=== PATIENT | male | born 1995 | race Caucasian/White ===

== ENCOUNTER 2017-10-07 16:39 | Emergency (ER) | payer SELFPAY ==
[2017-10-07 17:28] VITALS: BP 123/69; PULSE 73; RESP 18; TEMP 36.4; O2SAT 98; BMI 31.1
--- NOTE | 2017-10-07 17:35 | XR_ITS ---
XR chest 2V HISTORY: Shortness of air ITS.REASON: SOA ORDERING PHYSICIAN: Jarred Trivedi MD PATIENT AGE: 22 years COMPARISON: 05/12/2008 FINDINGS: The cardiomediastinal silhouette and pulmonary vascularity are within normal limits. The lungs are clear without infiltrates, suspicious nodules, or pleural effusions. Nodular opacity is once again noted in the lung base posteriorly as seen on the lateral view unchanged measuring 8 mm may represent a granuloma. No acute bony abnormalities. IMPRESSION: No change with no acute finding
[2017-10-07 17:48] VITALS: PULSE 72; PULSE 80
[2017-10-07 18:02] VITALS: BP 114/64; PULSE 77; RESP 18; TEMP 36.9; O2SAT 100
--- NOTE | 2017-10-07 19:19 | HMH.EDASTHMA ---
ED Disposition Clinical Impression: Asthma with acute exacerbation Qualifiers: Asthma severity: moderate Asthma persistence: unspecified Qualified Code(s): J45.901 - Unspecified asthma with (acute) exacerbation Disposition: Home, Self-Care Condition on Discharge: Good Instructions: Asthma -- Adult Additional Instructions: use meds and see pcp for follow up Prescriptions: predniSONE [Prednisone 20mg Tab] 20 mg PO DAILY #10 tab - Critical Care Critical Care Time: No Attestation: On 10/07/17, the high probability of a clinically significant, sudden or life threatening deterioration of the following system(s) required my full and direct attention, intervention and personal management. The time I documented below is in addition to time spent performing reported procedures but includes the following listed in this critical care notation. Medical Decision Making - Medical Records Medical records reviewed: Yes: I reviewed the patient's medical records. Vital Signs: 10/07/17 17:28 10/07/17 17:48 10/07/17 18:02 Temperature 97.6 F 98.5 F Temperature Source Oral Oral Pulse Rate 80 Pulse Rate [Apical] 73 77 Respiratory Rate 18 18 Blood Pressure [Right Arm] 123/69 114/64 Blood Pressure Mean [Right Arm] 87 80 Blood Pressure Source [Right Arm] Automatic Cuff Automatic Cuff Blood Pressure Position [Right Arm] Sitting Sitting 02 Sat by Pulse Oximetry 98 100 Oxygen Delivery Method Room Air Room Air Orders (Tests/Meds): ED MEDICATIONS Generic Name Dose Route Start Last Admin Trade Name Freq PRN Reason Stop Dose Admin Albuterol Sulfate 2 puffs 10/07/17 17:36 10/07/17 17:39 Proventil-Hfa 90mcg/Puff Inhaler 11/06/17 17:35 2 1000units Q6HP PRN Administration Shortness Of Breath Discontinued Medications Generic Name Dose Route Start Last Admin Trade Name Freq PRN Reason Stop Dose Admin Albuterol/Ipratropium 3 ml 10/07/17 17:34 10/07/17 17:40 Duoneb 3ml Neb IH 10/07/17 17:35 3 ml ONCE ONE Administration Miscellaneous 1 unit 10/07/17 17:34 10/07/17 17:40 Aerochamber/Optihaler MC 10/07/17 17:35 1 unit ONCE ONE Administration Miscellaneous 1 unit 10/07/17 17:36 Aerochamber/Optihaler MC 10/07/17 17:37 ONCE ONE ORDERS Category Date Time Status CXR 2 view (NOT portable) [XR chest 2V] Stat Exams 10/07/17 17:35 Taken - Radiology Data #1 Image(s): Chest Image Reviewed: Yes I reviewed the patient's radiology image Preliminary Findings: Normal/NAD - ECG Data Tracing #1 I reviewed this ECG and interpreted as documented below: Ischemic changes: non-specific ST-T wave changes - Jon Inquiry Pt receiving controlled substance: No Asthma HPI - General Chief Complaint: Asthma Stated Complaint: astshma attack Time Seen by Provider: 10/07/17 19:19 Mode of Arrival - ED Triage: Ambulatory ED Triage Source of Information: Patient, Significant Other ED Triage Limitations: No Limitations Description of Symptoms (Recalled from ER Triage Doc. by RN): ASTHMA ATTACK - History of Present Illness HPI Narrative: acute episodes of asthma over the last 3 days MD complaint: asthma attack , wheezing Onset (ago): day(s) Severity: moderate Associated symptoms: dry cough Asthma History: childhood onset - Related Data Current Asthma Therapy: none Previous Rx's Medication Instructions Recorded predniSONE [Prednisone 20mg 20 mg PO DAILY #10 tab 10/07/17 Tab] Allergies Allergy/AdvReac Type Severity Reaction Status Date / Time No Known Allergies Allergy Unverified 08/27/17 15:01 [facility] History I have reviewed the patient's past medical history: Yes Medical History: Denies:: Cancer, Diabetes Mellitus Type 1, Diabetes Mellitus Type 2, MRSA Amputation: No Fractures: No - *Social History Alcohol Intake: never - Psychiatric History Expresses thoughts of harming self/others: None Suicide Plan Desc
--- NOTE | 2017-10-07 19:24 | ED_ITS ---
ED Disposition Clinical Impression: Asthma with acute exacerbation Qualifiers: Asthma severity: moderate Asthma persistence: unspecified Qualified Code(s): J45.901 - Unspecified asthma with (acute) exacerbation Disposition: Home, Self-Care Condition on Discharge: Good Instructions: Asthma -- Adult Additional Instructions: use meds and see pcp for follow up Prescriptions: predniSONE [Prednisone 20mg Tab] 20 mg PO DAILY #10 tab - Critical Care Critical Care Time: No Attestation: On 10/07/17, the high probability of a clinically significant, sudden or life threatening deterioration of the following system(s) required my full and direct attention, intervention and personal management. The time I documented below is in addition to time spent performing reported procedures but includes the following listed in this critical care notation. Medical Decision Making - Medical Records Medical records reviewed: Yes: I reviewed the patient's medical records. Vital Signs: 10/07/17 17:28 10/07/17 17:48 10/07/17 18:02 Temperature 97.6 F 98.5 F Temperature Source Oral Oral Pulse Rate 80 Pulse Rate [Apical] 73 77 Respiratory Rate 18 18 Blood Pressure [Right Arm] 123/69 114/64 Blood Pressure Mean [Right Arm] 87 80 Blood Pressure Source [Right Arm] Automatic Cuff Automatic Cuff Blood Pressure Position [Right Arm] Sitting Sitting 02 Sat by Pulse Oximetry 98 100 Oxygen Delivery Method Room Air Room Air Orders (Tests/Meds): ED MEDICATIONS Generic Name Dose Route Start Last Admin Trade Name Freq PRN Reason Stop Dose Admin Albuterol Sulfate 2 puffs 10/07/17 17:36 10/07/17 17:39 Proventil-Hfa 90mcg/Puff Inhaler 11/06/17 17:35 2 1000units Q6HP PRN Administration Shortness Of Breath Discontinued Medications Generic Name Dose Route Start Last Admin Trade Name Freq PRN Reason Stop Dose Admin Albuterol/Ipratropium 3 ml 10/07/17 17:34 10/07/17 17:40 Duoneb 3ml Neb IH 10/07/17 17:35 3 ml ONCE ONE Administration Miscellaneous 1 unit 10/07/17 17:34 10/07/17 17:40 Aerochamber/Optihaler MC 10/07/17 17:35 1 unit ONCE ONE Administration Miscellaneous 1 unit 10/07/17 17:36 Aerochamber/Optihaler MC 10/07/17 17:37 ONCE ONE ORDERS Category Date Time Status CXR 2 view (NOT portable) [XR chest 2V] Stat Exams 10/07/17 17:35 Taken - Radiology Data #1 Image(s): Chest Image Reviewed: Yes I reviewed the patient's radiology image Preliminary Findings: Normal/NAD - ECG Data Tracing #1 I reviewed this ECG and interpreted as documented below: Ischemic changes: non-specific ST-T wave changes - Jon Inquiry Pt receiving controlled substance: No Asthma HPI - General Chief Complaint: Asthma Stated Complaint: astshma attack Time Seen by Provider: 10/07/17 19:19 Mode of Arrival - ED Triage: Ambulatory ED Triage Source of Information: Patient, Significant Other ED Triage Limitations: No Limitations Description of Symptoms (Recalled from ER Triage Doc. by RN): ASTHMA ATTACK - History of Present Illness HPI Narrative: acute episodes of asthma over the last 3 days MD complaint: asthma attack , wheezing Onset (ago): day(s)
[2017-10-07 19:31] VITALS: BP 137/74; PULSE 62; RESP 18; O2SAT 100
== END 2017-10-07 19:34 | disposition home or self-care (01) ==
PROVIDERS: Emergency Provider Emergency Medicine
DX: J45.901 Unspecified asthma with (acute) exacerbation (principal); Z88.1 Allergy status to other antibiotic agents
CPT/HCPCS: 71046; 93005; 93041; 99283

== ENCOUNTER → 2019-11-02 08:16 | Outpatient (CLI) | payer OTHER, SELFPAY ==
--- NOTE | 2019-11-02 08:21 | MR_ITS ---
PROCEDURE: MR KNEE LT WO CON CLINICAL INDICATION: evaluate for meniscal tear Pain, popping and swelling, medial pain the COMPARISON: XR KNEE LT 3V from 10/11/2019 TECHNIQUE: Routine multiplanar multi echo sequences are performed without gadolinium enhancement. FINDINGS: There is a moderate degree of motion artifact which does decrease the sensitivity of the exam. Study was repeated and best images utilized. The cruciate ligaments appear intact. The collateral ligaments, patellar tendon, and quadriceps tendon appears intact. No obvious meniscal tear. The patellar cartilage is preserved. There is some minimal lateral patellar subluxation. Small knee joint effusion is noted. The joint spaces are well preserved with no significant arthritic changes apparent. IMPRESSION: No definite evidence internal derangement. Motion artifact does somewhat limit the exam. There is a small knee joint effusion Dictated by: Massimo Sunshine MD 11/04/2019 08:21 Electronically signed by Massimo Sunshine MD in [place] 11/04/2019 08:21
== END ==
PROVIDERS: PCP Family Medicine; Visit Provider Orthopaedic Surgery
DX: S83.92XA Sprain of unspecified site of left knee, initial encounter (principal)
CPT/HCPCS: 73721

== ENCOUNTER 2019-12-03 16:00 | Outpatient (RCR) | payer OTHER, SELFPAY | END 2019-12-03 16:05 | disposition home or self-care (01) | LOC: PT 16:00 | PROVIDERS: PCP Family Medicine; Visit Provider Orthopaedic Surgery | DX: M25.562 Pain in left knee (principal) | CPT/HCPCS: 97010; 97014; 97110; 97163; 97760; G0283 ==

== ENCOUNTER 2020-02-13 13:40 | Emergency (ER) | payer OTHER, SELFPAY ==
[2020-02-13 14:01] VITALS: BP 121/70; PULSE 70; RESP 20; TEMP 37.4; O2SAT 98; BMI 38.6
--- NOTE | 2020-02-13 14:16 | HMH.EDUTC ---
[facility] [place] Clinical Impression: Gastroenteritis Asthma with acute exacerbation Qualifiers: Asthma severity: unspecified severity Asthma persistence: unspecified Qualified Code(s): J45.901 - Unspecified asthma with (acute) exacerbation Disposition: Home, Self-Care Condition on Discharge: Good Instructions: Asthma -- Adult, Viral Gastroenteritis Additional Instructions: Drink plenty of fluids. Take tylenol or ibuprofen for pain or fever. Take the medications as directed. Follow up with your regular doctor. GO TO THE ER FOR ANY WORSENING SYMPTOMS Prescriptions: Ondansetron [Zofran 4mg ODT] 4 mg PO Q8HP PRN #20 tab.rapdis PRN Reason: Nausea Transmission Status: Received by [facility] # Azithromycin [Z-Jeremias 250mg Tab*] 250 mg PO UD DOSE PK #6 tab Transmission Status: Received by [facility] # Referrals: Slim Yuen MD [Primary Care Provider] - Forms: Work/School Release Time of Disposition: 14:32 Medical Decision Making - Medical Records Medical records reviewed: No: I reviewed the patient's medical records. - Jon Inquiry Pt receiving controlled substance: No Vital Signs: 02/13/20 14:01 02/13/20 14:36 Temperature 99.3 F 99.3 F Temperature Source Oral Oral Pulse Rate 81 Pulse Rate [Right Brachial] 70 Respiratory Rate 20 22 Blood Pressure 129/68 Blood Pressure [Right Arm] 121/70 Blood Pressure Mean [Right Arm] 87 Blood Pressure Source Automatic Cuff Blood Pressure Source [Right Arm] Automatic Cuff Blood Pressure Position Sitting Blood Pressure Position [Right Arm] Sitting 02 Sat by Pulse Oximetry 98 Oxygen Delivery Method Room Air Room Air Orders (Tests/Meds): ORDERS Category Date Time Status SARS-CoV-2, [place] ([place]) Stat Lab 02/13/20 14:30 Received [facility] [place] HPI - General Stated complaint: vomiting,diarrhea,cough Time Seen by Provider: 02/13/20 14:16 Mode of Arrival: Ambulatory Source of Information: Patient Limitations: No Limitations Description of Symptoms (Recalled from Triage Doc. by RN): Pt c/o n/v, diarrhea, fever x 1 weeks. he denies any other symptoms at this time. HEENT Symptoms (Recalled from RN notes): No Resp Symptoms (Recalled from RN notes): No Skin Symptoms (Recalled from RN notes): No MS Symptoms (Recalled from RN notes): No Functional Status (Recalled from RN notes): Na - History of Present Illness Provider Complaint: He c/o n/v/d for the past 1 week. He has also had a dry cough and had a fever up to 100.4 at times. He states that he does not feel very bad and his GI symptoms are getting better, but his work ([employer]) would like for him to be checked for COVID-19 before he returns there. He does have a history of asthma, but denies significant worsening of his symptoms. - Related Data Home Medications Medication Instructions Recorded Confirmed albuterol sulfate 90 mcg/actuation INHALATION 10/23/19 12/04/19 aerosol inhaler beclomethasone dipropionate 80 INTRANASAL 10/23/19 12/04/19 mcg/actuation nasal HFA inhaler Previous Rx's Medication Instructions Recorded Meloxicam [Mobic 15 mg tab] 15 mg PO DAILY #10 tab 10/11/19 Azithromycin [Z-Jeremias 250mg Tab*] 250 mg PO UD DOSE PK #6 tab 02/13/20 Ondansetron [Zofran 4mg ODT] 4 mg PO Q8HP PRN #20 tab.rapdis 02/13/20 Allergies Allergy/AdvReac Type Severity Reaction Status Date / Time No Known Allergies Allergy Verified 02/13/20 14:08 - Worker's Comp Is this a Worker's Comp case?: No H History - Hepatitis A Screen Drug use history?: No High risk sexual behaviors?: No History of sexually transmitted infection?: No Currently employed?: No Childcare worker?: No Do you have indoor plumbing?: Yes Do you have electricity?: Yes Attestation statement:: This patient has been screened for Hepatitis A risk factors. I have reviewed the patient's past medical history: Yes Medical History: Reports:: Asthma Denies:: Cancer,
[2020-02-13 14:36] VITALS: BP 129/68; PULSE 81; RESP 22; TEMP 37.4; O2SAT 98
[2020-02-15 08:25] LABS: Covid-19 Nasal PCR Sendout UK NOT DETECTED
== END 2020-02-13 14:39 | disposition home or self-care (01) ==
PROVIDERS: Emergency Provider Nurse Practitioner Family; PCP Family Medicine
DX: K52.9 Noninfective gastroenteritis and colitis, unspecified (principal); J45.901 Unspecified asthma with (acute) exacerbation
CPT/HCPCS: 99201; U0003

== ENCOUNTER 2020-02-16 16:26 | Emergency (ER) | payer OTHER, SELFPAY ==
[2020-02-16 16:56] VITALS: BP 147/83; PULSE 98; RESP 19; TEMP 36.6; O2SAT 94; BMI 40.3
--- NOTE | 2020-02-16 17:01 | HMH.EDUTC ---
[facility] [place] Disposition Clinical Impression: Abdominal discomfort in right upper quadrant Disposition: Home, Self-Care Condition on Discharge: Good Instructions: Acute Abdominal Pain, DI for General Gallbladder Conditions Additional Instructions: Make sure to follow up with Family doctor to complete ordered testing as was ordered earlier today by your PCP *Return if needed Straight to ER if abdominal pain returns or worsens Follow up with family doctor in the next 48-72 hours if no improvement or any worsening of symptoms Referrals: Slim Yuen MD [Primary Care Provider] - As needed Forms: Work/School Release Time of Disposition: 17:38 Medical Decision Making - Jon Inquiry Pt receiving controlled substance: No Jon was queried for this patient: No Vital Signs: 02/16/20 16:56 Temperature 97.9 F Temperature Source Oral Pulse Rate [Right Brachial] 98 H Respiratory Rate 19 Blood Pressure [Right Arm] 147/83 H Blood Pressure Mean [Right Arm] 104 Blood Pressure Source [Right Arm] Automatic Cuff Blood Pressure Position [Right Arm] Sitting 02 Sat by Pulse Oximetry 94 L Oxygen Delivery Method Room Air Orders (Tests/Meds): ED MEDICATIONS Discontinued Medications Generic Name Dose Route Start Last Admin Trade Name Freq PRN Reason Stop Dose Admin Belladonna Alkaloids 60 ml 02/16/20 17:13 02/16/20 17:23 Gi Cocktail 60ml Udc PO 02/16/20 17:14 60 ml ONCE ONE Administration - Reevaluation(s) Time: 17:37 Reevaluation #1: Patient states that he feels much better after GI Cocktail States that pain is now gone and feeling much better Medical Decision Narrative: Discussed transfer to ED due to patient complaining of pain in his right upper abdomen, seen PCP earlier today and was scheduled for testing in the next couple of days but came to [facility] to see if he could get testing done sooner, Patient advised that we could transfer him to the ED for further evaluation and tests if needed and patient refused transfer States that he would just follow up with PCP for further testing as scheduled that he did not want to go to ED patient aware of risks and still declined transfer. Patient did report upset stomach and feeling of bloating and was given GI cocktail [facility] [place] HPI - General Stated complaint: R side abd pain, diarrhea Time Seen by Provider: 02/16/20 17:01 Mode of Arrival: Ambulatory Source of Information: Patient Limitations: No Limitations Description of Symptoms (Recalled from Triage Doc. by RN): PATIENT C/O RIGHT SIDE PAIN WITH NAUSEA, VOMITING AND DIARRHEA X 2 WEEKS HEENT Symptoms (Recalled from RN notes): No Resp Symptoms (Recalled from RN notes): No Skin Symptoms (Recalled from RN notes): No MS Symptoms (Recalled from RN notes): No Functional Status (Recalled from RN notes): WNL - History of Present Illness Provider Complaint: Patient states that he has been having nausea vomiting and diarrhea on and off for 2 weeks States that he seen family doctor earlier today in the office and they was ordering tests on his gallbladder but told him that it may take a couple days to get the test scheduled. States that he thought if he come up here maybe he could get the tests done quicker - Related Data Allergies Allergy/AdvReac Type Severity Reaction Status Date / Time No Known Allergies Allergy Verified 02/13/20 14:08 - Worker's Comp Is this a Worker's Comp case?: No H History - Hepatitis A Screen Drug use history?: No High risk sexual behaviors?: No History of sexually transmitted infection?: No Currently employed?: No Childcare worker?: No Do you have indoor plumbing?: Yes Do you have electricity?: Yes Attestation statement:: This patient has been screened for Hepatitis A risk factors. I have reviewed the patient's past medical history: Yes Medical History: Reports:: Asthma Denies:: Cancer, Diabetes Mellitus Type 1, Diabetes Mellitus Type 2, MRSA Laterality Cases: Bilateral: To
[2020-02-16 17:45] VITALS: BP 147/83; PULSE 98; RESP 19; TEMP 36.6; O2SAT 94
== END 2020-02-16 17:49 | disposition home or self-care (01) ==
PROVIDERS: Emergency Provider Nurse Practitioner; PCP Family Medicine
DX: R10.11 Right upper quadrant pain (principal); J45.909 Unspecified asthma, uncomplicated
CPT/HCPCS: 99201

== ENCOUNTER → 2020-02-17 17:52 | Outpatient (CLI) | payer OTHER, SELFPAY ==
[2020-02-17 17:55] LABS: Adenovirus F 40/41, stool Not Detected (NotDetected); Astrovirus Not Detected (NotDetected); Campylobacter Not Detected (NotDetected); Clostridium Difficile A/B, PCR Not Detected (NotDetected); Cryptosporidium Not Detected (NotDetected); Cyclospora Cayetanesis Not Detected (NotDetected); Entamoeba histolytica Not Detected (NotDetected); Enteroaggregative E coli Not Detected (NotDetected); Enteropathogenic E coli Not Detected (NotDetected); Enterotoxigenic E coli Not Detected (NotDetected); Norovirus Not Detected (NotDetected); Plesimonas Shigalloides, PCR Not Detected (NotDetected); Rotavirus A Not Detected (NotDetected); Salmonella, PCR Not Detected (NotDetected); Sapovirus Not Detected (NotDetected); Shiga-like toxin E coli Not Detected (NotDetected); Shigella Enterovasive E coli Not Detected (NotDetected); Vibrio Cholerae Not Detected (NotDetected); Vibrio, PCR Not Detected (NotDetected); Yersinia Entercolitica, PCR Not Detected (NotDetected)
[2020-02-17 22:00] LABS: Giardia lamblia Detected (NotDetected)
== END ==
PROVIDERS: PCP Family Medicine; Visit Provider Nurse Practitioner
DX: R19.7 Diarrhea, unspecified (principal); A07.1 Giardiasis [lambliasis]
CPT/HCPCS: 87507

== ENCOUNTER → 2020-02-24 07:57 | Outpatient (CLI) | payer OTHER, SELFPAY ==
--- NOTE | 2020-02-24 08:05 | US_ITS ---
PROCEDURE: US ABDOMEN LIMITED CLINICAL INDICATION: ABD PAIN,V/N Abdominal pain with nausea and diarrhea COMPARISON: No exams were available for comparison FINDINGS: PANCREAS: Pancreas is not well delineated due to overlying bowel gas. CT or MRI without and with contrast with pancreatic protocol may provide further evaluation if clinically desired. LIVER: Diffuse increased echogenicity of the liver with poor through transmission of sound consistent with hepatic steatosis. No focal liver lesion demonstrated. There is appropriate direction of blood flow within non dilated portal vein.RIGHT KIDNEY: Unremarkable. Normal size and echogenicity. No hydronephrosis GALLBLADDER: Gallbladder is contracted. No stones apparent. Common bile duct is normal at 3 mm IMPRESSION: Contracted gallbladder without stones. Fatty liver. Poor pancreas visualization. Dictated by: Massimo Sunshine MD 02/24/2020 17:00 Electronically signed by Massimo Sunshine MD in [place] 02/24/2020 17:00
--- NOTE | 2020-02-24 08:05 | FL_ITS ---
PROCEDURE: FL UPPER GI SMALL BOWEL CLINICAL INDICATION: ABD PAIN,N/V COMPARISON: No exams were available for comparison TECHNIQUE: FLUOROSCOPY TIME : 2 minutes and 46 seconds FINDINGS: The esophagus, stomach, and duodenum have an unremarkable appearance.There is no evidence of hiatal hernia. No ulcer or mass evident. No mucosal abnormalities apparent. There is normal peristalsis. The small bowel has an unremarkable appearance. No evidence of obstruction. No mucosal abnormalities or masses. Spot views of the terminal ileum are unremarkable. IMPRESSION: Negative upper GI and small-bowel follow-through Dictated by: Massimo Sunshine MD 02/25/2020 17:34 Electronically signed by Massimo Sunshine MD in [place] 02/25/2020 17:34
== END ==
PROVIDERS: PCP Family Medicine; Visit Provider Family Medicine
DX: R10.9 Unspecified abdominal pain (principal); R11.10 Vomiting, unspecified; R19.7 Diarrhea, unspecified
CPT/HCPCS: 74246; 74248; 76705

== ENCOUNTER 2020-07-01 15:13 | Emergency (ER) | payer OTHER, SELFPAY ==
[2020-07-01 16:10] VITALS: BP 129/77; PULSE 86; RESP 16; TEMP 36.8; O2SAT 97; BMI 42.7
--- NOTE | 2020-07-01 16:27 | HMH.EDUTC ---
[facility] [place] Disposition Clinical Impression: Right upper quadrant abdominal pain Disposition: Home, Self-Care Condition on Discharge: Good Instructions: DI for General Gallbladder Conditions Additional Instructions: [place] diet. Follow up with Dr Mclaughlin next week. Prescriptions: Dicyclomine HCl [Bentyl 10mg capsule] 10 mg PO TID 10 Days #30 cap Transmission Status: Pending to [facility] Records # Ondansetron [Zofran 4mg ODT] 4 mg PO TIDP PRN 10 Days #30 tab PRN Reason: Nausea And Vomiting Transmission Status: Pending to [facility] Records # Referrals: Slim Yuen MD [Primary Care Provider] - Medical Decision Making - Medical Records Medical records reviewed: Yes: I reviewed the patient's medical records. - Jon Inquiry Pt receiving controlled substance: No Vital Signs: 07/01/20 16:10 Temperature 98.2 F Temperature Source Oral Pulse Rate [Right Brachial] 86 Respiratory Rate 16 Blood Pressure [Right Arm] 129/77 Blood Pressure Mean [Right Arm] 94 Blood Pressure Source [Right Arm] Automatic Cuff Blood Pressure Position [Right Arm] Sitting 02 Sat by Pulse Oximetry 97 Oxygen Delivery Method Room Air [facility] [place] HPI - General Stated complaint: Possible gallbladder pain Time Seen by Provider: 07/01/20 16:28 Mode of Arrival: Ambulatory Source of Information: Patient Limitations: No Limitations Description of Symptoms (Recalled from Triage Doc. by RN): PATIENT C/O RUQ PAIN, VOMITING, AND DIARRHEA SINCE LAST NIGHT HEENT Symptoms (Recalled from RN notes): No Resp Symptoms (Recalled from RN notes): No Skin Symptoms (Recalled from RN notes): No MS Symptoms (Recalled from RN notes): No Functional Status (Recalled from RN notes): WNL - History of Present Illness Provider Complaint: Patient has had RUQ pain, vomiting and diarrhea since last night. Was evaluated for gallbladder disease over the summer, but when he saw the surgeon, he did not want to take gallbladder out. He did fairly well until after he ate dinner last night. No fever. Onset (ago): day(s) (1) Location: abdomen Relieving factors: none Exacerbating factors: none Associated symptoms: nausea/vomiting Treatments prior to arrival: none - Related Data Previous Rx's Medication Instructions Recorded Dicyclomine HCl [Bentyl 10mg 10 mg PO TID 10 Days #30 cap 07/01/20 capsule] Ondansetron [Zofran 4mg ODT] 4 mg PO TIDP PRN 10 Days #30 tab 07/01/20 Allergies Allergy/AdvReac Type Severity Reaction Status Date / Time No Known Allergies Allergy Verified 02/13/20 14:08 - Worker's Comp Is this a Worker's Comp case?: No [facility] History - Hepatitis A Screen Drug use history?: No High risk sexual behaviors?: No History of sexually transmitted infection?: No Currently employed?: No Childcare worker?: No Do you have indoor plumbing?: Yes Do you have electricity?: Yes Attestation statement:: This patient has been screened for Hepatitis A risk factors. I have reviewed the patient's past medical history: Yes Medical History: Reports:: Asthma Denies:: Cancer, Diabetes Mellitus Type 1, Diabetes Mellitus Type 2, MRSA Laterality Cases: Bilateral: Tonsillectomy Amputation: No Fractures: No - Social History Smoking Status: Never smoker Tobacco Type: smokeless tobacco # Packs/Day (cigarettes): 0 Alcohol Intake: never Occupational Status: other Housing: house Household Members: spouse, children Family Hx:: No significant family history ROS Obtained: Yes All systems reviewed & no additional complaints - Gastrointestinal Gastrointestingal: Reports: abdominal pain, loose stools, vomiting Physical Exam - General General appearance: alert, in no apparent distress - Head Head exam: atraumatic, normocephalic, normal inspection - Eye Eye exam: Present: normal appearance, PERRL, EOMI - ENT ENT exam: Present: normal exam, normal oropharynx, mucous membranes moist, TM's normal bilaterally, normal external
[2020-07-01 16:33] VITALS: BP 129/77; PULSE 86; RESP 16; TEMP 36.8; O2SAT 97
== END 2020-07-01 16:35 | disposition home or self-care (01) ==
PROVIDERS: Emergency Provider Physician Assistant; PCP Family Medicine
DX: R10.11 Right upper quadrant pain (principal); J45.909 Unspecified asthma, uncomplicated
CPT/HCPCS: 99201

== ENCOUNTER 2020-08-15 14:08 | Emergency (ER) | payer OTHER, SELFPAY ==
--- NOTE | 2020-08-15 14:17 | PC.NURSE ---
Pt states he thought that [facility] would not test him for chlamydia and thats why he checked into the ER. Educated pt that they will test him and if he is willing he can be seen over there, pt agreed and stated he would go to the [facility].
[2020-08-15 14:19] VITALS: BP 133/75; PULSE 103; RESP 12; TEMP 36.6; O2SAT 99; BMI 47.5
[2020-08-15 14:26] VITALS: BP 133/75; PULSE 103; RESP 12; TEMP 36.7; O2SAT 99; BMI 47.5
[2020-08-15 14:32] VITALS: BP 133/75; PULSE 103; RESP 12; TEMP 36.7; O2SAT 99
--- NOTE | 2020-08-15 14:50 | HMH.EDUTC ---
[facility] [place] Disposition Clinical Impression: STD exposure Disposition: Home, Self-Care Condition on Discharge: Good Instructions: True or False: It Is Possible for a Person to Get a Sexually Transmitted In, Facts About Sexually Transmitted Infections, How to Detect and Treat STDs Additional Instructions: Your test should be back in the next 5-7 days make sure to follow up with your Family Doctor for the results and further treatment if needed, make sure to inform them that you was treated in the [facility] No sex for the next 7 days to give the medication time to clear the infection Return if needed Your partner needs to be treated, make sure they follow up with the OBGYN for further treatment and evaluation if needed Straight to ER if any life threatening symptoms Referrals: Slim Yuen MD [Primary Care Provider] - As needed Time of Disposition: 14:59 Medical Decision Making - Jon Inquiry Pt receiving controlled substance: No Jon was queried for this patient: No Vital Signs: 08/15/20 14:19 08/15/20 14:26 08/15/20 14:32 Temperature 98 F 98.0 F 98.0 F Temperature Source Oral Oral Pulse Rate 103 H Pulse Rate [Right] 103 H 103 H Respiratory Rate 12 12 12 Blood Pressure 133/75 Blood Pressure [Right Arm] 133/75 133/75 Blood Pressure Mean [Right Arm] 94 94 Blood Pressure Source [Right Arm] Automatic Cuff Blood Pressure Position [Right Arm] Sitting 02 Sat by Pulse Oximetry 99 99 Oxygen Delivery Method Room Air Orders (Tests/Meds): ED MEDICATIONS Discontinued Medications Generic Name Dose Route Start Last Admin Trade Name Leonidas PRN Reason Stop Dose Admin Azithromycin 1,000 mg 08/15/20 14:53 08/15/20 15:07 Azithromycin 250mg Tablet PO 08/15/20 14:54 1,000 mg ONCE ONE Administration Protocol Ceftriaxone Sodium 250 mg 08/15/20 14:53 08/15/20 15:10 Ceftriaxone 500mg Vial IM 08/15/20 14:54 250 mg ONCE ONE Administration Protocol Dicyclomine HCl 10 mg 08/15/20 21:00 Dicyclomine 10mg Capsule PO 09/14/20 20:59 TID KESHIA Lidocaine HCl 0 ml 08/15/20 14:53 08/15/20 15:11 Lidocaine 1% 5ml Pf Vial IM 08/15/20 14:54 1.8 ml ONCE ONE Administration Ondansetron HCl 4 mg 08/15/20 14:57 Ondansetron 4mg Odt PO 09/14/20 14:56 TIDP PRN Nausea And Vomiting [facility] [place] HPI - General Stated complaint: stomach and male area Time Seen by Provider: 08/15/20 14:52 Mode of Arrival: Ambulatory Source of Information: Patient Limitations: No Limitations Description of Symptoms (Recalled from Triage Doc. by RN): STD testing HEENT Symptoms (Recalled from RN notes): No Resp Symptoms (Recalled from RN notes): No Skin Symptoms (Recalled from RN notes): No MS Symptoms (Recalled from RN notes): No Functional Status (Recalled from RN notes): wnl - History of Present Illness Provider Complaint: Patient state that his is and she was recently checked by the OBGYN and was tested and came back that she was positive for Chlamydia States that they recommended that he come in and get tested and treated also so he came in today States that he is not having any symptoms denies burning with urination and denies discharge from penis - Related Data Previous Rx's Medication Instructions Recorded Dicyclomine HCl [Bentyl 10mg 10 mg PO TID 10 Days #30 cap 07/01/20 capsule] Ondansetron [Zofran 4mg ODT] 4 mg PO TIDP PRN 10 Days #30 tab 07/01/20 Allergies Allergy/AdvReac Type Severity Reaction Status Date / Time No Known Allergies Allergy Verified 02/13/20 14:08 - Worker's Comp Is this a Worker's Comp case?: No Is this an [facility] Worker's Comp?: No Is this a [facility] Worker's Comp?: No [facility] History - Hepatitis A Screen Drug use history?: No High risk sexual behaviors?: No History of sexually transmitted infection?: No Currently employed?: No Childcare worker?: No Do you have indoor plumbing?: Yes Do you have electricity?: Yes Minda
[2020-08-19 09:43] LABS: Neisseria gonorrhoeae, NAA Negative (Negative)
== END 2020-08-15 15:15 | disposition home or self-care (01) ==
LOC: ER 14:20 → UTC 14:21
PROVIDERS: Emergency Provider Nurse Practitioner; PCP Family Medicine
DX: Z20.2 Contact with and (suspected) exposure to infections with a predominantly sexual mode of transmission (principal); J45.909 Unspecified asthma, uncomplicated; F17.290 Nicotine dependence, other tobacco product, uncomplicated
CPT/HCPCS: 87491; 87591; 96372; 99202

== ENCOUNTER 2020-10-21 21:27 | Emergency (ER) | payer OTHER, SELFPAY ==
[2020-10-21 21:37] VITALS: BP 129/76; PULSE 92; RESP 17; TEMP 36.6; O2SAT 98; BMI 31.5
--- NOTE | 2020-10-21 21:42 | XR_ITS ---
PROCEDURE: XR FOOT LT MIN 3V Referring Doctor: Jalen Martinez Patient Age:25Y CLINICAL INDICATION: pain Pain lateral aspect of foot after kicking ABER COMPARISON: No exams were available for comparison TECHNIQUE: 3 View AP, Oblique, Lateral FINDINGS: Left foot intact with no fracture or dislocation. No lytic or blastic change. There is normal mineralization. The joint spaces are well-preserved. No significant degenerative/arthritic changes. No erosive changes evident. .. IMPRESSION: No acute findings. Left foot intact-no fracture evident Dictated by: Donald Quijano MD 10/22/2020 11:36 Donald Quijano MD in [place] 10/22/2020 11:36
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
[2020-10-21 22:01] VITALS: BP 130/70; PULSE 75; RESP 15; TEMP 36.8; O2SAT 99
== END 2020-10-21 22:05 | disposition home or self-care (01) ==
PROVIDERS: Emergency Provider Emergency Medicine; PCP Family Medicine
DX: S93.402A Sprain of unspecified ligament of left ankle, initial encounter (principal); W22.8XXA Striking against or struck by other objects, initial encounter; Y92.69 Other specified industrial and construction area as the place of occurrence of the external cause; Y99.0 Civilian activity done for income or pay; J45.909 Unspecified asthma, uncomplicated
CPT/HCPCS: 73630; 99282

== ENCOUNTER 2020-11-06 18:19 | Emergency (ER) | payer OTHER, SELFPAY ==
[2020-11-06 18:50] VITALS: BP 123/83; PULSE 94; RESP 14; TEMP 36.9; O2SAT 95; BMI 42.7
--- NOTE | 2020-11-06 19:11 | HMH.EDUTC ---
[facility] [place] Disposition Clinical Impression: Viral syndrome, Exposure to COVID-19 virus Asthma with acute exacerbation Qualifiers: Asthma severity: unspecified severity Asthma persistence: unspecified Qualified Code(s): J45.901 - Unspecified asthma with (acute) exacerbation Disposition: Home, Self-Care Condition on Discharge: Good Instructions: DI for COVID-19 (Suspected or Confirmed ), Preventing the Spread of Coronavirus Discharge Instructions Additional Instructions: Drink plenty of fluids. Take tylenol for pain or fever. Return if you begin to have difficulty breathing. Follow up with your regular doctor. GO TO THE ER FOR ANY WORSENING SYMPTOMS Prescriptions: Albuterol Sulfate [Albuterol Sulfate Hfa] 2 puffs IH Q6HP PRN 30 Days #1 hfa.aer.ad PRN Reason: Shortness Of Breath Transmission Status: Pending to Travel Notes # Ondansetron [Zofran 4mg ODT] 4 mg PO Q8HP PRN #12 tab.rapdis PRN Reason: Nausea Transmission Status: Pending to Travel Notes # Benzonatate [Tessalon Perle 100mg Cap] 100 mg PO TIDP PRN #30 cap PRN Reason: Cough Transmission Status: Pending to Travel Notes # Azithromycin [Z-Jeremias 250mg Tab*] 250 mg PO UD DOSE PK #6 tab Transmission Status: Pending to Travel Notes # Referrals: Slim Yuen MD [Primary Care Provider] - Time of Disposition: 19:19 Medical Decision Making - Medical Records Medical records reviewed: No: I reviewed the patient's medical records. - Jon Inquiry Pt receiving controlled substance: No Vital Signs: 11/06/20 18:50 11/06/20 19:28 Temperature 98.5 F 98.5 F Temperature Source Oral Pulse Rate 94 H Pulse Rate [Right Brachial] 94 H Respiratory Rate 14 14 Blood Pressure 123/83 Blood Pressure [Right Arm] 123/83 Blood Pressure Mean [Right Arm] 96 Blood Pressure Source [Right Arm] Automatic Cuff Blood Pressure Position [Right Arm] Sitting 02 Sat by Pulse Oximetry 95 Oxygen Delivery Method Room Air - Lab Data Lab results reviewed: Yes: I reviewed the patient's lab results. Orders (Tests/Meds): ORDERS Category Date Time Status Covid-19 Nasal PCR ([facility]) Routine Lab 11/06/20 18:45 Received [facility] [place] HPI - General Stated complaint: covid test Time Seen by Provider: 11/06/20 19:11 Mode of Arrival: Ambulatory Source of Information: Patient Limitations: No Limitations Description of Symptoms (Recalled from Triage Doc. by RN): PATIENT RECENTLY HAD FEVER AND COUGH AND IS NEEDING A COVID TEST TO RETURN TO WORK HEENT Symptoms (Recalled from RN notes): No Resp Symptoms (Recalled from RN notes): No Skin Symptoms (Recalled from RN notes): No MS Symptoms (Recalled from RN notes): No Functional Status (Recalled from RN notes): WNL - History of Present Illness Provider Complaint: He states that 3 days ago he started feeling bad. He has had a fever up to 103, n/v and chest congestion. He denies any known exposure ot covid-19 or influenza. - Related Data Previous Rx's Medication Instructions Recorded Albuterol Sulfate [Albuterol 2 puffs IH Q6HP PRN 30 Days #1 11/06/20 Sulfate Hfa] hfa.aer.ad Azithromycin [Z-Jeremias 250mg Tab*] 250 mg PO UD DOSE PK #6 tab 11/06/20 Benzonatate [Tessalon Perle 100mg 100 mg PO TIDP PRN #30 cap 11/06/20 Cap] Ondansetron [Zofran 4mg ODT] 4 mg PO Q8HP PRN #12 tab.rapdis 11/06/20 Allergies Allergy/AdvReac Type Severity Reaction Status Date / Time No Known Allergies Allergy Verified 02/13/20 14:08 - Worker's Comp Is this a Worker's Comp case?: No [facility] History - Hepatitis A Screen Drug use history?: No High risk sexual behaviors?: No History of sexually transmitted infection?: No Currently employed?: No Childcare worker?: No Do you have indoor plumbing?: Yes Do you have electricity?: Yes Attestation statement:: This patient has been screened for Hepatitis A risk factors. I have reviewed the patient's past medical history: Yes Me
[2020-11-06 19:28] VITALS: BP 123/83; PULSE 94; RESP 14; TEMP 36.9; O2SAT 95
[2020-11-06 19:34] LABS: UTC Influenza A Antigen Negative (Negative)
[2020-11-06 19:35] LABS: UTC Influenza B Antigen Negative (Negative)
== END 2020-11-06 19:32 | disposition home or self-care (01) ==
PROVIDERS: Emergency Provider Nurse Practitioner Family; PCP Family Medicine
DX: Z20.822 Contact with and (suspected) exposure to COVID-19 (principal); B34.9 Viral infection, unspecified; J45.901 Unspecified asthma with (acute) exacerbation
CPT/HCPCS: 87804; 99202; G0463; U0003

== ENCOUNTER 2020-12-24 16:50 | Emergency (ER) | payer OTHER, SELFPAY ==
[2020-12-24 17:10] VITALS: BP 128/80; PULSE 94; RESP 17; TEMP 36.3; O2SAT 98; BMI 46.1
--- NOTE | 2020-12-24 17:32 | HMH.EDUTC ---
[facility] [place] Clinical Impression: COVID-19 virus test result unknown Disposition: Home, Self-Care Condition on Discharge: Good Instructions: COVID-19: Testing and Tracing Additional Instructions: self isolate until test results are known neg Referrals: Slim Yuen MD [Primary Care Provider] - Time of Disposition: 17:35 Medical Decision Making - Jon Inquiry Pt receiving controlled substance: No Vital Signs: 12/24/20 17:10 Temperature 97.4 F L Temperature Source Oral Pulse Rate [Right Brachial] 94 H Respiratory Rate 17 Blood Pressure [Right Arm] 128/80 Blood Pressure Mean [Right Arm] 96 Blood Pressure Source [Right Arm] Automatic Cuff Blood Pressure Position [Right Arm] Sitting 02 Sat by Pulse Oximetry 98 Oxygen Delivery Method Room Air Orders (Tests/Meds): ORDERS Category Date Time Status Covid-19 Nasal PCR ([facility]) Routine Lab 12/24/20 17:14 Received [facility] [place] HPI - General Chief complaint: [facility] Stated complaint: covid test Time Seen by Provider: 12/24/20 17:32 Mode of Arrival: Ambulatory Source of Information: Patient Limitations: No Limitations Description of Symptoms (Recalled from Triage Doc. by RN): COVID TEST FOR WORK. DENIES SYMPTOMS OR EXPOSURE HEENT Symptoms (Recalled from RN notes): No Resp Symptoms (Recalled from RN notes): No Skin Symptoms (Recalled from RN notes): No MS Symptoms (Recalled from RN notes): No Functional Status (Recalled from RN notes): WNL - History of Present Illness Provider Complaint: 25 yr old male presents for covid test. pt states he has no symptoms, at work they told him he had a temp and had to get covid test. - Related Data Allergies Allergy/AdvReac Type Severity Reaction Status Date / Time No Known Allergies Allergy Verified 02/13/20 14:08 - Worker's Comp Is this a Worker's Comp case?: No [facility] History - Hepatitis A Screen Drug use history?: No High risk sexual behaviors?: No History of sexually transmitted infection?: No Currently employed?: No Childcare worker?: No Do you have indoor plumbing?: Yes Do you have electricity?: Yes Attestation statement:: This patient has been screened for Hepatitis A risk factors. I have reviewed the patient's past medical history: Yes Medical History: Reports:: Asthma Denies:: Cancer, Diabetes Mellitus Type 1, Diabetes Mellitus Type 2, MRSA Laterality Cases: Bilateral: Tonsillectomy Amputation: No Fractures: No - Social History Smoking Status: Never smoker Tobacco Type: smokeless tobacco # Packs/Day (cigarettes): 0 Alcohol Intake: never Occupational Status: employed Housing: house Household Members: spouse, children Family Hx:: No significant family history ROS Obtained: Yes Systems reviewed as appropriate & no additional complaints - Constitutional Constitutional: Reports system reviewed and no additional complaints, except as docu, Denies body ache, Denies fatigue - Eyes Eyes: Reports system reviewed and no additional complaints, except as docu, Denies blurry vision - ENT Ears, Nose, Mouth, and Throat: Reports system reviewed and no additional complaints, except as docu, Denies epistaxis - Cardiovascular Cardiovascular: Reports system reviewed and no additional complaints, except as docu, Denies chest pain - Respiratory Respiratory: Reports system reviewed and no additional complaints, except as docu, Denies change in phlegm color - Gastrointestinal Gastrointestingal: Reports: system reviewed and no additional complaints, except as docu. Denies: belching - Genitourinary Male Genitourinary: Reports system reviewed and no additional complaints, except as docu - Musculoskeletal Musculoskeletal: Reports system reviewed and no additional complaints, except as docu, Denies joint pain - Integumentary/Breasts Skin/Breast: Reports system reviewed and no additional complaints, except as docu, Denies bleeding lesions - Neurologic Neurologic: Reports sys
[2020-12-24 17:37] VITALS: BP 128/80; PULSE 94; RESP 17; TEMP 36.3; O2SAT 98
== END 2020-12-24 17:39 | disposition home or self-care (01) ==
PROVIDERS: Emergency Provider Nurse Practitioner Family; PCP Family Medicine
DX: Z20.822 Contact with and (suspected) exposure to COVID-19 (principal)
CPT/HCPCS: 99202; G0463; U0003

== ENCOUNTER 2021-01-05 18:21 | Emergency (ER) | payer SELFPAY ==
[2021-01-05 18:21] VITALS: BP 151/89; PULSE 113; RESP 18; TEMP 36.6; O2SAT 98; BMI 43.2
[2021-01-05 18:30] VITALS: BP 136/85; PULSE 112; RESP 20; O2SAT 99
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
[2021-01-05 18:52] VITALS: BP 143/71; PULSE 76; RESP 17; TEMP 36.7; O2SAT 97
== END 2021-01-05 18:51 | disposition home or self-care (01) ==
PROVIDERS: Emergency Provider Emergency Medicine; PCP Nurse Practitioner Family
DX: S00.01XA Abrasion of scalp, initial encounter (principal); V43.02XA Car driver injured in collision with other type car in nontraffic accident, initial encounter; Y92.414 Local residential or business street as the place of occurrence of the external cause
CPT/HCPCS: 99281

== ENCOUNTER → 2021-05-25 11:49 | Outpatient (CLI) | payer OTHER, SELFPAY | PROVIDERS: PCP Family Medicine; Visit Provider Nurse Practitioner | DX: Z20.822 Contact with and (suspected) exposure to COVID-19 (principal); U07.1 COVID-19 | CPT/HCPCS: C9803; U0003; U0005 ==

== ENCOUNTER 2021-06-18 23:56 | Emergency (ER) | payer BC, OTHER, SELFPAY ==
[2021-06-18 23:58] VITALS: BP 112/78; PULSE 63; RESP 18; TEMP 37.3; O2SAT 97; BMI 45.0
--- NOTE | 2021-06-19 00:14 | XR_ITS ---
PROCEDURE INFORMATION: Exam: XR Chest Exam date and time: 06/19/2021 12:14 AM Age: 25 years old Clinical indication: Cough and shortness of breath; Additional info: Covid symptoms cough SOB TECHNIQUE: Imaging protocol: XR of the chest. Views: 2 views. COMPARISON: CR CXR2V XR chest 2V 08/13/2018 10:21 AM FINDINGS: Lungs: Unremarkable. No consolidation. Pleural spaces: Unremarkable. No pleural effusion. No pneumothorax. Heart/Mediastinum: Unremarkable. No cardiomegaly. Bones/joints: Unremarkable. IMPRESSION: No acute findings.
--- NOTE | 2021-06-19 00:35 | ECG_ITS ---
APPROVED REPORT Exam: Resting ECG HR:95 bpm ECG Measurements Heart Rate [address] 154 P 10 QRSd 100 QRS 45 QT 340 T 29 QTc 427 Conclusion Normal sinus rhythm Normal ECG Electronically signed by : Slim Smith MD 06/19/2021 21:20:19
[2021-06-19 00:41] LABS: Basophils # 0.1 K/mm3 (0-0.2); Basophils % 1.3 % (0.1-2.0); Eosinophils # 0.1 K/mm3 (0.0-0.4); Eosinophils % 1.1 % (0.1-12.0); Hematocrit 43.5 % (42.0-52.0); Hemoglobin 14.6 g/dL (14.1-18.0); Lymphocytes # 1.7 K/mm3 (0.7-4.5); Lymphocytes % 31.5 % (10-50); Mean Corpuscular HGB Conc 33.6 g/dL (31.8-35.4); Mean Corpuscular Volume 92.3 fl (80-94); Mean Platelet Volume 8.4 fl (7.4-10.4); Monocytes # 0.5 K/mm3 (0.1-1.0); Monocytes % 8.9 % (1.7-9.3); Neutrophils % 57.2 % (37.0-80.0); Platelet Count 285 K/mm3 (142-424); Red Blood Count 4.71 M/mm3 (4.60-6.20); Red Cell Distribution Width 13.4 % (11.5-17.5); White Blood Count 5.3 K/mm3 (4.8-10.8)
[2021-06-19 00:51] LABS: Alanine Aminotransferase 53 U/L (12-78); Albumin Level 4.3 g/dl (3.5-5.0); Alkaline Phosphatase 72 U/L (38-126); Anion Gap 13.2 mEq/L (5-15); Aspartate Amino Transferase 45 U/L (17-59); Bilirubin,Direct 0.3 mg/dl (0.0-0.4); Bilirubin,Total 0.3 mg/dl (0.2-1.3); Blood Urea Nitrogen 11 mg/dl (9-20); Calcium 8.9 mg/dl (8.4-10.2); Carbon Dioxide 28 mmol/L (22.0-30.0); Chloride 100 mmol/L (98-107); Creatinine Clearance Estimated 141 mL/min (50-200); Estimated Glomerular Filt Rate 93 ml/min (>60); GFR (African American) 112 ML/MIN (>60); Glucose 110 mg/dl (74-100); Potassium 4.2 mmoL/L (3.5-5.1); Sodium 137 mmol/L (136-145); Total Protein,Serum 7.9 g/dl (6.3-8.2)
[2021-06-19 00:56] LABS: C-Reactive Protein 19.5 mg/L (0-4)
[2021-06-19 01:05] LABS: Troponin I 0.02 ng/ml (0.00-0.034)
--- NOTE | 2021-06-19 01:05 | HMH.EDSOB ---
ED Disposition Clinical Impression: COVID-19 Disposition: Home, Self-Care Condition on Discharge: Good Instructions: DI for COVID-19 (Suspected or Confirmed ) Additional Instructions: fluids and call pcp in am for follow up Prescriptions: dexAMETHasone [Decadron] 6 mg PO DAILY #7 tab Transmission Status: Pending to [facility] # Azithromycin [Zithromax 250mg tab] 250 mg PO DIRECTED #6 tab Transmission Status: Pending to [facility] #[id number] Referrals: Slim Yeun MD [Primary Care Provider] - - Critical Care Critical Care Time: No Attestation: On 06/18/21, the high probability of a clinically significant, sudden or life threatening deterioration of the following system(s) required my full and direct attention, intervention and personal management. The time I documented below is in addition to time spent performing reported procedures but includes the following listed in this critical care notation. Medical Decision Making - Medical Records Medical records reviewed: Yes: I reviewed the patient's medical records. - Jon Inquiry Pt receiving controlled substance: No Vital Signs: 06/18/21 23:58 Temperature 99.1 F Temperature Source Oral Pulse Rate [Left] 63 Respiratory Rate 18 Blood Pressure [Right Arm] 112/78 Blood Pressure Mean [Right Arm] 89 02 Sat by Pulse Oximetry 97 Oxygen Delivery Method Room Air - Lab Data Lab results reviewed: Yes: I reviewed the patient's lab results. Lab Results 06/19/21 00:31: WBC 5.3, RBC 4.71, Hgb 14.6, Hct 43.5, MCV 92.3, MCH 31.0, MCHC 33.6, RDW 13.4, Plt Count 285, MPV 8.4, Neut % (Auto) 57.2, Lymph % (Auto) 31.5, [place] % (Auto) 8.9, Eos % (Auto) 1.1, Baso % (Auto) 1.3, Neut # (Auto) 3.0, Lymph # (Auto) 1.7, [place] # (Auto) 0.5, Eos # (Auto) 0.1, Baso # (Auto) 0.1, ESR 47 H 06/19/21 00:31: Sodium 137, Potassium 4.2, Chloride 100, Carbon Dioxide 28, Anion Gap 13.2, BUN 11, Creatinine 1.00, Estimated Creat Clear 141, Estimated GFR 93, Est GFR ( Amer) 112, Glucose 110 H, Calcium 8.9, Troponin I 0.02, C-Reactive Protein 19.5 H, Procalcitonin 0.110 06/19/21 00:31: Total Bilirubin 0.3, Direct Bilirubin 0.3, Conjugated Bilirubin 0.0, Indirect Bilirubin 0.0, Unconjugated Bilirubin 0.0, AST 45, ALT 53, Alkaline Phosphatase 72, Total Protein 7.9, Albumin 4.3 06/19/21 00:31: SARS-CoV-2 (PCR) Detected A, Influenza A Untype (PCR) Not detected, Influenza Type B (PCR) Not detected Result diagrams: 06/19/21 00:31 06/19/21 00:31 Orders (Tests/Meds): ED MEDICATIONS Generic Name Dose Route Start Last Admin Trade Name Freq PRN Reason Stop Dose Admin Lactated Ringer's 1,000 mls @ 999 mls/hr 06/19/21 00:15 06/19/21 00:38 Lactated Ringer's 1000 Ml Bag IV 06/19/21 01:15 999 mls/hr .Q1H1M KESHIA Administration Azithromycin 500 mg/ Sodium 250 mls @ 250 mls/hr 06/19/21 01:15 Chloride IV 07/03/21 01:14 Q24H KESHIA Ceftriaxone Sodium 1 gm/ 50 mls @ 100 mls/hr 06/19/21 01:15 Sodium Chloride IV 07/03/21 01:14 Q24H KESHIA Sodium Chloride 1,000 mls @ 999 mls/hr 06/19/21 01:15 Sod Chlor 0.9% 1000ml Bag IV 06/19/21 02:15 .Q1H1M KESHIA Discontinued Medications Generic Name Dose Route Start Last Admin Trade Name Freq PRN Reason Stop Dose Admin Dexamethasone Sodium Phosphate 10 mg 06/19/21 00:18 06/19/21 00:38 Dexamethasone 4mg/Ml 5ml Mdv IV 06/19/21 00:19 10 mg ONCE ONE Administration Ketorolac Tromethamine 30 mg 06/19/21 00:15 06/19/21 00:38 Ketorolac 30mg/Ml Vial IV 06/19/21 00:16 30 mg ONCE ONE Administration ORDERS Category Date Time Status Chest XR 2 view (NOT portable) [XR chest 2V] Stat Exams 06/19/21 00:14 Taken Troponin I Q3H Lab 06/19/21 03:30 Ordered Troponin I Q3H Lab 06/19/21 06:30 Ordered - Radiology Data #1 Image(s): Chest Image Reviewed: Yes I reviewed the patient's radiology image Preliminary Findings: Abnormal Medical Decision Narrative: pt wit
[2021-06-19 01:06] LABS: Erythrocyte Sedimentation Rate 47 mm/hr (0-15)
[2021-06-19 01:07] LABS: Influenza A, PCR Not Detected (NotDetected); Influenza B, PCR Not Detected (NotDetected)
[2021-06-19 01:31] VITALS: BP 110/67; PULSE 93; RESP 20; O2SAT 95
[2021-06-19 01:31] LABS: Coronavirus 19, PCR Detected (NotDetected)
[2021-06-19 02:22] VITALS: BP 110/54; PULSE 93; RESP 20; TEMP 37.3; O2SAT 97
== END 2021-06-19 02:31 | disposition home or self-care (01) ==
PROVIDERS: Emergency Provider Emergency Medicine; PCP Family Medicine
DX: U07.1 COVID-19 (principal)
CPT/HCPCS: 71046; 80048; 80076; 84145; 84484; 85025; 85651; 86140; 93005; 96365; 96366; 96375; 99284; C9803; J0456; U0003; U0005

== ENCOUNTER → 2021-09-14 14:01 | Outpatient (CLI) | payer OTHER, SELFPAY | PROVIDERS: Visit Provider Nurse Practitioner | DX: Z20.822 Contact with and (suspected) exposure to COVID-19 (principal) | CPT/HCPCS: C9803; U0003; U0005 ==

== ENCOUNTER 2022-01-06 01:00 | Emergency (ER) | payer OTHER, SELFPAY ==
[2022-01-06 01:00] VITALS: BP 117/68; PULSE 121; RESP 19; TEMP 37.3; O2SAT 99; BMI 42.5
--- NOTE | 2022-01-06 01:09 | ECG_ITS ---
APPROVED REPORT Exam: Resting ECG HR:120 bpm ECG Measurements Heart Rate [address] 174 P 32 QRSd 94 QRS 99 QT 294 T 35 QTc 365 Conclusion SINUS TACHYCARDIA BORDERLINE RIGHT AXIS DEVIATION [QRS AXIS > 90] ABNORMAL RHYTHM ECG UNCONFIRMED REPORT Electronically signed by : Slim Smith MD 01/07/2022 20:14:20
--- NOTE | 2022-01-06 01:26 | XR_ITS ---
PROCEDURE INFORMATION: Exam: XR Chest Exam date and time: 01/06/2022 1:34 AM Age: 26 years old Clinical indication: Fever TECHNIQUE: Imaging protocol: XR of the chest. Views: 2 views. COMPARISON: CR XR CHEST 2V 06/19/2021 12:27 AM FINDINGS: Lungs: Unremarkable. No consolidation. Pleural spaces: Unremarkable. No pleural effusion. No pneumothorax. Heart/Mediastinum: Unremarkable. No cardiomegaly. Bones/joints: Unremarkable. IMPRESSION: No acute cardiopulmonary abnormality.
--- NOTE | 2022-01-06 01:28 | HMH.EDDIZZ ---
ED Disposition Clinical Impression: Sinusitis Qualifiers: Sinusitis location: unspecified location Chronicity: acute Recurrence: not specified as recurrent Qualified Code(s): J01.90 - Acute sinusitis, unspecified Disposition: Home, Self-Care Condition on Discharge: Good Instructions: DI for Sinusitis Additional Instructions: fluids and use meds as directed Prescriptions: cephALEXin [cephALEXin 500mg capsule*] 500 mg PO TID #30 cap Transmission Status: Pending to [facility] # [id number] [Prednisone 20mg Tab] 20 mg PO BID #10 tab Transmission Status: Pending to [facility] # Referrals: Edwige Valdes APRN [Primary Care Provider] - - Critical Care Critical Care Time: No Attestation: On 01/06/22, the high probability of a clinically significant, sudden or life threatening deterioration of the following system(s) required my full and direct attention, intervention and personal management. The time I documented below is in addition to time spent performing reported procedures but includes the following listed in this critical care notation. Medical Decision Making - Medical Records Medical records reviewed: Yes: I reviewed the patient's medical records. - Jon Inquiry Pt receiving controlled substance: No Vital Signs: 01/06/22 01:00 Temperature 99.1 F Temperature Source Oral Pulse Rate [Right] 121 H Respiratory Rate 19 Blood Pressure [Right Arm] 117/68 Blood Pressure Mean [Right Arm] 84 Blood Pressure Source [Right Arm] Automatic Cuff 02 Sat by Pulse Oximetry 99 Oxygen Delivery Method Room Air - Lab Data Lab results reviewed: Yes: I reviewed the patient's lab results. Lab Results 01/06/22 01:15: ESR 22 H 01/06/22 01:15: Troponin I < 0.01, C-Reactive Protein 44.1 H, Procalcitonin 0.085 01/06/22 01:15: WBC 12.9 H, RBC 5.03, Hgb 15.7, Hct 46.4, MCV 92.2, MCH 31.2, MCHC 33.8, RDW 13.1, Plt Count 363, MPV 8.2, Neut % (Auto) 73.7, Lymph % (Auto) 15.9, [place] % (Auto) 7.1, Eos % (Auto) 1.1, Baso % (Auto) 2.2 H, Neut # (Auto) 9.5 H, Lymph # (Auto) 2.0, [place] # (Auto) 0.9, Eos # (Auto) 0.1, Baso # (Auto) 0.3 H 01/06/22 01:15: Sodium 139, Potassium 4.0, Chloride 97 L, Carbon Dioxide 32 H, Anion Gap 14.0, BUN 11, Creatinine 1.00, Estimated Creat Clear 140, Estimated GFR 92, Est GFR ( Amer) 111, Glucose 149 H, Calcium 10.0, Total Bilirubin 0.7, AST 35, ALT 56, Alkaline Phosphatase 75, Total Protein 8.8 H, Albumin 4.8, Globulin 4.0 H, Albumin/Globulin Ratio 1.2 01/06/22 01:15: SARS-CoV-2 (PCR) Not detected, Influenza A Untype (PCR) Not detected, Influenza Type B (PCR) Not detected Result diagrams: 01/06/22 01:15 01/06/22 01:15 Orders (Tests/Meds): ED MEDICATIONS Generic Name Dose Route Start Last Admin Trade Name Freq PRN Reason Stop Dose Admin Lactated Ringer's 1,000 mls @ 999 mls/hr 01/06/22 01:30 01/06/22 01:38 Lactated Ringer's 1000 Ml Bag IV 01/06/22 02:30 999 mls/hr .Q1H1M KESHIA Administration Ceftriaxone Sodium 1 gm/ 50 mls @ 100 mls/hr 01/06/22 01:45 01/06/22 01:38 Sodium Chloride IV 01/20/22 01:44 100 mls/hr Q24H KESHIA Administration Discontinued Medications Generic Name Dose Route Start Last Admin Trade Name Freq PRN Reason Stop Dose Admin Ketorolac Tromethamine 30 mg 01/06/22 02:15 01/06/22 03:40 Ketorolac 30mg/Ml Vial IV 01/06/22 02:16 30 mg ONCE ONE Administration Methylprednisolone Sodium Succinate 125 mg 01/06/22 01:26 01/06/22 01:37 Methylprednisolone Sod Succ 125mg Vial IV 01/06/22 01:27 125 mg ONCE ONE Administration ORDERS Category Date Time Status CT head/brain wo con Stat Cat Scan 01/06/22 01:26 Stop Req Troponin I Q3H Lab 01/06/22 04:30 Ordered Troponin I Q3H Lab 01/06/22 07:30 Ordered Urinalysis and Microscopic Stat Lab 01/06/22 01:26 Ordered - Radiology Data #1 Image(s): Chest Image Reviewed: Yes I have reviewed radiologist's interpretation Preliminary Findings: Nor
[2022-01-06 01:36] LABS: Basophils # 0.3 K/mm3 (0-0.2); Basophils % 2.2 % (0.1-2.0); Eosinophils # 0.1 K/mm3 (0.0-0.4); Eosinophils % 1.1 % (0.1-12.0); Hematocrit 46.4 % (42.0-52.0); Hemoglobin 15.7 g/dL (14.1-18.0); Lymphocytes % 15.9 % (10-50); Mean Corpuscular HGB Conc 33.8 g/dL (31.8-35.4); Mean Corpuscular Hemoglobin 31.2 pg (27.0-31.2); Mean Corpuscular Volume 92.2 fl (80-94); Mean Platelet Volume 8.2 fl (7.4-10.4); Monocytes # 0.9 K/mm3 (0.1-1.0); Monocytes % 7.1 % (1.7-9.3); Neutrophils # 9.5 K/mm3 (1.8-7.8); Neutrophils % 73.7 % (37.0-80.0); Platelet Count 363 K/mm3 (142-424); Red Blood Count 5.03 M/mm3 (4.60-6.20); Red Cell Distribution Width 13.1 % (11.5-17.5); White Blood Count 12.9 K/mm3 (4.8-10.8)
[2022-01-06 01:40] LABS: Alanine Aminotransferase 56 U/L (12-78); Albumin Level 4.8 g/dl (3.5-5.0); Albumin/Globulin Ratio 1.2 (1.1-1.8); Alkaline Phosphatase 75 U/L (38-126); Aspartate Amino Transferase 35 U/L (17-59); Bilirubin,Total 0.7 mg/dl (0.2-1.3); Blood Urea Nitrogen 11 mg/dl (9-20); Carbon Dioxide 32 mmol/L (22.0-30.0); Chloride 97 mmol/L (98-107); Creatinine Clearance Estimated 140 mL/min (50-200); Estimated Glomerular Filt Rate 92 ml/min (>60); GFR (African American) 111 ML/MIN (>60); Glucose 149 mg/dl (74-100); Sodium 139 mmol/L (136-145); Total Protein,Serum 8.8 g/dl (6.3-8.2)
[2022-01-06 01:45] LABS: C-Reactive Protein 44.1 mg/L (0-4)
[2022-01-06 01:54] LABS: Troponin I < 0.01 ng/ml (0.00-0.034)
[2022-01-06 01:58] LABS: Procalcitonin 0.085 ng/mL (0.0-2.0)
[2022-01-06 01:59] LABS: Erythrocyte Sedimentation Rate 22 mm/hr (0-15)
[2022-01-06 03:31] LABS: Coronavirus 19, PCR Not Detected (NotDetected); Influenza A, PCR Not Detected (NotDetected); Influenza B, PCR Not Detected (NotDetected)
[2022-01-06 03:45] VITALS: BP 124/78; PULSE 99; RESP 19; TEMP 36.7; O2SAT 98
== END 2022-01-06 03:49 | disposition home or self-care (01) ==
PROVIDERS: Emergency Provider Emergency Medicine; PCP Nurse Practitioner Family
DX: J01.90 Acute sinusitis, unspecified (principal); R42 Dizziness and giddiness; J45.909 Unspecified asthma, uncomplicated; Z20.822 Contact with and (suspected) exposure to COVID-19; Z79.52 Long term (current) use of systemic steroids
CPT/HCPCS: 71046; 80053; 84145; 84484; 85025; 85651; 86140; 93005; 96374; 96375; 99285; C9803; J0696; U0003; U0005

== ENCOUNTER → 2022-07-09 15:46 | Outpatient (CLI) | payer OTHER, SELFPAY ==
[2022-07-09 18:17] LABS: Alanine Aminotransferase 63 U/L (12-78); Albumin Level 4.6 g/dl (3.5-5.0); Albumin/Globulin Ratio 1.5 (1.1-1.8); Alkaline Phosphatase 91 U/L (38-126); Anion Gap 14.6 mEq/L (5-15); Aspartate Amino Transferase 38 U/L (17-59); Bilirubin,Total 0.5 mg/dl (0.2-1.3); Blood Urea Nitrogen 10 mg/dl (9-20); Calcium 9.3 mg/dl (8.4-10.2); Carbon Dioxide 33 mmol/L (22.0-30.0); Chloride 95 mmol/L (98-107); Chol/HDL Ratio 5.3 (1-3.5); Cholesterol 154 mg/dl (140-200); Estimated Glomerular Filt Rate 119 ml/min (>60); GFR (African American) 144 ML/MIN (>60); Globulin 3.1 g/dL (1.3-3.2); Glucose 135 mg/dl (74-100); HDL Cholesterol 29 mg/dl (40-60); Potassium 4.6 mmoL/L (3.5-5.1); Sodium 138 mmol/L (136-145); Total Protein,Serum 7.7 g/dl (6.3-8.2); Triglycerides 220 mg/dl (30-150); VLDL Cholesterol 44 mg/dL (0-40)
[2022-07-09 18:27] LABS: Hemoglobin A1C 7.9 % (4.0-6.0)
[2022-07-09 18:34] LABS: Direct LDL Cholesterol 89.78 mg/dL (100-129)
[2022-07-09 18:47] LABS: Thyroid Stimulating Hormone 2.14 uIU/mL (0.465-4.68)
== END ==
PROVIDERS: PCP Nurse Practitioner Family; Visit Provider Nurse Practitioner Family
DX: R63.5 Abnormal weight gain (principal); Z68.42 Body mass index [BMI] 45.0-49.9, adult
CPT/HCPCS: 36415; 80053; 80061; 83036; 84443

== ENCOUNTER → 2022-08-24 15:30 | Outpatient (CLI) | payer OTHER, SELFPAY | PROVIDERS: PCP Nurse Practitioner Family; Visit Provider Nurse Practitioner Family | DX: R06.81 Apnea, not elsewhere classified (principal); R06.83 Snoring; E66.9 Obesity, unspecified; Z68.41 Body mass index [BMI] 40.0-44.9, adult | CPT/HCPCS: G0399 ==

== ENCOUNTER → 2023-05-16 14:31 | Outpatient (CLI) | payer OTHER, SELFPAY | PROVIDERS: PCP Internal Medicine Adolescent Medicine; Visit Provider Internal Medicine Adolescent Medicine | DX: R00.2 Palpitations (principal); Q24.9 Congenital malformation of heart, unspecified | CPT/HCPCS: 93225; 93226 ==

== ENCOUNTER → 2023-06-04 14:27 | Outpatient (CLI) | payer OTHER, SELFPAY ==
--- NOTE | 2023-06-04 | CA_ITS ---
APPROVED REPORT EXAM: Comprehensive 2D, Doppler, and color-flow Echocardiogram & bubble study Engineering Intern: Reema Mederos RCS, RVS Ht: 6 ft 4 in Wt: 350lbs BSA: 2.81 BP: 117/68 mmHg Indications: Obesity, [place], SOA, asthma, Hx-PDA Echo Enhancing Agent Indication: Rule out Shunt Agent(s) / Amount(s) Used: Agitated Saline 40 cc 2D Dimensions Aortic Root 3.44 cm Left Atrium 4.04 cm LVOT 2.12 cm (M/F) 1.5-2.5 Ascending Aorta 2.97 cm M-Mode Dimensions RVDd 2.97 cm (0.9-2.6) LA Diam 4.14 cm (1.9-4.0) LVDd 5.45 cm (3.5-5.7) Ao Diam 3.76 cm (2.0-3.7) LVDs 3.66 cm (3.5-5.7) IVSd 1.14 cm (0.6-1.1) PWd 1.30 cm (0.6-1.1) EF (Teich) 60.80% EPSs 0.91 cm FS 32.80% EDV (Teich) 144.40 mL TAPSE 2.11 (<1.7) ESV (Teich) 56.60 mL LV Diastology E Decel Time 150.00 (160-240 msec) E/A Ratio 1.09 MED E' 8.10 (< 7 cm/sec) MED A' 12.10 cm/s E'/MED E' Ratio 8.01 (>14) LAT E' 13.70 (<10 cm/sec) LAT A' 10.00 cm/s E/LAT E' Ratio 4.74 (>14) Aortic Valve LVOT Max 107.00 (70-110 cm/s) LVOT VTI 19.84 cm AoV Peak Pasquale. 128.00 (50-130 cm/s) AO Peak GR. 6.60 mmHg AO Mean GR. 3.30 (<5 mmHg) AO VTI 23.24 (18-25 cm) HENRY (VTI) 3.01 (2.5-4.5 cm2) Mitral Valve MV E Max Pasquale. 65.00 (40-130 cm/s) MV A Velocity 59.00 (40-130 cm/s) E/A Ratio 1.09 MV Decel. Time 150.00 (160-240 ms) MV PHT 44.00 ms Pulmonary Valve PV Peak Velocity 113.00 (50-150 cm/s) Left Ventricle The left ventricle is normal size. The left ventricular systolic function is normal. The left ventricular ejection fraction is within the normal range. There is increased LV wall thickness. There is normal LV segmental wall motion. The left ventricular diastolic function is normal. LVEF is 55%. Right Ventricle The right ventricle is mildly dilated. The right ventricular systolic function is normal. Atria The left atrium size is normal. The right atrium size is normal. There is no Doppler evidence of interatrial shunt. Saline bubble contrast intravenous injection does not demonstrate PFO. Aortic Valve The aortic valve opens well. There is no aortic valvular stenosis. No aortic regurgitation is present. Mitral Valve The mitral valve is normal in structure. No evidence of mitral valve stenosis. There is no mitral valve regurgitation noted. Tricuspid Valve The tricuspid valve leaflets are thin and pliable. Trace tricuspid regurgitation. There is insufficient TR jet to estimate RVSP. Pulmonic Valve The pulmonary valve is normal in structure. Trace pulmonic regurgitation. Great Vessels The aortic root is normal in size. The ascending aorta is normal in size. The IVC is not well visualized. Pericardium There is no pericardial effusion. Other Information Study Quality: Fair Conclusion Normal biventricular systolic function. Mild RV dilation. No significant valvular stenosis or regurgitation. Agitated saline administration at rest and with Valsalva does not demonstrate PFO. However, note that TTE does not fully rule out PFO if clinical concern is present in the setting of mild RV dilation. Further evaluation with ERIC is recommended, if clinically applicable. Electronically signed by : Nadia Braxton MD 06/07/2023 16:34:44
== END ==
PROVIDERS: PCP Internal Medicine Adolescent Medicine; Visit Provider Internal Medicine Adolescent Medicine
DX: R00.2 Palpitations (principal); Q24.9 Congenital malformation of heart, unspecified
CPT/HCPCS: 93306

== ENCOUNTER 2023-11-04 10:37 | Outpatient (CLI) | payer OTHER, SELFPAY ==
--- NOTE | 2023-11-04 10:40 | US_ITS ---
FINAL REPORT CLINICAL HISTORY: PILONIDAL CYST-- pt has sacral dimple COMPARISON: None FINDINGS: Sonographic images were obtained of the spinal canal and its contents. There is a small hypoechoic abnormality within the subcutaneous tissues deep to the sacral dimple measuring 4 x 6 mm. This outpouching is toward the skin surface but fluid-filled tract does not reach the skin surface. IMPRESSION: Small hypoechoic abnormality deep to the sacral dimple which could represent small subcutaneous cyst. Consider follow-up. Reviewed, Interpreted and Dictated by Ann Marie Miguel MD Transcribed by Kay Michele Authenticated and [facility]
== END 2023-11-04 23:59 ==
LOC: RAD 10:37
PROVIDERS: PCP Internal Medicine Adolescent Medicine; Visit Provider Internal Medicine Adolescent Medicine
DX: L05.91 Pilonidal cyst without abscess (principal)
CPT/HCPCS: 76800

== ENCOUNTER 2023-12-10 16:57 | Emergency (ER) | payer OTHER, SELFPAY ==
[2023-12-10 16:58] VITALS: BP 149/76; PULSE 112; RESP 21; TEMP 38.6; O2SAT 96; BMI 42.3
--- NOTE | 2023-12-10 17:30 | ED_ITS ---
Discharge Plan Disposition Patient Disposition: Home, Self-Care Condition: Good Prescriptions Prescriptions: New ondansetron HCl 4 mg tablet 4 mg PO Q8H PRN (Reason: nausea and vomiting) 4 Days Qty: 12 0RF No Action prednisone 20 MG tablet 20 mg PO BID Qty: 10 0RF cephalexin 500 MG capsule 500 mg PO TID Qty: 30 0RF Referrals Follow up/Referrals: Slim Smith MD [Primary Care Provider] - See instructions Activity Restrictions/Add. Instructions Additional Instructions/Restrictions: You were evaluated in the emergency department today. Please lemon picker your prescription and take as needed for nausea and vomiting. Please follow-up closely with your primary care provider. Hydrate. Eat a bland diet until your symptoms have resolved. Return to the emergency department for new or worsening symptoms. Clinical Impressions Clinical Impression: Gastroenteritis, Acute viral syndrome Stand Alone Forms Stand Alone Forms: Work/School Release Instructions Patient Instructions: DI for Diarrhea and Traveler's Diarrhea -- Adult, DI for Viral Syndrome, DI for Nausea -- Adult Discharge ED Provider: Adeline Schulte General Adult HPI General Chief complaint: Nausea/Vomiting/Diarrhea Stated complaint: fever, vomiting Time Seen by Provider: 12/10/23 17:11 Mode of Arrival: Family Vehicle Source of Information: Patient Limitations: No Limitations Description of Symptoms (Recalled from ER Triage Doc. by RN): Pt c/o SOA, fever, chills, and nausea with vomiting that began when he woke up today at 1630. He took 1 dayquil prior to arrival but reports I threw up right after I took it . Denies any ABD pain. States his [id number] has Flu A and he was around him recently. 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 History of Present Illness HPI narrative: This patient is a 28-year-old male with history of asthma presenting to the emergency department for evaluation with concern for fevers, cough, shortness of breath, nausea, vomiting, and bodyaches that started today. He states that he took DayQuil, but he threw up immediately after taking it. No other medications attempted at home. He notes that his [id number] has influenza A and he was around him recently. Patient states that he has a history of asthma but has not had to use an inhalers recently. No other concerns noted at this time, such as abdominal pain, change in bowel movements, or other issues Related Data Previous Rx's Medication Instructions Recorded cephalexin 500 mg capsule 500 mg PO TID #30 caps 01/06/22 prednisone 20 mg tablet 20 mg PO BID #10 tabs 01/06/22 ondansetron HCl 4 mg tablet 4 mg PO Q8H PRN nausea and 12/10/23 vomiting 4 days #12 tabs Allergies Allergy/AdvReac Type Severity Reaction Status Date / Time No Known Allergies [facility]ergy Verified 07/05/21 14:25 [facility] Disclaimer: The information contained in this section may have been updated after the patient was seen, as this information can be updated by other users. Social History Smoking Status: Unknown if ever smoked second hand exposure: No alcohol intake: never current occupational status: employed Travel in the last 8 weeks: None household members: spouse and children housing: house current occupational exposures/hazards: No ROS Obtained: Yes All systems reviewed & no additional complaints except as documented Physical Exam General General appearance: alert, in no apparent distress and obese Head Head exam: atraumatic and normocephalic Eye Eye exam: Present normal appearance, PERRL and EOMI ENT ENT exam: Present normal exam, normal oropharynx, mucous membranes moist and normal external ear exam Neck Neck exam: Present normal inspection, full ROM and trachea midline; Absent tenderness Chest Chest inspection: Present normal inspection and symmetric chest wall rise; Absent tenderness Respiratory Respiratory exam: Present normal lung sounds bilaterally; Absent respiratory distress, wheezes, stridor or accessory muscle use Cardiovascular Cardiovascular exam: Present regular rate and normal rhythm Abdominal Exam Abdominal exam: Present soft; Absent distention, tenderness or guarding Extremities Exam Extremities exam: Present normal inspection, full ROM and normal capillary refill; Absent tenderness or edema Back Exam Back exam: Present normal inspection and full ROM; Absent tenderness Neurological Exam Neurological exam: Present alert, oriented X3, CN II-XII intact and normal gait; Absent motor sensory deficit Psychiatric Psychiatric exam: Present normal affect and normal mood Skin Skin exam: Present warm and dry Medical Decision Making Medical Records Medical records reviewed: Yes I reviewed the patient's medical records. Jon Inquiry Pt receiving controlled substance: No Vital Signs: 12/10/23 16:58 12/10/23 19:08 Temperature 101.4 F H 99.0 F Temperature Source Oral Oral Pulse Rate 94 H Pulse Rate [Right] 112 H Respiratory Rate 21 20 Blood Pressure 120/68 Blood Pressure [Right Arm] 149/76 H Blood Pressure Mean [Right Arm] 100 Blood Pressure Source [Right Arm] Automatic Cuff 02 Sat by Pulse Oximetry 96 Oxygen Delivery Method Room Air Room Air Lab Data Lab results reviewed: Yes I reviewed the patient's lab results. Lab Results 12/10/23 17:11: SARS-CoV-2 (PCR) Not detected, Influenza A Untype (PCR) Not detected, Influenza Type B (PCR) Not detected Orders (Tests/Meds): ED MEDICATIONS Discontinued Medications Generic Name Dose Route Start Last Admin Trade Name Freq PRN Reason Stop Dose Admin Acetaminophen 1,000 mg 12/10/23 17:22 12/10/23 17:35 Acetaminophen 500mg Tab PO 12/10/23 17:23 1,000 mg ONCE ONE Administration Lactated Ringer's 1,000 mls @ 999 mls/hr 12/10/23 17:22 12/10/23 17:40 Lactated Ringer's 1000 Ml Bag IV 12/10/23 18:22 999 mls/hr .Q1H1M ONE Administration Ketorolac Tromethamine 15 mg 12/10/23 17:22 12/10/23 17:40 Ketorolac 30mg/Ml Vial IV 12/10/23 17:23 15 mg ONCE ONE Administration Ondansetron HCl 4 mg 12/10/23 17:22 12/10/23 17:35 Ondansetron 4mg/2ml Vial IV 12/10/23 17:23 4 mg ONCE ONE Administration ORDERS Category Date Time Status Rapid PCR Covid and Flu A/B Stat Lab 12/10/23 17:11 Completed Medical Decision Narrative: In summary, this patient is a 28-year-old male presenting to the Emergency Department for evaluation of fevers, chills, cough, congestion, nausea, and vomiting. Differential diagnoses considered include but are not limited to viral syndrome, dehydration, bacterial gastroenteritis, pneumonia. Ruling out the most morbid conditions drove assessment. On exam, the patient is well-appearing. He is febrile. Cardiopulmonary exam is normal, and abdominal exam is benign with no focal tenderness or localizable pain. at this time, feel he likely has a viral syndrome causing his infectious symptoms. Viral swab was sent, and the patient was given a bolus of IV fluids as well as IV Toradol, oral Tylenol, and IV Zofran for symptomatic improvement. On reassessment, the patient is resting comfortably with continued benign exam. He is able to tolerate oral intake. Given this, feel that he is appropriate for discharge with instructions for supportive management of likely infectious gastroenteritis. Strict return precautions were given, and the patient was discharged after all questions were answered. Critical Care Critical Care Time Critical Care Time: No
[2023-12-10] MEDS: ONDANSETRON 4MG/2ML VIAL 4 MG IV (17:35)
[2023-12-10] MEDS: ACETAMINOPHEN 500MG TAB 1000 MG PO (17:35)
[2023-12-10] MEDS: KETOROLAC 30MG/ML VIAL 15 MG IV (17:40)
[2023-12-10] MEDS: LACTATED RINGERS 1000ML 1,000 ML 999 ML IV (17:40)
[2023-12-10 17:49] LABS: Coronavirus 19, PCR Not Detected (NotDetected); Influenza A, PCR Not Detected (NotDetected); Influenza B, PCR Not Detected (NotDetected)
[2023-12-10 19:08] VITALS: BP 120/68; PULSE 94; RESP 20; TEMP 37.2; O2SAT 99
== END 2023-12-10 19:09 | disposition home or self-care (01) ==
PROVIDERS: Emergency Provider Emergency Medicine; PCP Internal Medicine Adolescent Medicine
DX: A08.4 Viral intestinal infection, unspecified (principal); R11.2 Nausea with vomiting, unspecified; R50.9 Fever, unspecified; R06.02 Shortness of breath; R05.9 Cough, unspecified; J45.909 Unspecified asthma, uncomplicated
CPT/HCPCS: 87636; 96361; 96374; 96375; 99284; J2405

== ENCOUNTER 2024-04-16 21:00 | Emergency (ER) | payer OTHER, SELFPAY ==
[2024-04-16 21:00] VITALS: BP 128/77; PULSE 68; RESP 20; TEMP 36.3; O2SAT 97; BMI 38.9
[2024-04-16] MEDS: ALBUTEROL-HFA 90MCG/PUFF INHALER 8GM 2 PUFF IH (21:19)
[2024-04-16] MEDS: predniSONE 20MG TAB 40 MG PO (21:20)
[2024-04-16 21:31] VITALS: BP 128/77; PULSE 85; RESP 16; TEMP 36.3; O2SAT 100
--- NOTE | 2024-04-18 15:30 | ED_ITS ---
Discharge Plan Disposition Patient Disposition: Home, Self-Care Condition: Good Prescriptions Prescriptions: New prednisone 20 mg tablet 40 mg PO DAILY 5 Days Qty: 10 0RF No Action prednisone 20 MG tablet 20 mg PO BID Qty: 10 0RF cephalexin 500 MG capsule 500 mg PO TID Qty: 30 0RF ondansetron HCl 4 mg tablet 4 mg PO Q8H PRN (Reason: nausea and vomiting) 4 Days Qty: 12 0RF Referrals Follow up/Referrals: Slim Smith MD [Primary Care Provider] - See instructions Activity Restrictions/Add. Instructions Additional Instructions/Restrictions: Please use the inhaler provided to you as needed. 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 Return to the emergency department for new or worsening symptoms. Clinical Impressions Clinical Impression: Asthma with acute exacerbation Qualifiers: Asthma severity: unspecified severity Asthma persistence: unspecified Qualified Code(s): J45.901 - Unspecified asthma with (acute) exacerbation Stand Alone Forms Stand Alone Forms: Work/School Release Instructions Patient Instructions: Asthma -- Adult Print Language Print Language: Tristanian Discharge ED Provider: Adeline Schulte General Adult HPI General Chief complaint: Asthma Stated complaint: SOA Time Seen by Provider: 04/16/24 21:04 Mode of Arrival: Ambulatory Source of Information: Patient Limitations: No Limitations Description of Symptoms (Recalled from ER Triage Doc. by RN): pt reports he has asthma and has had 4 asthma attacks this week but is now out of his inhaler. pt reports no recent illnesses or any other symptoms History of Present Illness HPI narrative: This patient is a 28-year-old male who reports a history of asthma presenting to the emergency department for evaluation with concern because he ran out of his inhaler. He states that he has been having multiple asthma attacks over the last week because he is out of his inhaler. He denies any recent use of steroids or other concerns. He states he is awaiting outpatient follow-up for pulmonary function testing, but he has not been able to attend to that because he works third shift. No other concerns noted. Related Data Previous Rx's ?Medication ?Instructions ?Recorded cephalexin 500 mg capsule 500 mg PO TID #30 caps 01/06/22 prednisone 20 mg tablet 20 mg PO BID #10 tabs 01/06/22 ondansetron HCl 4 mg tablet 4 mg PO Q8H PRN nausea and 12/10/23 vomiting 4 days #12 tabs prednisone 20 mg tablet 40 mg (2 x 20 mg) PO DAILY 5 days 04/16/24 #10 tabs Allergies Allergy/AdvReac Type Severity Reaction Status Date / Time No Known Allergies Allergy Verified 07/05/21 14:25 [facility] Disclaimer: The information contained in this section may have been updated after the patient was seen, as this information can be updated by other users. Social History Smoking Status: Never smoker second hand exposure: No alcohol intake: never current occupational status: employed Travel in the last 8 weeks: None household members: spouse and children housing: house current occupational exposures/hazards: No ROS Obtained: Yes All systems reviewed & no additional complaints except as documented Physical Exam General General appearance: alert and in no apparent distress Head Head exam: atraumatic and normocephalic Eye Eye exam: Present normal appearance, PERRL and EOMI ENT ENT exam: Present normal exam, normal oropharynx, mucous membranes moist and normal external ear exam Neck Neck exam: Present normal inspection, full ROM and trachea midline; Absent tenderness Chest Chest inspection: Present normal inspection and symmetric chest wall rise; Absent tenderness Respiratory Respiratory exam: Present normal lung sounds bilaterally; Absent respiratory distress, wheezes, stridor or accessory muscle use Cardiovascular Cardiovascular exam: Present regular rate and normal rhythm Abdominal Exam Abdominal exam: Present soft; Absent distention, tenderness or guarding Extremities Exam Extremities exam: Present normal inspection, full ROM and normal capillary refill; Absent tenderness or edema Back Exam Back exam: Present normal inspection and full ROM; Absent tenderness Neurological Exam Neurological exam: Present alert, oriented X3, CN II-XII intact and normal gait; Absent motor sensory deficit Psychiatric Psychiatric exam: Present normal affect and normal mood Skin Skin exam: Present warm and dry Medical Decision Making Medical Records Medical records reviewed: Yes I reviewed the patient's medical records. Jon Inquiry Pt receiving controlled substance: No Vital Signs: 04/16/24 21:00 04/16/24 21:31 Temperature 97.3 F L 97.3 F L Temperature Source Oral Oral Pulse Rate 85 Pulse Rate [Right] 68 Respiratory Rate 20 16 Blood Pressure 128/77 Blood Pressure [Right Arm] 128/77 Blood Pressure Mean [Right Arm] 94 02 Sat by Pulse Oximetry 97 Oxygen Delivery Method Room Air Room Air Lab Data Lab results reviewed: Yes I reviewed the patient's lab results. Orders (Tests/Meds): ED MEDICATIONS Discontinued Medications Generic Name Dose Route Start Last Admin Trade Name Leonidas PRN Reason Stop Dose Admin Albuterol Sulfate 2 puff 04/16/24 21:14 04/16/24 21:19 Albuterol-Hfa 90mcg/Puff Inhaler 8gm IH 04/16/24 21:15 2 puff ONCE ONE Administration Miscellaneous 1 unit 04/16/24 21:14 04/16/24 21:20 Aerochamber/Optihaler MC 04/16/24 21:15 Not Given ONCE ONE Prednisone 40 mg 04/16/24 21:14 04/16/24 21:20 Prednisone 20mg Tab PO 04/16/24 21:15 40 mg ONCE ONE Administration Medical Decision Narrative: In summary, this patient is a 28-year-old male presenting to the Emergency Department for evaluation of asthma exacerbations. Differential diagnoses considered include but are not limited to asthma exacerbation, viral syndrome, respiratory failure, pneumonia. Ruling out the most morbid conditions drove assessment. On exam, the patient is very well-appearing with no increased work of breathing. Breath sounds are clear bilaterally, and vitals are normal on cardiac telemetry. His symptoms are currently improved, but he notes multiple flareups of his asthma over the last several days. Given this, we will provide him with inhaler as well as give him prescription for a brief course of prednisone. Ultimately since he is very well-appearing with reassuring exam, I do not feel labs or imaging are indicated at this time. He was discharged with inhaler, steroids, and instructions for close follow-up as well as strict return precautions Critical Care Critical Care Time Critical Care Time: No
== END 2024-04-16 21:30 | disposition home or self-care (01) ==
PROVIDERS: Emergency Provider Emergency Medicine; PCP Internal Medicine Adolescent Medicine
DX: J45.901 Unspecified asthma with (acute) exacerbation (principal)
CPT/HCPCS: 99283

== ENCOUNTER 2024-07-28 22:11 | Emergency (ER) | payer OTHER, SELFPAY ==
[2024-07-28 22:13] VITALS: BP 156/91; PULSE 99; RESP 20; TEMP 36.7; O2SAT 93; BMI 19.5
--- NOTE | 2024-07-28 22:14 | HMH.EDGENADL ---
Discharge Plan Disposition Patient Disposition: Home, Self-Care Condition: Good Prescriptions Prescriptions: New albuterol sulfate 90 mcg/actuation HFA aerosol inhaler 1 inh inhalation Q4H PRN (Reason: shortness of breath or wheezing) Qty: 8.5 0RF prednisone 50 mg tablet 50 mg PO DAILY 5 Days Qty: 5 0RF doxycycline hyclate 100 mg capsule 100 mg PO BID 10 Days Qty: 20 0RF No Action prednisone 20 MG tablet 20 mg PO BID Qty: 10 0RF cephalexin 500 MG capsule 500 mg PO TID Qty: 30 0RF ondansetron HCl 4 mg tablet 4 mg PO Q8H PRN (Reason: nausea and vomiting) 4 Days Qty: 12 0RF prednisone 20 mg tablet 40 mg PO DAILY 5 Days Qty: 10 0RF Referrals Follow up/Referrals: Provider,Referral, MD [Referring] - See instructions Activity Restrictions/Add. Instructions Additional Instructions/Restrictions: I sent a new prescription for an inhaler to your pharmacy as well as steroids and antibiotics. Follow-up with your PCP in 48 hours for recheck or return to the ER for any worsening signs or symptoms as needed Clinical Impressions Clinical Impression: Asthma with acute exacerbation Qualifiers: Asthma severity: unspecified severity Asthma persistence: unspecified Qualified Code(s): J45.901 - Unspecified asthma with (acute) exacerbation Instructions Patient Instructions: Asthma -- Adult Print Language Print Language: Kosovan Discharge ED Provider: Obed Godoy General Adult HPI <IAN Burgess - Last Filed: 07/28/24 22:45> General Chief complaint: Asthma Stated complaint: asthma attack Time Seen by Provider: 07/28/24 22:14 History of Present Illness HPI narrative: Patient presents for evaluation of asthma attack . Patient had acute onset of shortness of breath and wheezing. He tried to use his rescue inhaler and felt woozy . He denies any fever chills chest pain hemoptysis hematochezia melena nausea vomiting diarrhea. He is a non-smoker. Related Data Previous Rx's ?Medication ?Instructions ?Recorded cephalexin 500 mg capsule 500 mg PO TID #30 caps 01/06/22 prednisone 20 mg tablet 20 mg PO BID #10 tabs 01/06/22 ondansetron HCl 4 mg tablet 4 mg PO Q8H PRN nausea and 12/10/23 vomiting 4 days #12 tabs prednisone 20 mg tablet 40 mg (2 x 20 mg) PO DAILY 5 days 04/16/24 #10 tabs albuterol sulfate 90 mcg/actuation 1 inh inhalation Q4H PRN shortness 07/28/24 aerosol inhaler of breath or wheezing #8.5 grams doxycycline hyclate 100 mg capsule 100 mg PO BID 10 days #20 caps 07/28/24 prednisone 50 mg tablet 50 mg PO DAILY 5 days #5 tabs 07/28/24 Allergies Allergy/AdvReac Type Severity Reaction Status Date / Time No Known Allergies Allergy Verified 07/05/21 14:25 [facility] <IAN Burgess - Last Filed: 07/28/24 22:45> [facility] Disclaimer: The information contained in this section may have been updated after the patient was seen, as this information can be updated by other users. Social History Smoking Status: Unknown if ever smoked second hand exposure: No alcohol intake: never current occupational status: employed Travel in the last 8 weeks: None household members: spouse and children housing: house current occupational exposures/hazards: No Other Medical History Have you received the Flu Vaccine for this season: No Have you received the Pneumonia Vaccine: No <IAN Burgess - Last Filed: 07/28/24 22:45> ROS Obtained: Yes Systems reviewed as appropriate & no additional complaints except as documented Physical Exam <IAN Burgess - Last Filed: 07/28/24 22:45> General General appearance: alert and in no apparent distress Respiratory Respiratory exam: Present wheezes (Faint end expiratory wheezing); Absent normal lung sounds bilaterally Cardiovascular Cardiovascular exam: Present regular rate Neurological Exam Neurological exam: Present alert and oriented X3 Medical Decision Making <IAN Burgess - Last Filed: 07/28/24 22:45> Medical Records Medical records reviewed: Yes I reviewed the patient's medical records. Screening: Per USPSTF and CDC recommendations, given the prevalence of disease in our region, it is our hospital?s policy to screen for HIV and viral Hepatitis for all patients aged 18 and over and those with ongoing risk factors. Jon Inquiry Pt receiving controlled substance: No Vital Signs: 07/28/24 22:13 07/28/24 22:30 07/28/24 22:37 Temperature 98.1 F Temperature Source Oral Pulse Rate 106 H 95 H Pulse Rate [Left Radial] 99 H Respiratory Rate 20 Blood Pressure 165/96 H Blood Pressure [Right Arm] 156/91 H Blood Pressure Mean [Right Arm] 112 Blood Pressure Source Blood Pressure Source [Right Arm] Automatic Cuff Blood Pressure Position Blood Pressure Position [Right Arm] Sitting 02 Sat by Pulse Oximetry 93 L 94 L Oxygen Delivery Method Room Air 07/28/24 22:37 07/28/24 22:57 07/28/24 23:00 Temperature Temperature Source Pulse Rate 97 H Pulse Rate [Left Radial] Respiratory Rate 16 Blood Pressure 158/100 H Blood Pressure [Right Arm] Blood Pressure Mean [Right Arm] Blood Pressure Source Blood Pressure Source [Right Arm] Blood Pressure Position Blood Pressure Position [Right Arm] 02 Sat by Pulse Oximetry 97 97 Oxygen Delivery Method Room Air 07/28/24 23:39 Temperature 97.9 F Temperature Source Oral Pulse Rate 74 Pulse Rate [Left Radial] Respiratory Rate 18 Blood Pressure 128/72 Blood Pressure [Right Arm] Blood Pressure Mean [Right Arm] Blood Pressure Source Automatic Cuff Blood Pressure Source [Right Arm] Blood Pressure Position Supine Blood Pressure Position [Right Arm] 02 Sat by Pulse Oximetry Oxygen Delivery Method Room Air Lab Data Lab results reviewed: Yes I reviewed the patient's lab results. Lab Results 07/28/24 22:20: WBC 12.7 H, RBC 4.81, Hgb 14.9, Hct 42.6, MCV 88.5, MCH 31.1, MCHC 35.1, RDW 13.2, Plt Count 284, MPV 8.1, Neut % (Auto) 74.9, Lymph % (Auto) 19.6, [place] % (Auto) 4.3, Eos % (Auto) 0.8, Baso % (Auto) 0.6, Neut # (Auto) 9.5 H, Lymph # (Auto) 2.5, [place] # (Auto) 0.5, Eos # (Auto) 0.1, Baso # (Auto) 0.1, Sodium 140, Potassium 4.2, Chloride 102, Carbon Dioxide 29, Anion Gap 13.2, BUN 15, Creatinine 1.10, Estimated Creat Clear 14, Estimated GFR 80, Est GFR ( Amer) 97, Glucose 118 H, Calcium 9.8 07/28/24 22:24: VBG pH 7.48 H, VBG pCO2 38.1, VBG pO2 34.4, VBG HCO3 27.4, VBG Total CO2 28.6 H, VBG O2 Saturation 75.6 H, VBG Base Excess 3.8 H, VBG Lactic Acid 2.2 H 07/28/24 22:39: SARS-CoV-2 (PCR) Not detected, Influenza A Untype (PCR) Not detected, Influenza Type B (PCR) Not detected 07/28/24 22:20 07/28/24 22:20 Orders (Tests/Meds): ED MEDICATIONS Discontinued Medications Generic Name Dose Route Start Last Admin Trade Name Freq PRN Reason Stop Dose Admin Albuterol/Ipratropium 6 ml 07/28/24 22:14 07/28/24 22:20 Ipratropium/Albuterol 3 Ml Neb IH 07/28/24 22:15 6 ml ONCE ONE Administration Doxycycline Hyclate 100 mg 07/28/24 22:50 07/28/24 23:07 Doxycycline Hycl 100 Mg Tablet PO 07/28/24 22:51 100 mg ONCE ONE Administration Magnesium Sulfate 2 gm in 50 mls @ 50 mls/hr 07/28/24 22:23 07/28/24 22:49 Magnesium Sulfate 2gm/50ml Premix IV 07/28/24 23:22 50 mls/hr ONCE ONE Administration Prednisone 60 mg 07/28/24 22:15 07/28/24 22:24 Prednisone 20mg Tab PO 07/28/24 22:16 60 mg ONCE ONE Administration ORDERS Category Date Time Status Chest XR 2 view (NOT portable) [XR chest 2V] Stat Exams 07/28/24 22:16 Completed BMP [Basic Metabolic Panel] Stat Lab 07/28/24 22:20 Completed CBC w/Auto Diff [Complete Blood Count Auto Diff] Stat Lab 07/28/24 22:20 Completed HIV (1&2) Antibody Rapid Stat Lab 07/28/24 22:20 Received Hep C Ab with Reflex to RNA Stat Lab 07/28/24 22:20 Received Rapid PCR Covid and Flu A/B Stat Lab 07/28/24 22:39 Completed VBG [Venous Blood Gas] Stat RT 07/28/24 22:24 Completed Medical Decision Narrative: In summary patient is a 29-year-old male who presents to the emergency department for evaluation of asthma exacerbation exacerbation. Patient is hemodynamically stable with a blood pressure 156/91 pulse 99 respiratory rate is 20 satting at 93% on room air upon arrival, afebrile. Physical exam is remarkable for a well-nourished well-developed morbidly obese 29-year-old male who otherwise does not appear to be in acute distress. Physical exam is remarkable for faint end expiratory wheezes in all 4 [place] but no increased work of breathing no adventitious sounds.. Differential diagnosis includes asthma exacerbation versus viral or bacterial respiratory tract infection etc. Initial workup will be conducted with hematologic labs COVID and flu swabs plain film chest x-ray. Initial interventions include DuoNeb prednisone. Initial workup reviewed by me shows his VBG is remarkable for a pH of 7.48 pCO2 of 38.1 with a venous lactate of 2.2 CBC shows white count of 12.7 with an absolute neutrophil count of 9.5 with remainder of his laboratory investigations pending at the time of handoff to Dr. Godoy 2300 hrs. <Obed Godoy MD - Last Filed: 07/28/24 23:43> Vital Signs: 07/28/24 22:13 07/28/24 22:30 07/28/24 22:37 Temperature 98.1 F Temperature Source Oral Pulse Rate 106 H 95 H Pulse Rate [Left Radial] 99 H Respiratory Rate 20 Blood Pressure 165/96 H Blood Pressure [Right Arm] 156/91 H Blood Pressure Mean [Right Arm] 112 Blood Pressure Source Blood Pressure Source [Right Arm] Automatic Cuff Blood Pressure Position Blood Pressure Position [Right Arm] Sitting 02 Sat by Pulse Oximetry 93 L 94 L Oxygen Delivery Method Room Air 07/28/24 22:37 07/28/24 22:57 07/28/24 23:00 Temperature Temperature Source Pulse Rate 97 H Pulse Rate [Left Radial] Respiratory Rate 16 Blood Pressure 158/100 H Blood Pressure [Right Arm] Blood Pressure Mean [Right Arm] Blood Pressure Source Blood Pressure Source [Right Arm] Blood Pressure Position Blood Pressure Position [Right Arm] 02 Sat by Pulse Oximetry 97 97 Oxygen Delivery Method Room Air 07/28/24 23:39 Temperature 97.9 F Temperature Source Oral Pulse Rate 74 Pulse Rate [Left Radial] Respiratory Rate 18 Blood Pressure 128/72 Blood Pressure [Right Arm] Blood Pressure Mean [Right Arm] Blood Pressure Source Automatic Cuff Blood Pressure Source [Right Arm] Blood Pressure Position Supine Blood Pressure Position [Right Arm] 02 Sat by Pulse Oximetry Oxygen Delivery Method Room Air Lab Data Lab Results 07/28/24 22:20: WBC 12.7 H, RBC 4.81, Hgb 14.9, Hct 42.6, MCV 88.5, MCH 31.1, MCHC 35.1, RDW 13.2, Plt Count 284, MPV 8.1, Neut % (Auto) 74.9, Lymph % (Auto) 19.6, [place] % (Auto) 4.3, Eos % (Auto) 0.8, Baso % (Auto) 0.6, Neut # (Auto) 9.5 H, Lymph # (Auto) 2.5, [place] # (Auto) 0.5, Eos # (Auto) 0.1, Baso # (Auto) 0.1, Sodium 140, Potassium 4.2, Chloride 102, Carbon Dioxide 29, Anion Gap 13.2, BUN 15, Creatinine 1.10, Estimated Creat Clear 14, Estimated GFR 80, Est GFR ( Amer) 97, Glucose 118 H, Calcium 9.8 07/28/24 22:24: VBG pH 7.48 H, VBG pCO2 38.1, VBG pO2 34.4, VBG HCO3 27.4, VBG Total CO2 28.6 H, VBG O2 Saturation 75.6 H, VBG Base Excess 3.8 H, VBG Lactic Acid 2.2 H 07/28/24 22:39: SARS-CoV-2 (PCR) Not detected, Influenza A Untype (PCR) Not detected, Influenza Type B (PCR) Not detected Orders (Tests/Meds): ED MEDICATIONS Discontinued Medications Generic Name Dose Route Start Last Admin Trade Name Freq PRN Reason Stop Dose Admin Albuterol/Ipratropium 6 ml 07/28/24 22:14 07/28/24 22:20 Ipratropium/Albuterol 3 Ml Neb IH 07/28/24 22:15 6 ml ONCE ONE Administration Doxycycline Hyclate 100 mg 07/28/24 22:50 07/28/24 23:07 Doxycycline Hycl 100 Mg Tablet PO 07/28/24 22:51 100 mg ONCE ONE Administration Magnesium Sulfate 2 gm in 50 mls @ 50 mls/hr 07/28/24 22:23 07/28/24 22:49 Magnesium Sulfate 2gm/50ml Premix IV 07/28/24 23:22 50 mls/hr ONCE ONE Administration Prednisone 60 mg 07/28/24 22:15 07/28/24 22:24 Prednisone 20mg Tab PO 07/28/24 22:16 60 mg ONCE ONE Administration ORDERS Category Date Time Status Chest XR 2 view (NOT portable) [XR chest 2V] Stat Exams 07/28/24 22:16 Completed BMP [Basic Metabolic Panel] Stat Lab 07/28/24 22:20 Completed CBC w/Auto Diff [Complete Blood Count Auto Diff] Stat Lab 07/28/24 22:20 Completed HIV (1&2) Antibody Rapid Stat Lab 07/28/24 22:20 Received Hep C Ab with Reflex to RNA Stat Lab 07/28/24 22:20 Received Rapid PCR Covid and Flu A/B Stat Lab 07/28/24 22:39 Completed VBG [Venous Blood Gas] Stat RT 07/28/24 22:24 Completed Medical Decision Narrative: In summary patient is a 29-year-old male who presents to the emergency department for evaluation of asthma exacerbation exacerbation. Patient is hemodynamically stable with a blood pressure 156/91 pulse 99 respiratory rate is 20 satting at 93% on room air upon arrival, afebrile. Physical exam is remarkable for a well-nourished well-developed morbidly obese 29-year-old male who otherwise does not appear to be in acute distress. Physical exam is remarkable for faint end expiratory wheezes in all 4 [place] but no increased work of breathing no adventitious sounds.. Differential diagnosis includes asthma exacerbation versus viral or bacterial respiratory tract infection etc. Initial workup will be conducted with hematologic labs COVID and flu swabs plain film chest x-ray. Initial interventions include DuoNeb prednisone. Initial workup reviewed by me shows his VBG is remarkable for a pH of 7.48 pCO2 of 38.1 with a venous lactate of 2.2 CBC shows white count of 12.7 with an absolute neutrophil count of 9.5 with remainder of his laboratory investigations pending at the time of handoff to Dr. Godoy 2300 hrs. Jayne SHEN: I assumed care of the patient at the time of handoff from the prior provider. On reassessment patient reports marked symptomatic improvement. Laboratory results interpreted by me and show no significant electrolyte derangement. Chest x-ray interpreted by me shows some subtle posterior lung markings which could be consistent with pneumonia. This patient was given doxycycline by the previous provider. On reassessment patient's wheezing is resolved. Patient was discharged in stable condition with prescription for steroids, albuterol inhaler and doxycycline. Strict return precautions given. I was consulted by the BARBI, and we discussed the complexity of the problems being addressed. I approved the treatment and management plan for this patient?s care in the Emergency Department, thus performing a substantive portion of the medical decision making. Obed Godoy MD <Castro Villagomez MD - Last Filed: 07/28/24 23:49> Vital Signs: 07/28/24 22:13 07/28/24 22:30 07/28/24 22:37 Temperature 98.1 F Temperature Source Oral Pulse Rate 106 H 95 H Pulse Rate [Left Radial] 99 H Respiratory Rate 20 Blood Pressure 165/96 H Blood Pressure [Right Arm] 156/91 H Blood Pressure Mean [Right Arm] 112 Blood Pressure Source Blood Pressure Source [Right Arm] Automatic Cuff Blood Pressure Position Blood Pressure Position [Right Arm] Sitting 02 Sat by Pulse Oximetry 93 L 94 L Oxygen Delivery Method Room Air 07/28/24 22:37 07/28/24 22:57 07/28/24 23:00 Temperature Temperature Source Pulse Rate 97 H Pulse Rate [Left Radial] Respiratory Rate 16 Blood Pressure 158/100 H Blood Pressure [Right Arm] Blood Pressure Mean [Right Arm] Blood Pressure Source Blood Pressure Source [Right Arm] Blood Pressure Position Blood Pressure Position [Right Arm] 02 Sat by Pulse Oximetry 97 97 Oxygen Delivery Method Room Air 07/28/24 23:39 Temperature 97.9 F Temperature Source Oral Pulse Rate 74 Pulse Rate [Left Radial] Respiratory Rate 18 Blood Pressure 128/72 Blood Pressure [Right Arm] Blood Pressure Mean [Right Arm] Blood Pressure Source Automatic Cuff Blood Pressure Source [Right Arm] Blood Pressure Position Supine Blood Pressure Position [Right Arm] 02 Sat by Pulse Oximetry Oxygen Delivery Method Room Air Lab Data Lab Results 07/28/24 22:20: WBC 12.7 H, RBC 4.81, Hgb 14.9, Hct 42.6, MCV 88.5, MCH 31.1, MCHC 35.1, RDW 13.2, Plt Count 284, MPV 8.1, Neut % (Auto) 74.9, Lymph % (Auto) 19.6, [place] % (Auto) 4.3, Eos % (Auto) 0.8, Baso % (Auto) 0.6, Neut # (Auto) 9.5 H, Lymph # (Auto) 2.5, [place] # (Auto) 0.5, Eos # (Auto) 0.1, Baso # (Auto) 0.1, Sodium 140, Potassium 4.2, Chloride 102, Carbon Dioxide 29, Anion Gap 13.2, BUN 15, Creatinine 1.10, Estimated Creat Clear 14, Estimated GFR 80, Est GFR ( Amer) 97, Glucose 118 H, Calcium 9.8 07/28/24 22:24: VBG pH 7.48 H, VBG pCO2 38.1, VBG pO2 34.4, VBG HCO3 27.4, VBG Total CO2 28.6 H, VBG O2 Saturation 75.6 H, VBG Base Excess 3.8 H, VBG Lactic Acid 2.2 H 07/28/24 22:39: SARS-CoV-2 (PCR) Not detected, Influenza A Untype (PCR) Not detected, Influenza Type B (PCR) Not detected Orders (Tests/Meds): ED MEDICATIONS Discontinued Medications Generic Name Dose Route Start Last Admin Trade Name Freq PRN Reason Stop Dose Admin Albuterol/Ipratropium 6 ml 07/28/24 22:14 07/28/24 22:20 Ipratropium/Albuterol 3 Ml Neb IH 07/28/24 22:15 6 ml ONCE ONE Administration Doxycycline Hyclate 100 mg 07/28/24 22:50 07/28/24 23:07 Doxycycline Hycl 100 Mg Tablet PO 07/28/24 22:51 100 mg ONCE ONE Administration Magnesium Sulfate 2 gm in 50 mls @ 50 mls/hr 07/28/24 22:23 07/28/24 22:49 Magnesium Sulfate 2gm/50ml Premix IV 07/28/24 23:22 50 mls/hr ONCE ONE Administration Prednisone 60 mg 07/28/24 22:15 07/28/24 22:24 Prednisone 20mg Tab PO 07/28/24 22:16 60 mg ONCE ONE Administration ORDERS Category Date Time Status Chest XR 2 view (NOT portable) [XR chest 2V] Stat Exams 11/19/24 22:16 Completed BMP [Basic Metabolic Panel] Stat Lab 07/28/24 22:20 Completed CBC w/Auto Diff [Complete Blood Count Auto Diff] Stat Lab 07/28/24 22:20 Completed HIV (1&2) Antibody Rapid Stat Lab 07/28/24 22:20 Received Hep C Ab with Reflex to RNA Stat Lab 07/28/24 22:20 Received Rapid PCR Covid and Flu A/B Stat Lab 07/28/24 22:39 Completed VBG [Venous Blood Gas] Stat RT 07/28/24 22:24 Completed Medical Decision Narrative: In summary patient is a 29-year-old male who presents to the emergency department for evaluation of asthma exacerbation exacerbation. Patient is hemodynamically stable with a blood pressure 156/91 pulse 99 respiratory rate is 20 satting at 93% on room air upon arrival, afebrile. Physical exam is remarkable for a well-nourished well-developed morbidly obese 29-year-old male who otherwise does not appear to be in acute distress. Physical exam is remarkable for faint end expiratory wheezes in all 4 [place] but no increased work of breathing no adventitious sounds.. Differential diagnosis includes asthma exacerbation versus viral or bacterial respiratory tract infection etc. Initial workup will be conducted with hematologic labs COVID and flu swabs plain film chest x-ray. Initial interventions include DuoNeb prednisone. Initial workup reviewed by me shows his VBG is remarkable for a pH of 7.48 pCO2 of 38.1 with a venous lactate of 2.2 CBC shows white count of 12.7 with an absolute neutrophil count of 9.5 with remainder of his laboratory investigations pending at the time of handoff to Dr. Godoy 2300 hrs. I was consulted by the BARBI, and we discussed the complexity of the problems being addressed. I approve the treatment and management plan for this patient's care in the emergency department, thus performing a substantive portion of the medical decision making. MD Jayne Iglesias MD: I assumed care of the patient at the time of handoff from the prior provider. On reassessment patient reports marked symptomatic improvement. Laboratory results interpreted by me and show no significant electrolyte derangement. Chest x-ray interpreted by me shows some subtle posterior lung markings which could be consistent with pneumonia. This patient was given doxycycline by the previous provider. On reassessment patient's wheezing is resolved. Patient was discharged in stable condition with prescription for steroids, albuterol inhaler and doxycycline. Strict return precautions given. I was consulted by the BARBI, and we discussed the complexity of the problems being addressed. I approved the treatment and management plan for this patient?s care in the Emergency Department, thus performing a substantive portion of the medical decision making. Obed Godoy MD Critical Care <IAN Burgess - Last Filed: 07/28/24 22:45> Critical Care Time Critical Care Time: No <Obed Godoy MD - Last Filed: 07/28/24 23:43> Critical Care Time Critical Care Time: Yes Attestation: On 07/28/24, the high probability of a clinically significant, sudden or life threatening deterioration of the following system(s) respiratory required my full and direct attention, intervention and personal management. The time I documented below is in addition to time spent performing reported procedures but includes the following listed in this critical care notation. Total Time Total Critical Care Time: 35
--- NOTE | 2024-07-28 22:16 | XR_ITS ---
PROCEDURE INFORMATION: Exam: XR Chest Exam date and time: 07/28/2024 10:15 PM Age: 29 years old Clinical indication: Other: Asthma exacerbation TECHNIQUE: Imaging protocol: Radiologic exam of the chest. Views: 2 views. COMPARISON: CR XR CHEST 2V 01/06/2022 1:34 AM FINDINGS: Lungs: Unremarkable. No consolidation. Pleural spaces: Unremarkable. No pleural effusion. No pneumothorax. Heart/Mediastinum: Unremarkable. No cardiomegaly. Bones/joints: No acute bony abnormalities detected. IMPRESSION: Negative chest. No active disease.
[2024-07-28] MEDS: IPRATROPIUM/ALBUTEROL 3 ML NEB 6 ML IH (22:20)
[2024-07-28] MEDS: predniSONE 20MG TAB 60 MG PO (22:24)
[2024-07-28 22:29] LABS: Lactate Venous 2.2 mmol/L (0.4-2.0); VBG Base Excess 3.8 mmol/L (-2.4-2.3); VBG HCO3 27.4 mmol/L (23-30); VBG Oxygen Saturation 75.6 % (50-70); VBG PCO2 38.1 mmol/L (35-51); VBG PH 7.48 mmol/L (7.31-7.41); VBG PO2 34.4 mmol/L (28-40); VBG Total CO2 28.6 mmol/L (23-27)
[2024-07-28 22:30] VITALS: BP 165/96; PULSE 106; O2SAT 94
[2024-07-28 22:37] VITALS: PULSE 95; PULSE 97
[2024-07-28 22:37] LABS: Basophils # 0.1 K/mm3 (0-0.2); Basophils % 0.6 % (0.1-2.0); Eosinophils # 0.1 K/mm3 (0.0-0.4); Eosinophils % 0.8 % (0.1-12.0); Hematocrit 42.6 % (42.0-52.0); Hemoglobin 14.9 g/dL (14.1-18.0); Lymphocytes # 2.5 K/mm3 (0.7-4.5); Lymphocytes % 19.6 % (10-50); Mean Corpuscular HGB Conc 35.1 g/dL (31.8-35.4); Mean Corpuscular Hemoglobin 31.1 pg (27.0-31.2); Mean Corpuscular Volume 88.5 fl (80-94); Mean Platelet Volume 8.1 fl (7.4-10.4); Monocytes # 0.5 K/mm3 (0.1-1.0); Monocytes % 4.3 % (1.7-9.3); Neutrophils # 9.5 K/mm3 (1.8-7.8); Neutrophils % 74.9 % (37.0-80.0); Platelet Count 284 K/mm3 (142-424); Red Blood Count 4.81 M/mm3 (4.60-6.20); Red Cell Distribution Width 13.2 % (11.5-17.5); White Blood Count 12.7 K/mm3 (4.8-10.8)
[2024-07-28 22:46] LABS: Coronavirus 19, PCR Not Detected (NotDetected); Influenza A, PCR Not Detected (NotDetected); Influenza B, PCR Not Detected (NotDetected)
[2024-07-28] MEDS: MAGNESIUM SULFATE IN WATER 2 GM/50 ML PIGGYBACK IV (22:49)
[2024-07-28 22:57] VITALS: O2SAT 97
[2024-07-28 22:59] LABS: Chloride 102 mmol/L (98-107); Potassium 4.2 mmoL/L (3.5-5.1); Sodium 140 mmol/L (136-145)
[2024-07-28 23:00] VITALS: BP 158/100; RESP 16; O2SAT 97
[2024-07-28 23:02] LABS: Anion Gap 13.2 mEq/L (5-15); Blood Urea Nitrogen 15 mg/dl (9-20); Calcium 9.8 mg/dl (8.4-10.2); Carbon Dioxide 29 mmol/L (22.0-30.0); Creatinine Clearance Estimated 14 mL/min (50-200); Estimated Glomerular Filt Rate 80 ml/min (>60); GFR (African American) 97 ML/MIN (>60); Glucose 118 mg/dl (74-100)
[2024-07-28] MEDS: DOXYCYCLINE HYCL 100 MG TABLET PO (23:07)
[2024-07-28 23:39] VITALS: BP 128/72; PULSE 74; RESP 18; TEMP 36.6; O2SAT 98
[2024-07-29 00:24] LABS: HIV (1&2) Antibody Rapid NONREACTIVE (NONREACTIVE)
[2024-07-29 02:30] LABS: Reflex Lactic Add Lactic Reflex
--- NOTE | 2024-07-29 13:08 | PC.NURSE ---
pt's called to check status of prescriptions as [facility] in [place]. Pt's prescriptions were sent to [facility], states that is was fine to keep it that way and not transfer them to [facility].
[2024-07-30 06:26] LABS: HCV Ab Non Reactive (Non Reactive)
== END 2024-07-28 23:44 | disposition home or self-care (01) ==
PROVIDERS: Physician Assistant; Student in an Organized Health Care Education/Training Program; Emergency Provider Emergency Medicine; PCP Internal Medicine Adolescent Medicine
DX: J45.901 Unspecified asthma with (acute) exacerbation (principal); R06.02 Shortness of breath
CPT/HCPCS: 71046; 80048; 82803; 85025; 86803; 87389; 87636; 96365; 99291; J3475; J7620

== ENCOUNTER 2024-08-31 17:06 | Emergency (ER) | payer OTHER, SELFPAY ==
--- NOTE | 2024-08-31 18:56 | EXP.UTC ---
Discharge Plan Disposition Patient Disposition: Home, Self-Care Condition: Good Prescriptions Prescriptions: New cephalexin 500 mg capsule 500 mg PO QID 7 Days Qty: 28 0RF Referrals Follow up/Referrals: Slim Smith MD [Primary Care Provider] - See instructions Activity Restrictions/Add. Instructions Additional Instructions/Restrictions: Keep the wound clean and dry. Keep a dressing on it if you are going to be getting it dirty. Watch the wound for signs of infection, such as redness, swelling, drainage, fever. etc. Take tylenol or ibuprofen for pain. Follow up with your regular doctor. GO TO THE ER FOR ANY WORSENING SYMPTOMS OR CONCERNS. Clinical Impressions Clinical Impression: Laceration of right thumb Instructions Patient Instructions: DI for Laceration Repair -- Finger, Cephalexin Print Language Print Language: Ukrainian Discharge ED Provider: Chandler Castelan [facility] General Stated complaint: R thumb laceration ao Time Seen by Provider: 08/31/24 18:56 Related Data Previous Rx's ?Medication ?Instructions ?Recorded cephalexin 500 mg capsule 500 mg PO QID 7 days #28 caps 08/31/24 Allergies Allergy/AdvReac Type Severity Reaction Status Date / Time No Known Allergies Allergy Verified 07/05/21 14:25 [facility] Disclaimer: The information contained in this section may have been updated after the patient was seen, as this information can be updated by other users. Social History Smoking Status: Unknown if ever smoked second hand exposure: No alcohol intake: never current occupational status: employed Travel in the last 8 weeks: None household members: spouse and children housing: house current occupational exposures/hazards: No Have you lived/traveled outside US in past 30 days?: No Contact w/someone who lives/traveled outside US past 30 days?: No Exposure to someone with infectious disease in past 14 days?: No Do you have a fever (greater than 100.4 F or 38 C)?: No Have you tested positive for COVID-19: No Exposed to someone with COVID-19 in past 14 days?: No Do you have a sore throat?: No Do you have a cough?: No Do you have any weakness?: No Do you have any diarrhea?: No Are you experiencing any unusual bleeding?: No Do you have any muscle aches/pain?: No Do you have any abdominal pain?: No Are you experiencing loss of taste or smell?: No ROS Obtained: Yes All systems reviewed & no additional complaints except as documented Constitutional Constitutional: Denies chills and Denies fever(s) Eyes Eyes: Denies eye discharge ENT Ears, Nose, Mouth, and Throat: Denies dizziness, Denies otalgia and Denies sore throat Cardiovascular Cardiovascular: Denies chest pain Respiratory Respiratory: Denies shortness of breath, Denies chest congestion, Denies cough, Denies stridor and Denies wheezing Gastrointestinal Gastrointestingal: Denies nausea or vomiting Musculoskeletal Musculoskeletal: Reports system reviewed and no additional complaints, except as documented and Denies arthralgias Integumentary/Breasts Skin/Breast: Reports as per HPI, Denies rash and Reports wounds Neurologic Neurologic: Denies dizziness and Denies paresthesias Allergic/Immunologic Allergic/Immunologic: Denies wheezing Physical Exam General General appearance: alert and in no apparent distress Head Head exam: atraumatic, normocephalic and normal inspection Eye Eye exam: Present normal appearance, PERRL and EOMI ENT ENT exam: Present normal exam, normal oropharynx, mucous membranes moist, TM's normal bilaterally and normal external ear exam Neck Neck exam: Present normal inspection, full ROM and trachea midline; Absent meningismus or lymphadenopathy Chest Chest inspection: Present normal inspection and symmetric chest wall rise; Absent tenderness Respiratory Respiratory exam: Present normal lung sounds bilaterally; Absent respiratory distress Cardiovascular Cardiovascular exam: Present regular rate and normal rhythm; Absent JVD Abdominal Exam Abdominal exam: Present soft and normal bowel sounds; Absent distention, tenderness or guarding Extremities Exam Extremities exam: Present normal inspection, full ROM and normal capillary refill; Absent calf tenderness Back Exam Back exam: Present normal inspection; Absent tenderness Neurological Exam Neurological exam: Present alert and oriented X3 Psychiatric Psychiatric exam: Present normal affect and normal mood Skin Skin exam: Present warm, dry, intact and normal color Lymphatic Lymphatic Findings: no adenopathy Medical Decision Making Medical Records Medical records reviewed: No I reviewed the patient's medical records. Screening: Per USPSTF and CDC recommendations, given the prevalence of disease in our region, it is our hospital?s policy to screen for HIV and viral Hepatitis for all patients aged 18 and over and those with ongoing risk factors. Jon Inquiry Pt receiving controlled substance: No Procedures Risk/Benefits of Procedure(s) Were Explained: Yes Laceration Laceration 1: Site: thumb Side (If applicable): right Size (cm): 2 Description: linear Depth: simple, single layer Local Anesthetic: lidocaine 1% Amount of anesthesia used (mL): 0.5 Pre-repair: wound explored, irrigated extensively and deep structures intact Skin layer closed with: nylon Size (cm): 5-0 Number of sutures: 5 Technique: simple, interrupted (He tolerated this well, good closure was obtained. the edges were approximated well. )
[2024-08-31 18:58] VITALS: BP 128/74; PULSE 71; RESP 18; TEMP 36.8; O2SAT 96; BMI 42.5
[2024-08-31 20:14] VITALS: BP 128/74; PULSE 71; RESP 18; TEMP 36.8
== END 2024-08-31 20:15 | disposition home or self-care (01) ==
PROVIDERS: Emergency Provider Nurse Practitioner Family; PCP Internal Medicine Adolescent Medicine
DX: S61.011A Laceration without foreign body of right thumb without damage to nail, initial encounter (principal)
CPT/HCPCS: 99212; G0381

== ENCOUNTER 2024-09-12 19:30 | Emergency (ER) | payer OTHER, SELFPAY ==
[2024-09-12 19:32] VITALS: BP 130/76; PULSE 88; RESP 18; TEMP 36.8; O2SAT 98; BMI 40.1
--- NOTE | 2024-09-12 19:42 | ED_ITS ---
Discharge Plan Disposition Patient Disposition: Home, Self-Care Prescriptions Prescriptions: New methocarbamol 750 mg tablet 750 mg PO TID Qty: 14 0RF ketorolac 10 mg tablet 10 mg PO Q8H PRN (Reason: pain) 2 Days Qty: 7 0RF No Action cephalexin 500 mg capsule 500 mg PO QID 7 Days Qty: 28 0RF Referrals Follow up/Referrals: Slim Smith MD [Primary Care Provider] - See instructions Activity Restrictions/Add. Instructions Additional Instructions/Restrictions: Please follow-up with your primary doctor for further management. If you develop numbness around your genital area, have loss of bowel or bladder function. Clinical Impressions Clinical Impression: Back pain Instructions Patient Instructions: DI for Low Back Pain Print Language Print Language: Welsh Discharge ED Provider: Moe Dean Adult HPI General Chief complaint: Back Pain/Injury Stated complaint: lower back pain Time Seen by Provider: 09/12/24 19:40 History of Present Illness HPI narrative: Patient is a 29-year-old no past medical history presenting for. Patient said that he was lifting something about a month ago and he initially got better after a week but over the last week or so he has had worsening pain in his left lower back. He describes the pain as a pulling sensation when he bends over or tries to lift his leg straight up. He has no shooting pain down his legs, no bowel or bladder incontinence, and has not taken any medications prior to arrival. Patient said that he was told by his to come in because he was not getting any better. At this time patient denies chest pain, shortness of breath, abdominal pain, nausea, vomiting Related Data Previous Rx's ?Medication ?Instructions ?Recorded cephalexin 500 mg capsule 500 mg PO QID 7 days #28 caps 08/31/24 ketorolac 10 mg tablet 10 mg PO Q8H PRN pain 2 days #7 09/12/24 tabs methocarbamol 750 mg tablet 750 mg PO TID #14 tabs 09/12/24 Allergies Allergy/AdvReac Type Severity Reaction Status Date / Time No Known Allergies Allergy Verified 07/05/21 14:25 [facility] Disclaimer: The information contained in this section may have been updated after the patient was seen, as this information can be updated by other users. Social History (Reviewed 04/18/24 @ 15:31 by ESTUARDO Cadrenas Smoking Status: Unknown if ever smoked second hand exposure: No alcohol intake: never current occupational status: employed Travel in the last 8 weeks: None household members: spouse and children housing: house current occupational exposures/hazards: No Have you lived/traveled outside US in past 30 days?: No Contact w/someone who lives/traveled outside US past 30 days?: No Exposure to someone with infectious disease in past 14 days?: No Do you have a fever (greater than 100.4 F or 38 C)?: No Have you tested positive for COVID-19: No Exposed to someone with COVID-19 in past 14 days?: No Do you have a sore throat?: No Do you have a cough?: No Do you have any weakness?: No Do you have any diarrhea?: No Are you experiencing any unusual bleeding?: No Do you have any muscle aches/pain?: No Do you have any abdominal pain?: No Are you experiencing loss of taste or smell?: No Other Medical History Have you received the Flu Vaccine for this season: No Have you received the Pneumonia Vaccine: No ROS Obtained: Yes All systems reviewed & no additional complaints except as documented Physical Exam General General appearance: alert and in no apparent distress Eye Eye exam: Present normal appearance ENT ENT exam: Present normal exam Chest Chest inspection: Present symmetric chest wall rise Respiratory Respiratory exam: Present normal lung sounds bilaterally; Absent respiratory distress Cardiovascular Cardiovascular exam: Present regular rate Abdominal Exam Abdominal exam: Present soft; Absent tenderness, guarding or rebound Extremities Exam Extremities exam: Present full ROM; Absent tenderness Back Exam Back exam: Present normal inspection, full ROM, tenderness (Left paraspinal, no midline tenderness) and paraspinal tenderness; Absent CVA tenderness (R), CVA tenderness (L) or vertebral tenderness Neurological Exam Neurological exam: Present alert and oriented X3 Psychiatric Psychiatric exam: Present normal affect Skin Skin exam: Present warm and normal color Medical Decision Making Medical Records Screening: Per USPSTF and CDC recommendations, given the prevalence of disease in our region, it is our hospital?s policy to screen for HIV and viral Hepatitis for all patients aged 18 and over and those with ongoing risk factors. Jon Inquiry Pt receiving controlled substance: No Vital Signs: 09/12/24 19:32 09/12/24 19:49 09/12/24 20:17 Temperature 98.2 F 98.2 F 97.9 F Temperature Source Oral Oral Pulse Rate 88 88 Pulse Rate [Left] 88 Respiratory Rate 18 18 18 Blood Pressure 130/76 130/76 Blood Pressure [Right Arm] 130/76 Blood Pressure Mean [Right Arm] 94 02 Sat by Pulse Oximetry 98 98 Oxygen Delivery Method Room Air Room Air Room Air Orders (Tests/Meds): ED MEDICATIONS Discontinued Medications Generic Name Dose Route Start Last Admin Trade Name Leonidas PRN Reason Stop Dose Admin Acetaminophen 1,000 mg 09/12/24 20:06 09/12/24 20:22 Acetaminophen 500mg Tab PO 09/12/24 20:07 1,000 mg ONCE ONE Administration Ketorolac Tromethamine 15 mg 09/12/24 20:06 09/12/24 20:23 Ketorolac 30mg/Ml Vial IM 09/12/24 20:07 15 mg ONCE ONE Administration Lidocaine 1 each 09/12/24 20:06 09/12/24 20:25 Lidocaine 5% Transdermal Patch TP 09/12/24 20:07 1 each ONCE ONE Administration Methocarbamol 1,000 mg 09/12/24 21:00 09/12/24 20:22 Methocarbamol 500mg Tablet PO 10/12/24 20:59 1,000 mg BID KESHIA Administration Medical Decision Narrative: In summary, this 29-year-old man presents to the emergency department today with back pain. On initial evaluation patient is hemodynamically stable alert and in no acute distress. Patient is having paraspinal pain with no red flag symptoms.. Differential diagnosis includes but is not limited to muscular strain, kidney stone, disc herniation. Based on these concerns, I ordered pain medication. Due to patient having no pain medication prior to arrival and no red flag symptoms imaging was deferred at this time On reassessment pain well-controlled, given strict return precautions, all questions answered, patient discharged. Critical Care Critical Care Time Critical Care Time: No
[2024-09-12 19:49] VITALS: BP 130/76; PULSE 88; RESP 18; TEMP 36.8; O2SAT 98
[2024-09-12 20:17] VITALS: BP 130/76; PULSE 88; RESP 18; TEMP 36.6; O2SAT 98
[2024-09-12] MEDS: METHOCARBAMOL 500MG TABLET 1000 MG PO (20:22)
[2024-09-12] MEDS: ACETAMINOPHEN 500MG TAB 1000 MG PO (20:22)
[2024-09-12] MEDS: KETOROLAC 30MG/ML VIAL 15 MG IM (20:23)
[2024-09-12] MEDS: LIDOCAINE 5% TRANSDERMAL PATCH 1 EACH TP (20:25)
== END 2024-09-12 20:32 | disposition home or self-care (01) ==
PROVIDERS: Emergency Provider Student in an Organized Health Care Education/Training Program; PCP Internal Medicine Adolescent Medicine
DX: M54.50 Low back pain, unspecified (principal)
CPT/HCPCS: 96372; 99283; J1885

== ENCOUNTER 2024-12-06 11:08 | Emergency (ER) | payer OTHER, SELFPAY ==
[2024-12-06] VITALS (7 sets, daily range): BP systolic 106–134; BP diastolic 60–84; PULSE 63–89; RESP 16–18; TEMP 36.7–37.1; O2SAT 94–98; BMI 38.9
--- NOTE | 2024-12-06 12:05 | XR_ITS ---
PROCEDURE INFORMATION: Exam: XR Right Ankle Exam date and time: 12/06/2024 12:09 PM Age: 29 years old Clinical indication: Pain; Ankle; Right; Additional info: Right foot pain, yesterday TECHNIQUE: Imaging protocol: Radiologic exam of the right ankle. Views: 3 or more views. Total images: 3 COMPARISON: CR Foot R 12/06/2024 12:07 PM FINDINGS: Bones/joints: No evidence of acute fracture or dislocation. Calcaneal spurs are present. Soft tissues: Soft tissues are within normal limits. IMPRESSION: No evidence of acute fracture or dislocation.
--- NOTE | 2024-12-06 12:05 | XR_ITS ---
PROCEDURE INFORMATION: Exam: XR Right Foot Exam date and time: 12/06/2024 12:07 PM Age: 29 years old Clinical indication: Pain; Foot; Right; Additional info: Right foot pain, yesterday TECHNIQUE: Imaging protocol: Radiologic exam of the right foot. Views: 3 or more views. Total images: 3 COMPARISON: No relevant prior studies available. FINDINGS: Bones/joints: Hallux valgus deformity. No evidence of acute fracture or dislocation. Soft tissues: Mild lateral soft tissue swelling. IMPRESSION: 1. Hallux valgus deformity. 2. No evidence of acute fracture or dislocation. 3. Mild lateral soft tissue swelling. Calcaneal spurs are present.
--- NOTE | 2024-12-06 12:53 | ED_ITS ---
Discharge Plan Disposition Patient Disposition: Home, Self-Care Prescriptions Prescriptions: New ibuprofen 800 mg tablet 800 mg PO Q8H PRN (Reason: pain) Qty: 18 0RF Rx Instructions: Please take with food No Action Ozempic 0.25 mg or 0.5 mg (2 mg/3 mL) pen injector SQ Patient Comments: INJECT 0.5MG SUBCUTANEOUSLY ONCE A WEEK ondansetron 4 mg tablet,disintegrating 4 mg PO Q8H PRN (Reason: nausea and vomiting) Qty: 10 0RF Referrals Follow up/Referrals: Mendez Kim DO [Staff Physician] - See instructions Slim Smith MD [Primary Care Provider] - See instructions Activity Restrictions/Add. Instructions Additional Instructions/Restrictions: At this time it was felt you are safe to be discharged home. If new or worsening symptoms please do not hesitate to return the emergency department. Please bear weight as tolerated on your affected foot and use crutches if you need. If your symptoms last longer than 10 days please call and schedule an appointment with Dr. Kim. Please take Tylenol as the package directs in a ddition to your ibuprofen as needed as it was prescribed. Clinical Impressions Clinical Impression: Acute foot pain Print Language Print Language: Azeri Discharge ED Provider: Lidya Garber General Adult HPI <Lidya Garber MD - Last Filed: 12/06/24 15:09> General Chief complaint: PAIN Stated complaint: R foot pain/pressure Time Seen by Provider: 12/06/24 12:53 Mode of Arrival: Ambulatory Source of Information: Patient Description of Symptoms (Recalled from ER Triage Doc. by RN): pt presents to ED with c/o right foot pain symptoms began yesterday morning. History of Present Illness HPI narrative: Patient is a 29-year-old with no significant past medical history presents to the emergency department with right foot pain. Patient has been redoing floors in the house but is unsure of any trauma. Patient's pain is worse in the midfoot. Has not been able to ambulate since. Wears unsupportive shoes. Related Data Home Medications ?Medication ?Instructions ?Recorded ?Confirmed semaglutide 0.25 mg or 0.5 mg (2 mg SQ 11/08/24 11/08/24 mg/3 mL) subcutaneous pen injector (Ozempic) Previous Rx's ?Medication ?Instructions ?Recorded ondansetron 4 mg disintegrating 4 mg PO Q8H PRN nausea and 11/08/24 tablet vomiting #10 tabs ibuprofen 800 mg tablet 800 mg PO Q8H PRN pain #18 tabs 12/06/24 Allergies Allergy/AdvReac Type Severity Reaction Status Date / Time No Known Allergies Allergy Verified 11/08/24 14:36 PFS <Lidya Garber MD - Last Filed: 12/06/24 15:09> [facility] Disclaimer: The information contained in this section may have been updated after the patient was seen, as this information can be updated by other users. Medical History (Updated 12/06/24 @ 16:09 by Renny Hannah MD) Nausea vomiting and diarrhea Social History Smoking Status: Never smoker second hand exposure: No alcohol intake: never current occupational status: employed Travel in the last 8 weeks: None household members: spouse and children housing: house current occupational exposures/hazards: No Have you lived/traveled outside US in past 30 days?: No Contact w/someone who lives/traveled outside US past 30 days?: No Exposure to someone with infectious disease in past 14 days?: No Do you have a fever (greater than 100.4 F or 38 C)?: No Have you tested positive for COVID-19: No Exposed to someone with COVID-19 in past 14 days?: No Do you have a sore throat?: No Do you have a cough?: No Do you have any weakness?: No Do you have any diarrhea?: No Are you experiencing any unusual bleeding?: No Do you have any muscle aches/pain?: Yes Do you have any abdominal pain?: No Are you experiencing loss of taste or smell?: No Other Medical History Have you received the Flu Vaccine for this season: No Have you received the Pneumonia Vaccine: No <Lidya Garber MD - Last Filed: 12/06/24 15:09> ROS Obtained: Yes All systems reviewed & no additional complaints except as documented Physical Exam <Lidya Garber MD - Last Filed: 12/06/24 15:09> General General appearance: alert Respiratory Respiratory exam: Present normal lung sounds bilaterally; Absent respiratory distress Cardiovascular Cardiovascular exam: Present regular rate and normal rhythm Extremities Exam Extremities exam: Present normal inspection, full ROM and tenderness (Base of the fifth metatarsal on the right no overlying bruising abrasions lacerations) Neurological Exam Neurological exam: Present alert Skin Skin exam: Present warm and dry Medical Decision Making <Lidya Garber MD - Last Filed: 12/06/24 15:09> Medical Records Screening: Per USPSTF and CDC recommendations, given the prevalence of disease in our region, it is our hospital?s policy to screen for HIV and viral Hepatitis for all patients aged 18 and over and those with ongoing risk factors. Jon Inquiry Pt receiving controlled substance: No Vital Signs: 12/06/24 11:15 12/06/24 11:26 12/06/24 12:30 Temperature 98.0 F Temperature Source Oral Pulse Rate 77 80 Pulse Rate [Left Radial] 89 Respiratory Rate 16 Blood Pressure 113/60 111/61 Blood Pressure [Right Arm] 131/71 Blood Pressure Mean [Right Arm] 91 Blood Pressure Source [Right Arm] Automatic Cuff Blood Pressure Position [Right Arm] Supine 02 Sat by Pulse Oximetry 94 L 95 95 Oxygen Delivery Method Room Air Room Air Room Air 12/06/24 13:45 12/06/24 14:15 12/06/24 14:45 Temperature Temperature Source Pulse Rate 80 74 63 Pulse Rate [Left Radial] Respiratory Rate Blood Pressure 119/60 111/60 106/60 L Blood Pressure [Right Arm] Blood Pressure Mean [Right Arm] Blood Pressure Source [Right Arm] Blood Pressure Position [Right Arm] 02 Sat by Pulse Oximetry 96 98 96 Oxygen Delivery Method Room Air Room Air Room Air Orders (Tests/Meds): ORDERS Category Date Time Status CT foot RT wo con Stat Cat Scan 12/06/24 13:34 Completed Ankle XR -Right minimum 3 Views [XR ankle RT min 3V] Exams 12/06/24 12:05 Completed Stat XR foot RT min 3V Stat Exams 12/06/24 12:05 Completed Medical Decision Narrative: In summary, this 29-year-old male presents to the emergency department today with foot pain. On initial evaluation patient is hemodynamically stable saturating appropriately on room air afebrile no acute distress. Differential diagnosis includes but is not limited to acute fracture dislocation tendon injury ligamentous injury. Based on these concerns, I ordered x-ray of the foot. X-ray unremarkable for acute fracture CT foot obtained. Lower suspicion for septic arthritis or inflammatory arthritis based on location of pain and no erythema warmth or swelling surrounding tenderness. At 3 PM transfer care given to Dr. Hannah to follow-up CT foot read. <Renny Hannah MD - Last Filed: 12/06/24 16:09> Vital Signs: 12/06/24 11:15 12/06/24 11:26 12/06/24 12:30 Temperature 98.0 F Temperature Source Oral Pulse Rate 77 80 Pulse Rate [Left Radial] 89 Respiratory Rate 16 Blood Pressure 113/60 111/61 Blood Pressure [Right Arm] 131/71 Blood Pressure Mean [Right Arm] 91 Blood Pressure Source [Right Arm] Automatic Cuff Blood Pressure Position [Right Arm] Supine 02 Sat by Pulse Oximetry 94 L 95 95 Oxygen Delivery Method Room Air Room Air Room Air 12/06/24 13:45 12/06/24 14:15 12/06/24 14:45 Temperature Temperature Source Pulse Rate 80 74 63 Pulse Rate [Left Radial] Respiratory Rate Blood Pressure 119/60 111/60 106/60 L Blood Pressure [Right Arm] Blood Pressure Mean [Right Arm] Blood Pressure Source [Right Arm] Blood Pressure Position [Right Arm] 02 Sat by Pulse Oximetry 96 98 96 Oxygen Delivery Method Room Air Room Air Room Air Orders (Tests/Meds): ORDERS Category Date Time Status CT foot RT wo con Stat Cat Scan 12/06/24 13:34 Completed Ankle XR -Right minimum 3 Views [XR ankle RT min 3V] Exams 12/06/24 12:05 Completed Stat XR foot RT min 3V Stat Exams 12/06/24 12:05 Completed Medical Decision Narrative: In summary, this 29-year-old male presents to the emergency department today with foot pain. On initial evaluation patient is hemodynamically stable saturating appropriately on room air afebrile no acute distress. Differential diagnosis includes but is not limited to acute fracture dislocation tendon injury ligamentous injury. Based on these concerns, I ordered x-ray of the foot. X-ray unremarkable for acute fracture CT foot obtained. Lower suspicion for septic arthritis or inflammatory arthritis based on location of pain and no erythema warmth or swelling surrounding tenderness. At 3 PM transfer care given to Dr. Hannah to follow-up CT foot read. Foot CT no acute bony process identified. Given this patient will be placed in crutches for comfort and will be weightbearing as tolerated will follow-up with Dr. Kim on an outpatient basis. Critical Care <Lidya Garber MD - Last Filed: 12/06/24 15:09> Critical Care Time Critical Care Time: No
--- NOTE | 2024-12-06 13:34 | CT_ITS ---
PROCEDURE INFORMATION: Exam: CT Right Lower Extremity Without Contrast, Foot Exam date and time: 12/06/2024 1:42 PM Age: 29 years old Clinical indication: Pain; Foot; Right; Additional info: Negative x-ray. Right foot pain after waking up. No injury. TECHNIQUE: Imaging protocol: CT of the right lower extremity without contrast was performed. Exam focused on the foot. Radiation optimization: All CT scans at this facility use at least one of these dose optimization techniques: automated exposure control; mA and/or kV adjustment per patient size (includes targeted exams where dose is matched to clinical indication); or iterative reconstruction. COMPARISON: CR Foot R 12/06/2024 12:07 PM FINDINGS: Bones/joints: Normal bony alignment and mineralization. No acute fracture, dislocation or bony erosions identified. Minimal arthropathy.There is enthesopathy at the calcaneal attachment site of the Achilles tendon.There is a calcaneal spur at the attachment site of the plantar fascia. Soft tissues: Normal. IMPRESSION: No acute bony process is identified. If symptoms persist, clinical scenario should determine need for further assessment with contrast-enhanced MRI of the right foot.
== END 2024-12-06 16:17 | disposition home or self-care (01) ==
PROVIDERS: Emergency Provider Student in an Organized Health Care Education/Training Program; PCP Internal Medicine Adolescent Medicine
DX: M79.671 Pain in right foot (principal)
CPT/HCPCS: 73610; 73630; 73700; 99284

== ENCOUNTER 2025-05-25 20:47 | Emergency (ER) | payer SELFPAY ==
[2025-05-25] VITALS (10 sets, daily range): BP systolic 113–148; BP diastolic 66–79; PULSE 52–98; RESP 16–18; TEMP 36.7–37.2; O2SAT 93–100; BMI 34.0
--- NOTE | 2025-05-25 21:09 | HMH.EDGENADL ---
Discharge Plan Disposition Patient Disposition: Left Against Medical Advice Condition: Good Prescriptions Prescriptions: No Action Ozempic 0.25 mg or 0.5 mg (2 mg/3 mL) pen injector SQ Patient Comments: INJECT 0.5MG SUBCUTANEOUSLY ONCE A WEEK ondansetron 4 mg tablet,disintegrating 4 mg PO Q8H PRN (Reason: nausea and vomiting) Qty: 10 0RF ibuprofen 800 mg tablet 800 mg PO Q8H PRN (Reason: pain) Qty: 18 0RF Rx Instructions: Please take with food Referrals Follow up/Referrals: Slim Smith MD [Primary Care Provider, Internal Medicine] - See instructions Activity Restrictions/Add. Instructions Additional Instructions/Restrictions: Use the albuterol inhaler 4 puffs every 4 hours for the next 2 days and then as needed afterwards. Clinical Impressions Clinical Impression: Asthma with acute exacerbation Qualifiers: Asthma severity: unspecified severity Asthma persistence: unspecified Qualified Code(s): J45.901 - Unspecified asthma with (acute) exacerbation Stand Alone Forms Stand Alone Forms: Work/School Release Print Language Print Language: Gabonese Discharge ED Provider: Shannan Alvares General Adult HPI General Chief complaint: Shortness of Breath/Dyspnea Stated complaint: Possible Asthma Attack; SOB Time Seen by Provider: 05/25/25 21:09 History of Present Illness HPI narrative: Patient is an otherwise healthy 29-year-old male who presented to the emergency department with chest pain and shortness of breath. Patient states that he does have a history of asthma, patient has not had his inhaler. Patient states that his chest pressure started couple hours prior to arrival. Patient feels short of breath as well. Patient has not had any cough runny nose or other upper respiratory symptoms. Patient has not had any abdominal pain nausea vomiting or diarrhea. Patient denies any history of blood clots. Patient has not had any recent travel. No other symptoms at this time. Related Data Home Medications ?Medication ?Instructions ?Recorded ?Confirmed semaglutide 0.25 mg or 0.5 mg (2 mg SQ 11/08/24 11/08/24 mg/3 mL) subcutaneous pen injector (Ozempic) Previous Rx's ?Medication ?Instructions ?Recorded ondansetron 4 mg disintegrating 4 mg PO Q8H PRN nausea and 11/08/24 tablet vomiting #10 tabs ibuprofen 800 mg tablet 800 mg PO Q8H PRN pain #18 tabs 12/06/24 Allergies Allergy/AdvReac Type Severity Reaction Status Date / Time No Known Allergies Allergy Verified 11/08/24 14:36 [facility] Disclaimer: The information contained in this section may have been updated after the patient was seen, as this information can be updated by other users. Medical History (Updated 05/25/25 @ 23:29 by Shannan Alvares DO) Nausea vomiting and diarrhea Social History Smoking Status: Never smoker second hand exposure: No alcohol intake: never current occupational status: employed Travel in the last 8 weeks?: None household members: spouse and children housing: house current occupational exposures/hazards: No Have you lived/traveled outside [place] in past 30 days?: No Contact w/someone who lives/traveled outside US past 30 days?: No Exposure to someone with infectious disease in past 14 days?: No Do you have a fever (greater than 100.4 F or 38 C)?: No Have you tested positive for COVID-19?: No Exposed to someone with COVID-19 in past 14 days?: No Do you have a sore throat?: No Do you have a cough?: No Do you have any weakness?: No Do you have any diarrhea?: No Are you experiencing any unusual bleeding?: No Do you have any muscle aches/pain?: No Do you have any abdominal pain?: No Are you experiencing loss of taste or smell?: No Other Medical History Have you received the Flu Vaccine for this season: No Have you received the Pneumonia Vaccine: No ROS Obtained: Yes All systems reviewed & no additional complaints except as documented and Yes Systems reviewed as appropriate & no additional complaints except as documented Physical Exam General General appearance: alert and in no apparent distress Head Head exam: atraumatic, normocephalic and normal inspection Eye Eye exam: Present normal appearance, PERRL and EOMI; Absent scleral icterus ENT ENT exam: Present normal exam and normal external ear exam Neck Neck exam: Present normal inspection and full ROM Chest Chest inspection: Present normal inspection and symmetric chest wall rise Respiratory Respiratory exam: Present normal lung sounds bilaterally; Absent respiratory distress or wheezes Cardiovascular Cardiovascular exam: Present regular rate, normal rhythm and normal heart sounds Abdominal Exam Abdominal exam: Present soft and distention; Absent tenderness, guarding or rebound Extremities Exam Extremities exam: Present normal inspection and full ROM Back Exam Back exam: Present normal inspection and full ROM Neurological Exam Neurological exam: Present alert and oriented X3 Psychiatric Psychiatric exam: Present normal affect and normal mood Skin Skin exam: Present warm and dry Medical Decision Making Medical Records Medical records reviewed: Yes I reviewed the patient's medical records. Screening: Per USPSTF and CDC recommendations, given the prevalence of disease in our region, it is our hospital?s policy to screen for HIV and viral Hepatitis for all patients aged 18 and over and those with ongoing risk factors. Jon Inquiry Pt receiving controlled substance: No Vital Signs: 05/25/25 21:10 05/25/25 21:20 05/25/25 21:35 Temperature 98.9 F Temperature Source Oral Pulse Rate 55 L 62 Pulse Rate [Radial] 52 L Respiratory Rate 18 Blood Pressure 113/73 135/79 Blood Pressure [Right Arm] 124/70 Blood Pressure Mean [Right Arm] 88 Blood Pressure Position Blood Pressure Position [Right Arm] Sitting 02 Sat by Pulse Oximetry 97 94 L 93 L Oxygen Delivery Method Room Air 05/25/25 21:40 05/25/25 22:01 05/25/25 22:12 Temperature Temperature Source Pulse Rate 56 L 73 85 Pulse Rate [Radial] Respiratory Rate Blood Pressure 126/76 140/70 143/77 H Blood Pressure [Right Arm] Blood Pressure Mean [Right Arm] Blood Pressure Position Blood Pressure Position [Right Arm] 02 Sat by Pulse Oximetry 96 100 97 Oxygen Delivery Method 05/25/25 22:21 05/25/25 22:41 05/25/25 22:50 Temperature Temperature Source Pulse Rate 98 H 69 74 Pulse Rate [Radial] Respiratory Rate Blood Pressure 140/67 134/72 137/66 Blood Pressure [Right Arm] Blood Pressure Mean [Right Arm] Blood Pressure Position Blood Pressure Position [Right Arm] 02 Sat by Pulse Oximetry 96 95 97 Oxygen Delivery Method 05/25/25 23:35 Temperature 98.1 F Temperature Source Pulse Rate 52 L Pulse Rate [Radial] Respiratory Rate 16 Blood Pressure 148/72 H Blood Pressure [Right Arm] Blood Pressure Mean [Right Arm] Blood Pressure Position Sitting Blood Pressure Position [Right Arm] 02 Sat by Pulse Oximetry Oxygen Delivery Method Room Air Lab Data Lab results reviewed: Yes I reviewed the patient's lab results. Lab Results 05/25/25 21:50: Sodium 141, Potassium 4.0, Chloride 103, Carbon Dioxide 29, Anion Gap 13.0, BUN 14, Creatinine 0.90, Estimated Creat Clear 221, Estimated GFR 101, Est GFR ( Amer) 122, Glucose 99, Calcium 9.4, Total Bilirubin 0.6, AST 26, ALT 18, Alkaline Phosphatase 48, Troponin I < 0.01, Total Protein 7.9, Albumin 4.6, Globulin 3.3 H, Albumin/Globulin Ratio 1.4, Lipase 155 05/25/25 22:00: WBC 8.1, RBC 4.82, Hgb 14.7, Hct 43.3, MCV 89.8, MCH 30.5, MCHC 33.9, RDW 11.9, Plt Count 229, MPV 10.2, Neut % (Auto) 55.4, Lymph % (Auto) 32.3, [place] % (Auto) 9.5 H, Eos % (Auto) 1.7, Baso % (Auto) 0.5, Neut # (Auto) 4.5, Lymph # (Auto) 2.6, [place] # (Auto) 0.8, Eos # (Auto) 0.1, Baso # (Auto) 0.0 05/25/25 23:04: Troponin I < 0.01 05/25/25 22:00 05/25/25 21:50 Orders (Tests/Meds): ED MEDICATIONS Discontinued Medications Generic Name Dose Route Start Last Admin Trade Name Freq PRN Reason Stop Dose Admin Albuterol/Ipratropium 9 ml 05/25/25 21:26 05/25/25 21:49 Ipratropium/Albuterol 3 Ml Neb 05/25/25 21:27 9 ml ONCE ONE Administration Albuterol/Ipratropium 2 puff 05/25/25 23:06 05/25/25 23:35 Combivent 20mcg/100mcg Respimat Inhaler 05/25/25 23:07 2 puff ONCE ONE Administration Dexamethasone 10 mg 05/25/25 23:01 05/25/25 23:06 Dexamethasone 4mg Tablet PO 05/25/25 23:02 10 mg ONCE ONE Administration ORDERS Category Date Time Status CXR 2 view (NOT portable) [XR chest 2V] Stat Exams 05/25/25 21:27 Completed CBC w/Auto Diff [Complete Blood Count Auto Diff] Stat Lab 05/25/25 22:00 Completed CMP [Comprehensive Metabolic Panel] Stat Lab 05/25/25 21:50 Completed Lipase Stat Lab 05/25/25 21:50 Completed Trop I [Troponin I] Stat Lab 05/25/25 21:50 Completed Troponin I Stat Lab 05/25/25 23:04 Completed Medical Decision Narrative: Patient is an otherwise healthy 29-year-old male who presented to the emergency department with chest pain and shortness of breath. On arrival, patient was hemodynamically stable with unremarkable vital signs. Differential includes but not limited to: ACS/ND, asthma exacerbation, pneumonia, pleural effusion, pneumothorax, amongst others. Patient is PERC negative therefore low concern for pulmonary embolism. Labs were reviewed and interpreted by myself: CBC showed no leukocytosis, hemoglobin was stable. CMP was unremarkable. Troponin less than 0.01. Lipase normal. X-ray was reviewed and interpreted by myself and showed no acute pathology. Was given a dose of dexamethasone as well as breathing treatments here in the emergency department and patient reported that his chest pressure was completely resolved. Patient symptoms likely related to asthma exacerbation however given that patient's chest pain has only started just prior to arrival, I felt that second troponin was warranted. Patient stated that he had a ride home and did not want to wait for the second troponin. Risks and benefits were discussed and patient ultimately signed out AMA. Patient was sent with a albuterol inhaler and patient was discharged home in stable condition. Critical Care Critical Care Time Critical Care Time: No
--- OUTSIDE RECORDS SUMMARY | 2025-05-25 21:17 | XMS_ITS | Encounter Summary ---
Author Organization Healthcare Address [address] [place] [address] Care Team Providers Care Apprenticeship Training Representative Name Role Phone Slim Yuen MD Primary Care Provider [phone] Encounter Details Date Type Department Care Team (Late st Contact Info) Description 11/20/2022 Telephone [facility] [address] [id number] Ada Surgeon, [address] [place], [place] [id number] Social History Tobacco Use Types Packs/Day Years Used Date Smoking Tobacco: Passive Smo ke Exposure - Never Smoker Smokeless Tobacco: Current Chew Alcohol Use Standard Drinks/Week Comments Not Currently 0 (1 standard drink = 0.6 oz pur e alcohol) Sex and Gender Information Value Date Recorded Sex Assigned at Male 09/11/2022 12:20 AM EST Legal Sex Male 6:44 PM EDT Gender Identity Male 09/11/2022 12:20 AM EST Sexual Orientation Straight 09/11/2022 12 :20 AM EST documented as of this encounter Plan of Treatment Not on file documented as of this encounter Visit Diagnoses Not on filedocumented in this encounter Care Teams Apprenticeship Training Representative Relationship Specialty Start Date End Date Slim Yuen MD [address] [place] [id number] PCP - General 01/20/21 documented as of this encounter
--- OUTSIDE RECORDS SUMMARY | 2025-05-25 21:17 | XMS_ITS | Clinical Summary ---
Author Organization Healthcare Address [address] [place] [address] Care Team Providers Care Social Science Research Assistant Name Role Phone Slim Yuen MD Primary Care Provider Allergies No known active allergies Medications albuterol (Ventolin HFA) 108 (90 Base) MCG/ACT inhaler INHALE 1 TO 2 PUFFS EVERY 4 TO 6 HOURS NEEDED. 05/27/2014 Active chlorhexidine (Peridex) 0.12 % solution Use 15 mL in the mouth or throat 2 (two) times a day. 473 mL 10/27/2021 Active Active Problems No known active problems Family History Medical History Relation Name Comments Heart attack Maternal Grandmother Rheumatic fever Mother Relation Name Status Comments Maternal Grandmother Mother Social History Tobacco Use Types Packs/Day Years [...] Orientation Straight 09/11/2022 12 :20 AM EST Last Filed Vital Signs Vital Sign Reading Time Taken Comments Blood Pressure 131/83 06/08/2022 10:20 AM EDT Pulse 96 06/08/2022 10:20 AM EDT Temperature - - Respiratory Rate - - Oxygen Saturation - - Inhaled Oxygen Concentration - - Weight 165 kg (363 lb 12.1 oz) 06/08/2022 10:20 AM EDT Height 185 cm (6' 0.84 ) 07/02/2014 10:54 AM EDT Body Mass Index - - Plan of Treatment Health Maintenance Due Date Last Done Comments Dental Oral Exam 1997 Dental Prophylaxis 1997 Dental X-Ray: Bitewings 1997 [facility]-Depression Screening 1997 [facility]-HIV Screening 1997 [facility]-Hepatitis C Screening 1997 [facility]-/Child/Adol SDOH Screenings 1997 [facility]-Varicella Vaccines (2 of 2 - 2-dose childhood series) 2001 10/18/2000 [facility]- SDOH Screenings 2015 [facility]-Adult SDOH Screenings 2015 [facility]-DTaP,Tdap,and Td Vaccines (1 - Tdap) 2016 HPV Vaccines (1 - 3-dose SCDM series) 2024 Dental X-Ray: Full Mouth 03/07/2025 03/06/2022 [id number] Vaccine (1 - season) 2025 [facility]-Influenza Vaccine (#1) 2025 [facility]-Zoster Vaccines (1 of 2) 2047 10/18/2000 [facility]-HIB Vaccines Completed 10/18/2000, 11/18/1998 [facility]-Hepatitis B Vaccines Completed 001, 11/18/1998, 1997 [facility]-Hepatitis A Vaccines Aged Out No longer eligible based on patient's age to complete this topic [facility]-IPV Vaccines Aged Out No longer e ligible based on patient's age to complete this topic [facility]-Pneumococcal Vaccine: Pediatrics (0 to 5 Years) and At-Risk Patients (6 to 49 Years) Aged Out No longer eligible b ased on patient's age to complete this topic [facility]-Rotavirus Vaccines Aged Out No lo nger eligible based on patient's age to complete this topic Procedures Procedure Name Priority Date/Time Associated Diagnosis Comments PANORAMIC RADIOGRAPHIC IMAGE Routine 03/06/2022 8:15 AM EDT Dental caries from Last 3 Months or Most Recently Relevant to Health Maintenance Insurance [facility] MEDICAID [facility] MEDICAID DENTAL Care Teams Social Science Research Assistant Relationship Specialty Start Date End Date Slim Yuen MD [address] [place] [address] [place] [address] PCP - General 01/20/21
--- NOTE | 2025-05-25 21:27 | XR_ITS ---
PROCEDURE INFORMATION: Exam: XR Chest Exam date and time: 05/25/2025 9:20 PM Age: 29 years old Clinical indication: Pain and condition or disease; Lung condition and disease; Asthma; Shortness of breath; Chest pressure; Additional info: Chest pressure and shortness of breath TECHNIQUE: Imaging protocol: Radiologic exam of the chest. Views: 2 views. Total images: 3 COMPARISON: CR XR CHEST 2V 07/28/2024 10:15 PM FINDINGS: Lungs: Unremarkable. No consolidation. No pulmonary vascular congestion or edema. Pleural spaces: Unremarkable. No pleural effusion. No pneumothorax. Heart/Mediastinum: Unremarkable. No cardiomegaly. No mediastinal widening or hilar enlargement. Bones/joints: Unremarkable. IMPRESSION: No radiographically acute cardiopulmonary process.
[2025-05-25] MEDS: IPRATROPIUM/ALBUTEROL 3 ML NEB 9 ML IH (21:49)
--- NOTE | 2025-05-25 22:00 | PC.NURSE ---
additional purple top collected sent to the lab at this time upon request of the lab.
--- NOTE | 2025-05-25 22:02 | ECG_ITS ---
APPROVED REPORT Exam: Resting ECG HR:59 bpm ECG Measurements Heart Rate 59 AXES OK 162 P 10 QRSd 119 QRS 102 QT 401 T 15 QTc 401 Conclusion SINUS BRADYCARDIA RIGHT AXIS DEVIATION [QRS AXIS > 100] MODERATE INTRAVENTRICULAR CONDUCTION DELAY [110+ ms QRS DURATION] ABNORMAL ECG UNCONFIRMED REPORT Electronically signed by : ELMER JACKSON, 05/26/2025 07:43:49
[2025-05-25 22:03] LABS: Albumin Level 4.6 g/dl (3.5-5.0); Chloride 103 mmol/L (98-107); Potassium 4.0 mmoL/L (3.5-5.1); Sodium 141 mmol/L (136-145)
[2025-05-25 22:05] LABS: Alanine Aminotransferase 18 U/L (12-78); Anion Gap 13.0 mEq/L (5-15); Aspartate Amino Transferase 26 U/L (17-59); Blood Urea Nitrogen 14 mg/dl (9-20); Carbon Dioxide 29 mmol/L (22.0-30.0); Creatinine Clearance Estimated 221 mL/min (50-200); Creatinine,Serum 0.90 mg/dl (0.66-1.25); Estimated Glomerular Filt Rate 101 ml/min (>60); GFR (African American) 122 ML/MIN (>60)
[2025-05-25 22:05] LABS: Hematocrit 43.3 % (42.0-52.0); Hemoglobin 14.7 g/dL (14.1-18.0); Immature Granulocytes % 0.6 %; Mean Corpuscular HGB Conc 33.9 g/dL (31.8-35.4); Mean Corpuscular Hemoglobin 30.5 pg (27.0-31.2); Mean Corpuscular Volume 89.8 fl (80-94); Nucleated Red Blood Cells % 0 %; Platelet Count 229 K/mm3 (142-424); Red Blood Count 4.82 M/mm3 (4.60-6.20); Red Cell Distribution Width-SD 39.1 fL; White Blood Count 8.1 K/mm3 (4.8-10.8)
[2025-05-25 22:06] LABS: Albumin/Globulin Ratio 1.4 (1.1-1.8); Alkaline Phosphatase 48 U/L (38-126); Bilirubin,Total 0.6 mg/dl (0.2-1.3); Calcium 9.4 mg/dl (8.4-10.2); Globulin 3.3 g/dL (1.3-3.2); Glucose 99 mg/dl (74-100); Lipase 155 U/L (23-300); Total Protein,Serum 7.9 g/dl (6.3-8.2)
[2025-05-25 22:22] LABS: Troponin I < 0.01 ng/ml (0.00-0.034)
--- NOTE | 2025-05-25 23:05 | PC.NURSE ---
2nd banks collected and sent to the lab
[2025-05-25] MEDS: DEXAMETHASONE 4MG TABLET 10 MG PO (23:06)
[2025-05-25] MEDS: COMBIVENT 20MCG/100MCG RESPIMAT INHALER 2 PUFF IH (23:35)
[2025-05-25 23:49] LABS: Troponin I < 0.01 ng/ml (0.00-0.034)
== END 2025-05-25 23:36 | disposition left against medical advice (07) ==
PROVIDERS: Emergency Provider Student in an Organized Health Care Education/Training Program; PCP Internal Medicine Adolescent Medicine
DX: R07.9 Chest pain, unspecified (principal); J45.901 Unspecified asthma with (acute) exacerbation
CPT/HCPCS: 71046; 80053; 83690; 84484; 85025; 93005; 99284; J8540

== ENCOUNTER 2025-08-29 19:03 | Emergency (ER) | payer BC, SELFPAY ==
--- OUTSIDE RECORDS SUMMARY | 2025-08-26 11:08 | XMS_ITS | Continuity of Care Document ---
Author Organization [facility] MyCoop Phone Care Team Providers Care Psychiatric Arnp Name Role Phone JULIO CESAR WILLIS Admitting [place] Primary Care BENJAMIN MORAN Unavailable JULIO CESAR WILLIS Primary Attending JULIO CESAR WILLIS Unavailable ALLERGIES AND ADVERSE REACTIONS ALLERGIES AND ADVERSE REACTIONS Code System Allergy Substance Adverse Reaction Date Reaction (Severity) Comment Status Reported By Updated By ahmet (Free Text Allergy) Adverse reaction to substance feels like throat closes active Patient [id number] on August 20, 2025 6:36:07 AM [facility] ASSESSMENTS Suicidal thoughts ; Depressive disorder ; Chronic post-traumatic stress disorder ; Insomnia ; FAMILY HISTORY RELATION: Father Status: LIVING SNOMED-CT Diagnosis Age At Onset [id number] Heart disease 60012309 Diabetes mellitus 476950641 History of cerebrovascular accid ent without residual deficits 495853010 H/O: malignant neoplasm 53450693 Bipolar disorder 66836478 Alcohol dependence RELATION: Mother Status: LIVING SNOMED-CT Diagnosis Age At Onset 70350528 Heart disease 957722235 Fibromyalgia 99797167 Benign neoplasm of tonsil 623242204 Insomnia RELATION: Brother Status: LIVING SNOMED-CT Diagnosis Age At Onset 19851027 Epilepsy 105271451 Irregular heart beat 01101324 Schizophrenia RELATION: Sister Status: LIVING SNOMED-CT Diagnosis Age At Onset 04342059 Bipolar disorder 276176405 Irregular heart beat 69121016 Epilepsy 10984924 Chronic obstructive pulmonary di sease 264461969 Asthma RELATION: Sister Status: LIVING SNOMED-CT Diagnosis Age At Onset 745386778 Poor short-term memory 217810911 Traumatic brain injury RELATION: Son Status: LIVING SNOMED-CT Diagnosis Age At Onset Information not available RELATION: Son Status: LIVING SNOMED-CT Diagnosis Age At Onset Information not available RELATION: Daughter Status: LIVING SNOMED-CT Diagnosis Age At Onset Information not available RELATION: Daughter Status: LIVING SNOMED-CT Diagnosis Age At Onset [id number] Speech delay PROBLEMS PATIENT PROBLEMS Code Description/Comments Category Status Upda ben[place] By [id number] Suicidal thoughts active [id number] on August 20, 2025 2:12:54 AM UT 10660881 Depressive disorder active [id number] on August 20, 2025 2:04:58 PM UT 130071970 Chronic post-traumat ic stress disorder active [id number] on August 20, 2025 2:05:09 PM UT 525468978 Insomnia active [id number] on Aug 2:05:18 PM UT RESULTS Patient: SONDRA Rivers Date of : 1995 1 LABORATORY RESULTS ORDER 100: ACETAMINOPHEN TYL ENOL (LOINC: 3298-7) ORDER DATE: August 19, 2025 11:44:00 PM UT Specimen Source: Serum Specimen Type: Serum specime n PERFORMING LAB: [address] [id number] Result Comment: Final Result Date: August 20, 2025 1:06:00 AM UT (TECH: SF) LOINC TEST FLAG RESULT REFERENCE RANGE UPDA BENNY BY 3298-7 Acetaminophen [Mass/volume] in Serum or Plasma L 0 ug/mL 10 ug/mL - 30 ug/mL August 20, 2025 1:06:00 AM UT (TECH: SF) ORDER 200: CBC AUTO W DIFF ( LOINC: 43157-8) ORDER DATE: August 19, 2025 11:44:00 PM UT Specimen Source: Whole Blood Specimen Type: Whole blood s ample PERFORMING LAB: [address] [id number] Result Comment: Final Result Date: August 20, 2025 12:56:00 AM UT (TECH: SF) LOINC TEST FLAG RESULT REFERENCE RANGE UPDA BENNY BY 6690-2 Leukocytes [#/volume] in Blood by Automated count N 10.1 10^3/uL 4.5 10^3/uL - 11.5 10^3/uL August 20, 2025 12:56:00 AM UT (TECH: SF) 789-8 Erythrocytes [#/volume] in Blood by Automated count N 5.06 10^6/uL 4.25 10^6/uL - 5.57 10^6/uL August 20, 2025 12:56:00 AM UTC ([place]: Limundo) 718-7 Hemoglobin [Mass/volume] in Blood N 15.7 g/dL 13.5 g/dL - 17.2 g/dL August 20, 2025 12:56:00 AM UTC (TECH: Limundo) 27372-7 Hematocrit [Volume Fraction] of Blood N 45.8 % 42.0 % - 52.0 % August 20, 2025 12:56:00 AM UTC (TECH: Limundo) 787-2 Erythrocyte mean corpuscular volume [Entitic volume] by Automated count N 90.5 fl 80 fl - 95 fl August 20, 2025 12:56:00 AM UTC (TECH: Limundo) 14309-1 Erythrocyte mean corpuscular hemoglobin [Entitic mass] in Blood from [place] by Automated count N 31.0 pg 27.0 pg - 34.0 pg August 20, 2025 12:56:00 AM UTC (Aldis: Limundo) 36701-1 Erythrocyte mean corpuscular hemoglobin concentration [Mass/volume] in Blood from Fetus by Automated count N 34.3 g/dL 32.0 g/dL - 36.0 g/dL August 20, 2025 12:56:00 AM UTC (Aldis: Limundo) 01214-2 Platelets [#/volume] in Blood N 253 10^3/uL 150 10^3/uL - 450 10^3/uL August 20, 2025 12:56:00 AM UTC (TECH: Limundo) 36390-5 Erythrocyte distribution width [Ratio] L 12.2 % 12.3 % - 15.1 % August 20, 2025 12:56:00 AM UTC (TECH: Limundo) 82420-2 Platelet mean volume [Entitic volume] in Blood by Automated count N 9.7 fl 7.4 fl - 10.4 fl August 20, 2025 12:56:00 AM UTC (TECH: Limundo) 12357-1 Granulocytes/100 leukocytes in Blood by Automated count H 77.9 % 40 % - 75 % August 20, 2025 12:56:00 AM UTC (TECH: SF) 736-9 Lymphocytes/100 leukocytes in Blood by Automated count L 13.1 % 15 % - 57 % August 20, 2025 12:56:00 AM UTC (TECH: SF) 5905-5 Monocytes/100 leukocytes in Blood by Automated count N 7.0 % 4.0 % - 12.0 % August 20, 2025 12:56:00 AM UTC (TECH: SF) 713-8 Eosinophils/100 leukocytes in Blood by Automated count N 0.4 % 0.0 % - 4.0 % August 20, 2025 12:56:00 AM UTC (TECH: SF) 706-2 Basophils/100 leukocytes in Blood by Automated count N 0.3 % 0.0 % - 1.0 % August 20, 2025 12:56:00 AM UTC (TECH: SF) 11156-8 Immature granulocytes [#/volume] in Blood H 1.3 % 0.0 % - 0.8 % August 20, 2025 12:56:00 AM UTC (TECH: SF) 34430-6 Granulocytes [#/volume] in Blood by Automated count N 7.90 10^3/uL August 20, 2025 12:56:00 AM UTC (TECH: SF) 731-0 Lymphocytes [#/volume] in Blood by Automated count N 1.33 10^3/uL August 20, 2025 12:56:00 AM UTC (TECH: SF) 742-7 Monocytes [#/volume] in Blood by Automated count N 0.71 10^3/uL August 20, 2025 12:56:00 AM UTC (TECH: SF) 711-2 Eosinophils [#/volume] in Blood by Automated count N 0.04 10^3/uL August 20, 2025 12:56:00 AM UTC (TECH: SF) 704-7 Basophils [#/volume] in Blood by Automated count N 0.03 10^3/uL August 20, 2025 12:56:00 AM UTC (TECH: SF) 90888-2 Immature granulocytes [#/volume] in Blood N 0.13 10^3/uL August 20, 2025 12:56:00 AM UTC (TECH: SF) 60984-4 Manual differential performed [Presence] in Blood N NO August 20, 2025 12:56:00 AM [facility] (TECH: Limundo) ORDER 300: COMP METABOLIC PA LARRY (LOINC: 77266-7) ORDER DATE: August 19, 2025 11:44:00 PM UT Specimen Source: Serum Specimen Type: Serum specime n PERFORMING LAB: [address] [id number] Result Comment: Final Result Date: August 20, 2025 1:12:00 AM [facility] (TECH: Limundo) LOINC TEST FLAG RESULT REFERENCE RANGE UPDA BENNY BY 2951-2 Sodium [Moles/volume ] in Serum or Plasma N 142 mmol/L 136 mmol/L - 145 mmol/L August 20, 2025 1:12:00 AM UT (TECH: Limundo) 2823-3 Potassium [Moles/volume] in Serum or Plasma N 4.0 mmol/L 3.5 mmol/L - 5.1 mmol/L August 20, 2025 1:12:00 AM [facility] (TECH: Limundo) 5-0 Chloride [Moles/volume] in Serum or Plasma N 103 mmol/L 98 mmol/L - 107 mmol/L August 20, 2025 1:12:00 AM UT (TECH: Limundo) 2027-9 Carbon dioxide, tota l [Moles/volume] in Serum or Plasma H 33 mmol/L 21 mmol/L - 32 mmol/L August 20, 2025 1:12:00 AM [facility] (Ald[place]: Limundo) 30823-9 Anion gap 3 in Serum or Plasma N 6.0 August 20, 2025 1:12:00 AM [facility] (TECH: Limundo) 2345-7 Glucose [Mass/volume ] in Serum or Plasma H 122 mg/dL 70 mg/dL - 110 mg/dL August 20, 2025 1:12:00 AM UT (TECH: Limundo) 3094-0 Urea nitrogen [Mass/volume] in Serum or Plasma N 10 mg/dL 7 mg/dL - 18 mg/dL August 20, 2025 1:12:00 AM [facility] (TECH: Limundo) 2160-0 Creatinine [Mass/volume] in Serum or Plasma N 1.0 mg/dL 0.8 mg/dL - 1.3 mg/dL August 20, 2025 1:12:00 AM [facility] (TECH: Limundo) 3097-3 Urea nitrogen/Creatinine [Mass Ratio] in Serum or Plasma N 10.0 9 - 21 August 20, 2025 1:12:00 AM [facility] ([employer]) 67627-8 Glomerular filtratio n rate/1.73 sq M.predicted by Creatinine-based formula (MDRD) N 105 mL/min >60 August 20, 2025 1:12:00 AM [facility] ([employer]) 57710-4 Osmolality of Serum or Plasma by calculated by sum of electrolytes N 295 mosm/kg 275 mosm/kg - 301 mosm/kg August 20, 2025 1:12:00 AM [facility] ([employer]) 2885-2 Protein [Mass/volume ] in Serum or Plasma N 7.8 g/dL 6.4 g/dL - 8.2 g/dL August 20, 2025 1:12:00 AM [facility] ([employer]) 1751-7 Albumin [Mass/volume ] in Serum or Plasma N 3.9 g/dL 3.4 g/dL - 5.0 g/dL August 20, 2025 1:12:00 AM [facility] ([employer]) 03716-3 Calcium [Mass/volume ] in Serum or Plasma N 9.4 mg/dL 8.5 mg/dL - 10.1 mg/dL August 20, 2025 1:12:00 AM [facility] ([employer]) 49754-5 Calcium [Mass/volume ] corrected for total protein in Serum or Plasma N 9.5 mg/dL 8.5 mg/dL - 10.1 mg/dL August 20, 2025 1:12:00 AM [facility] ([employer]) 1975-2 Bilirubin.total [Mass/volume] in Serum or Plasma N 0.5 mg/dL 0.4 mg/dL - 1.5 mg/dL August 20, 2025 1:12:00 AM [facility] ([employer]) 1920-8 Aspartate aminotransferase [Enzymatic activity/volume] in Serum or Plasma L 11 U/L 15 U/L - 37 U/L August 20, 2025 1:12:00 AM [facility] ([employer]) 1742-6 Alanine aminotransferase [Enzymatic activity/volume] in Serum or Plasma N 18 U/L 12 U/L - 78 U/L August 20, 2025 1:12:00 AM [facility] ([employer]) 6768-6 Alkaline phosphatase [Enzymatic activity/volume] in Serum or Plasma N 55 U/L 50 U/L - 170 U/L August 20, 2025 1:12:00 AM UTC (TECH: Limundo) ORDER 400: ALCOHOL ETHANOL Q UANT (LOINC: 5645-7) ORDER DATE: August 19, 2025 11:44:00 PM UTC Specimen Source: Serum Specimen Type: Serum specime n PERFORMING LAB: [address] [id number] Result Comment: Final Result Date: August 20, 2025 1:07:00 AM UTC (TECH: SF) LOINC TEST FLAG RESULT REFERENCE RANGE UPDA BENNY BY 5645-7 Ethanol [Mass/volume] in Urine N <3 mg/dL 0 mg/dL - 10 mg/dL August 20, 2025 1:07:00 AM UT (TECH: SF) ORDER 500: SALICYLATE QUANT (LOINC: 4024-6) ORDER DATE: August 19, 2025 11:44:00 PM UT Specimen Source: Serum Specimen Type: Serum specime n PERFORMING LAB: [address] [id number] Result Comment: Final Result Date: August 20, 2025 1:07:00 AM UT (TECH: SF) LOINC TEST FLAG RESULT REFERENCE RANGE UPDA BENNY BY 4024-6 Salicylates [Mass/volume] in Serum or Plasma L 1.3 mg/dl 2.8 mg/dl - 20 mg/dl August 20, 2025 1:07:00 AM UT (TECH: SF) ORDER 600: URINE DRUG SCREEN - EXL MAX (LOINC: 18190-1) ORDER DATE: August 19, 2025 11:44:00 PM UT Specimen Source: URINE Specimen Type: Urine specime n PERFORMING LAB: [address] [id number] Result Comment: Final Result Date: August 20, 2025 12:38:00 AM UT (TECH: Limundo) LOINC TEST FLAG [place] [address]-4 Amphetamine+Methamph et amine [Presence] in Urine N NEGATIVE NEGATIVE August 20, 2025 12:38:00 AM UTC (TECH: SF) 3377-9 Barbiturates [Presence] in Urine N NEGATIVE NEGATIVE August 20, 2025 12:38:00 AM UTC (TECH: SF) 57501-7 Benzodiazepine metabolites [Presence] in Urine by Screen method N NEGATIVE NEGATIVE August 20, 2025 12:38:00 AM UTC (TECH: Limundo) 3414-0 Buprenorphine [Presence] in Urine N NEGATIVE NEGATIVE August 20, 2025 12:38:00 AM UTC (TECH: SF) 3397-7 Cocaine [Presence] i n Urine N NEGATIVE NEGATIVE August 20, 2025 12:38:00 AM UTC (TECH: Limundo) 69868-7 Methadone [Presence] in Specimen N NEGATIVE NEGATIVE August 20, 2025 12:38:00 AM UTC (TECH: Limundo) 23700-6 Opiates [Mass/volume ] in Specimen N NEGATIVE NEGATIVE August 20, 2025 12:38:00 AM UTC (TECH: Limundo) 21893-8 oxyCODONE [Presence] in Specimen N NEGATIVE NEGATIVE August 20, 2025 12:38:00 AM UTC (TECH: Limundo) 3427-2 Cannabinoids [Presence] in Urine POSITIVE NEGATIVE August 20, 2025 12:38:00 AM UTC (TECH: Limundo) 99835-6 Phencyclidine [Presence] in Specimen N NEGATIVE NEGATIVE August 20, 2025 12:38:00 AM UTC (TECH: Limundo) 21541-5 Fentanyl [Presence] in Urine N NEGATIVE NEGATIVE August 20, 2025 12:38:00 AM UTC (TECH: Limundo) 91174-1 Tricyclic antidepressants [Presence] in Specimen N NEGATIVE NEGATIVE August 20, 2025 12:38:00 AM UT (TECH: SF) 87905-4 Internal control result N PASS PASS August 20, 2025 12:38:00 AM UT (TECH: SF) ORDER 700: UA AND MICRO/CULT IF INDICATED (LOINC: 98643-6) ORDER DATE: August 19, 2025 11:44:00 PM UTC Specimen Source: URINE Specimen Type: Urine specime n PERFORMING LAB: [address] [id number] Result Comment: Final Result Date: August 20, 2025 12:30:00 AM UTC (TECH: SF) LOINC TEST FLAG RESULT REFERENCE RANGE UPDA BENNY BY 5778-6 Color of Urine N yellow YELLOW Decem 2024 12:30:00 AM UTC (TECH: SF) 5767-9 Appearance of Urine N clear CLEAR August 20, 2025 12:30:00 AM UTC (TECH: Limundo) 5792-7 Glucose [Mass/volume] in Urine by Test strip N NORM NORMAL August 20, 2025 12:30:00 AM UTC (TECH: Limundo) 55771-2 Bilirubin.total [Mass/volume] in Urine by Automated test strip N NEGATIVE NEGATIVE August 20, 2025 12:30:00 AM UTC (TECH: Limundo) 5797-6 Ketones [Mass/volume] in Urine by Test strip N NEGATIVE NEGATIVE August 20, 2025 12:30:00 AM UTC (TECH: Limundo) 2965-2 Specific gravity of Urine N 1.015 1.005 - 1.035 August 20, 2025 12:30:00 AM UTC (TECH: Limundo) 81450-0 Erythrocytes [#/volume] in Urine by Automated test strip N NEGATIVE NEGATIVE August 20, 2025 12:30:00 AM UTC (TECH: Limundo) 46314-9 pH of Urine by Automated test strip N 7.00 5.0 - 7.5 August 20, 2025 12:30:00 AM UTC (TECH: Limundo) 88505-9 Protein [Presence] in Urine by Test strip N 20 mg/dL NEGATIVE August 20, 2025 12:30:00 AM UTC (TECH: Limundo) 97835-7 Urobilinogen [Mass/volume] in Urine by Automated test strip N 1 mg/dL NORMAL August 20, 2025 12:30:00 AM UTC (TECH: Limundo) 76508-9 Nitrate [Presence] in Urine N NEGATIVE NEGATIVE August 20, 2025 12:30:00 AM UTC (TECH: Limundo) 29851-9 Leukocytes [#/volume] in Urine by Test strip N NEGATIVE NEGATIVE August 20, 2025 12:30:00 AM UTC (TECH: Limundo) 47475-3 Other elements in Urine sediment N NOT REQUIRED August 20, 2025 12:30:00 AM UTC (TECH: Limundo) 49451-2 Microscopic observation [Identifier] in Urine sediment by Light microscopy N NO August 20, 2025 12:30:00 AM UTC (TECH: Limundo) ORDER 1800: LIPID PANEL (AIDA NC: 46403-8) ORDER DATE: August 20, 2025 2:19:00 AM UTC Specimen Source: Serum/Plasm a Specimen Type: Acellular blo od (serum or plasma) specimen PERFORMING LAB: [address] [id number] Result Comment: Final Result Date: August 20, 2025 11:45:00 AM UTC (TECH: [employer]) LOINC TEST FLAG RESULT REFERENCE RANGE UPDA BENNY BY 2571-8 Triglyceride [Mass/volume] in Serum or Plasma N 101 mg/dL 20 mg/dL - 200 mg/dL August 20, 2025 11:45:00 AM UTC (TECH: [employer]) 2092-3 Cholesterol [Mass/volume] in Serum or Plasma N 127 mg/dL 0 mg/dL - 200 mg/dL August 20, 2025 11:45:00 AM UTC (TECH: [employer]) 2084-9 Cholesterol in HDL [Mass/volume] in Serum or Plasma L 32 mg/dL 60 mg/dL August 20, 2025 11:45:00 AM UTC (TECH: [employer]) 96441-0 Cholesterol in LDL [Mass/volume] in Serum or Plasma by calculation L 75 mg/dL 100 mg/dL August 20, 2025 11:45:00 AM UTC (TECH: [employer]) 2094-8 Cholesterol in HDL/Cholesterol.tota l [Mass Ratio] in Serum or Plasma N 4 - 5 August 20, 2025 11:45:00 AM UT (TECH: [employer]) ORDER 1900: THYROID STIMULAT ING HORMONE (LOINC: 3016-3) ORDER DATE: August 20, 2025 2:19:00 AM UT Specimen Source: Serum/Plasm a Specimen Type: Acellular blo od (serum or plasma) specimen PERFORMING LAB: [address] [id number] Result Comment: Final Result Date: August 20, 2025 11:45:00 AM UT (TECH: [employer]) LOINC TEST FLAG RESULT REFERENCE RANGE UPDA BENNY BY 3016-3 Thyrotropin [Units/volume] in Serum or Plasma N 1.16 mIU/mL 0.34 mIU/mL - 4.80 mIU/mL August 20, 2025 11:45:00 AM UT (TECH: [employer]) ORDER 2000: RPR QUAL W REFLE X (LOINC: 81549-0) ORDER DATE: August 20, 2025 2:19:00 AM UTC Specimen Source: Serum Specimen Type: Serum specime n PERFORMING LAB: [address] [id number] Result Comment: August 21, 2025 1:11:00 PM UTC Performed at: [facility] Result Comment: August 21, 2025 1:11:00 PM UTC [address] [place], [place] [id number] Result Comment: August 21, 2025 1:11:00 PM UTC Marketing Officer: Janes Willis PhD, Phone: [phone] Result Comment: August 21, 2025 1:11:00 PM UTC Final Result Date: August 20, 2025 11:04:00 AM UTC (TECH: LAB) LOINC TEST FLAG [place] [address]-7 Reagin Ab [Presence] in Serum by RPR N Non Reactive Non Reactive August 20 11:04:00 AM UTC (TECH: LAB) ORDER 2100: BILIRUBIN DIRECT (LOINC: 1968-7) ORDER DATE: August 20, 2025 2:19:00 AM UTC Specimen Source: Serum/Plasm a Specimen Type: Acellular blo od (serum or plasma) specimen PERFORMING LAB: [address] [id number] Result Comment: Final Result Date: August 20, 2025 11:45:00 AM UT (TECH: [employer]) LOINC TEST FLAG RESULT REFERENCE RANGE UPDA BENNY BY 1968-7 Bilirubin.direc t [Mass/volume] in Serum or Plasma N 0.2 mg/dL 0.0 mg/dL - 0.3 mg/dL August 20, 2025 11:45:00 AM UTC (TECH: [employer]SM) ORDER 2200: T4 TOTAL (LOINC: 3026-2) ORDER DATE: August 20, 2025 2:19:00 AM UTC Specimen Source: Serum/Plasm a Specimen Type: Acellular blo od (serum or plasma) specimen PERFORMING LAB: [address] [id number] Result Comment: Final Result Date: August 20, 2025 11:45:00 AM UTC (TECH: [employer]SM) LOINC TEST FLAG RESULT REFERENCE RANGE UPDA BENNY BY 3026-2 Thyroxine (T4) [Mass/volume] in Serum or Plasma N 5.9 ug/dL 4.5 ug/dL - 12.1 ug/dL August 20, 2025 11:45:00 AM UTC (TECH: KSM) ORDER 2300: GLUCOSE (LOINC: 2345-7) ORDER DATE: August 20, 2025 2:19:00 AM UTC Specimen Source: Serum/Plasm a Specimen Type: Acellular blo od (serum or plasma) specimen PERFORMING LAB: [address] [id number] Result Comment: Final Result Date: August 20, 2025 11:45:00 AM UTC (TECH: KSM) LOINC TEST FLAG RESULT REFERENCE RANGE UPDA BENNY BY 2345-7 Glucose [Mass/volume] in Serum or Plasma H 126 mg/dL 70 mg/dL - 110 mg/dL August 20, 2025 11:45:00 AM UTC (TECH: KSM) ORDER 2400: HEMOGLOBIN A1C ( LOINC: 4548-4) ORDER DATE: August 20, 2025 2:19:00 AM UTC Specimen Source: Whole Blood Specimen Type: Whole blood s ample PERFORMING LAB: [address] [id number] Result Comment: Final Result Date: August 20, 2025 11:34:00 AM UTC (TECH: KSM) LOINC TEST FLAG RESULT REFERENCE RANGE UPDA BENNY BY 4548-4 Hemoglobin A1c/Hemoglobin.tot al in Blood N 5.5 % 4.5 % - 6.2 % August 20, 2025 11:34:00 AM UTC (TECH: KSM) 80664-7 Glucose mean value [Mass/volume] in Blood Estimated from glycated hemoglobin N 111 mg/dl 82 mg/dl - 131 mg/dl August 20, 2025 11:34:00 AM UTC (TECH: KSM) ORDER 3000: GLUCOSE BLD METE R (LOINC: 99444-8) ORDER DATE: August 20, 2025 12:14:00 PM UTC Specimen Source: Whole Blood Specimen Type: Whole blood s ample PERFORMING LAB: [address] [id number] Result Comment: August 20, 2025 12:18:00 PM UTC Test performed by: [id number] ; Instrument: [id number] Final Result Date: August 20, 2025 12:14:00 PM UTC (TECH: HL[employer]) LOINC TEST FLAG [place] [address]-8 Glucose [Mass/volume ] in Capillary blood by Glucometer H 123 mg/dl 70 mg/dl - 115 mg/dl August 12:14:00 PM [facility] (TECH: HL7) LABORATORY NARRATIVE RESULTS Information is not available RADIOLOGY RESULTS Information is not available PATHOLOGY NARRATIVE RESULTS Information is not available MICROBIOLOGY RESULTS No Micro Labs/Results Exist for Patient BLOOD ADMIN RESULTS Information is not available TREATMENT PLAN DISCHARGE MEDICATIONS Status RXNORM Medication Dose Route Frequency Dates Comments U pdated By Continued [id number] PARoxetine (PAXIL) 10 MG ORAL ONCE DAILY Prescribe d: August 24, 2025 2:18:06 PM UT [id number] on August 24, 2025 2:18:06 PM [facility] Continued 527771 prazosin (MINIPRESS) 1 MG ORAL ONCE EVERY EVENING Prescribe d: August 24, 2025 2:18:06 PM UT for nightmares [id number] on August 24, 2025 2:18:06 PM [facility] Continued 4716560 Ozempic 1 mg/dose (4 mg/3 mL) Pen Injector 0 SUBCUTANEOU S ONCE DAILY Prescribe d: August 24, 2025 2:18:06 PM UT [id number] on August 24, 2025 2:18:06 PM [facility] Continued 135693 buPROPion XL (WELLBUTRIN XL) 150 MG ORAL ONCE DAILY Prescribe d: August 24, 2025 2:18:06 PM [facility] [id number] on August 24, 2025 2:18:06 PM [facility] PATIENT OPEN ORDERS Code System Descripti on Frequency Occurrenc es Priority Category Start Date Ordering Physicia n Updated By [facility] CONSULT WEIGHT AND TEST BAR CLERK ONE TIME 0 Routine August 20, 2025 3:48:00 AM [facility] ALBA HARRELL MD [id number] on August 20, 2025 3:48:00 AM [facility] SCHEDULED PROCEDURES Code System Description Status Scheduled Date Upd ated By Patient scheduled procedure information is not available. MEDICATIONS HOME MEDICATIONS Status RXNORM MIC Medication Dose Route Frequency Dates Comments Reported By Updated By Active [id number] 1 Ozempic 1 mg/dose (4 mg/3 mL) Pen Injector 0.0 SUBCUTA NEOUS DAILY Last Dose: [id number] on August 23, 2025 4:10:50 PM UT DISCHARGE MEDICATIONS Status RXNORM ND Medication Dose Route Frequency Dates Dis pense Data Comments Physician Updated By Continu ed [phone] 4004 501 PARoxetine (PAXIL) 10.0 MG ORAL ONCE DAILY Prescr ibed: [facility] 2024 2:18:0 6 PM UTC Fill Status = Unknown, Repeat Number = 0, Quantity = 0 ALBA SEGUNDO [id number] on August 24, 2025 2:18:06 PM [facility] Continu ed [id number] 2261 9054 020 prazosin (MINIPRESS) 1.0 MG ORAL ONCE EVERY EVENING Prescr ibed: [facility] 2024 2:18:0 6 PM UTC Fill Status = Unknown, Repeat Number = 0, Quantity = 0 for nightmare s ALBA HARRELL MD PHY [id number] on August 24, 2025 2:18:06 PM [facility] Continu ed [id number] 0016 9493 001 Ozempic 1 mg/dose (4 mg/3 mL) Pen Injector 0.0 SUBCUT ANEOUS ONCE DAILY Prescr ibed: [facility] 2024 2:18:0 6 PM UTC Fill Status = Unknown, Repeat Number = 0, Quantity = 0 ALBA HARRELL MD PHY [id number] on August 24, 2025 2:18:06 PM [facility] Continu ed [id number] 1542 7031 211 buPROPion XL (WELLBUTRIN XL) 150.0 MG ORAL ONCE DAILY Prescr ibed: [facility] 2024 2:18:0 6 PM UTC Fill Status = Unknown, Repeat Number = 0, Quantity = 0 ALBA HARRELL MD PHY [id number] on August 24, 2025 2:18:06 PM [facility] INPATIENT MEDICATIONS Status RXNORM [facility] Medication Dose Route Frequency Rat e Quantity Dates Indication Dispense Data Comments Physician Updated By Myah inued 0012 1176 130 MAG-AL PLUS 200-200-20 MG/5 ML LIQD 30.0 ML ORAL EVERY TWO HOURS NEEDED Start: [facility] 2024 2:12:0 0 AM UTC End: [facility] 2024 2:18:0 6 PM UTC Fill Status = Completed , Repeat Number = 0, Quantity = 0.000 ALBA HARRELL MD [id number] on August 25, 2025 5:25:00 AM UTC Discont inued 123329 1892 9069 020 loperamide (IMODIUM) 2 MG CAPS 4.0 MG ORAL NEEDED Start: [facility] 2024 2:12:0 0 AM UTC End: [facility] 2024 3:54:2 1 PM UTC Fill Status = Completed , Repeat Number = 0, Quantity = 0.000 ALBA HARRELL MD [id number] on August 23, 2025 3:54:00 PM UTC Discont inued [id number] 7889 7062 211 SENNOSIDES- DOCUSATE SODIUM 8.6-50 MG TABS 1.0 TAB ORAL TWICE A DAY NEEDED Start: [facility] 2024 2:12:0 0 AM UTC End: [facility] 2024 2:18:0 6 PM UTC Fill Status = Completed , Repeat Number = 0, Quantity = 0.000 LABA HARRELL MD [id number] on August 25, 2025 5:25:00 AM UTC Discont inued [id number] dicyclomine (BENTYL) 10 MG CAPS 10.0 MG ORAL EVERY EIGHT HOURS NEEDED Start: [facility] 2024 2:12:0 0 AM UTC End: [facility] 2024 3:54:2 1 PM UTC Fill Status = Completed , Repeat Number = 0, Quantity = 0.000 ALBA HARRELL MD [id number] on August 23, 2025 3:54:00 PM UTC Discont inued [id number] promethazin e (PHENERGAN) 25 MG TABS 25.0 MG ORAL EVERY FOUR HOURS NEEDED Start: [facility] 2024 2:12:0 0 AM UTC End: [facility] 2024 3:54:2 1 PM UTC Fill Status = Completed , Repeat Number = 0, Quantity = 0.000 ALBA HARRELL MD [id number] on August 23, 2025 3:54:00 PM UTC Discont inued [id number] 1171 7055 811 cyclobenzap rine (FLEXERIL) 10 MG TABS 10.0 MG ORAL EVERY EIGHT HOURS NEEDED Start: [facility] 2024 2:12:0 0 AM UTC End: [facility] 2024 3:54:2 1 PM UTC Fill Status = Completed , Repeat Number = 0, Quantity = 0.000 ALBA HARRELL MD [id number] on August 23, 2025 3:54:00 PM UTC Discont inued [id number] 7075 7047 701 hydrOXYzine PAMOATE (VISTARIL) 50 MG CAPS 50.0 MG ORAL EVERY FOUR HOURS NEEDED Start: [facility] 2024 2:12:0 0 AM UTC End: [facility] 2024 3:54:2 1 PM UTC Fill Status = Completed , Repeat Number = 0, Quantity = 2.000 ALBA HARRELL MD [id number] on August 23, 2025 3:54:00 PM UTC Discont inued 453506 3623 4032 055 OLANZapine (ZYPREXA ZYDIS) 5 MG TBDP 5.0 MG ORAL EVERY SIX HOURS NEEDED Start: [facility] 2024 2:12:0 0 AM UTC End: [facility] 2024 2:18:0 6 PM UTC Fill Status = Completed , Repeat Number = 0, Quantity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
[2025-08-29 19:09] VITALS: BP 142/103; PULSE 88; RESP 18; TEMP 37.1; O2SAT 97; BMI 30.4
[2025-08-29 19:12] VITALS: BP 142/103; PULSE 76; RESP 16; O2SAT 98
--- OUTSIDE RECORDS SUMMARY | 2025-08-29 19:13 | XMS_ITS | Encounter Summary ---
Author Organization Healthcare Address [address] [place] [address] Care Team Providers Care Chronic Care Nurse Name Role Phone Slim Yuen MD Primary Care Provider [phone] Encounter Details Date Type Department Care Team (Late st Contact Info) Description 11/20/2022 Telephone [facility] [address] [address] Ada Surgeon, [address] [place], [place] [id number] Social History Tobacco Use Types Packs/Day Years [...] on filedocumented in this encounter Care Teams Chronic Care Nurse Relationship Specialty Start Date End Date lSim Yuen MD [address] [place] [id number] PCP - General 01/20/21 documented as of this encounter
--- OUTSIDE RECORDS SUMMARY | 2025-08-29 19:13 | XMS_ITS | Clinical Summary ---
Author Organization Healthcare Address [address] [place] [address] Care Team Providers Care Etl Manager Name Role Phone Slim Yuen MD Primary Care Provider [phone] Allergies No known active allergies Medications albuterol [...] Dental X-Ray: Bitewings 1997 [facility]-Depression Screening 1997 [facility]-Infant/Child/Adol SDOH Screenings 1997 [facility]-Varicella Vaccines (2 of 2 - 2-dose childhood series) 2001 10/18/2000 [facility]- SDOH Screenings 2015 [facility]-Adult SDOH Screenings 2015 [facility]-DTaP,Tdap,and Td Vaccines (1 - Tdap) 2016 Dental X-Ray: Full Mouth 03/07/2025 03/06/2022 [facility]-HILVD-60 Vaccine (1 - season) 2025 [facility]-Influenza Vaccine (#1) 2025 [facility]-Zoster Vaccines (1 of 2) 2047 10/18/2000 [facility]-HIB Vaccines Completed 10/18/2000, 11/18/1998 [facility]-Hepatitis B Vaccines Completed 001, 11/18/1998, 1997 HPV Vaccines (No Doses Required) Completed [facility]-Hepatitis A Vaccines Aged Out No longer [...] Recently Relevant to Health Maintenance Insurance [employer] [facility] MEDICAID [facility] [place] Dental Care Teams Etl Manager Relationship Specialty Start Date End Date Slim Yuen MD [facility] [place] [address] PCP - General 01/20/21
--- NOTE | 2025-08-29 19:19 | ED_ITS ---
Discharge Plan Disposition Patient Disposition: Home, Self-Care Condition: Good Prescriptions Prescriptions: New doxycycline monohydrate 100 mg capsule 100 mg PO BID 7 Days Qty: 14 0RF No Action Ozempic 0.25 mg or 0.5 mg (2 mg/3 mL) pen injector SQ Patient Comments: INJECT 0.5MG SUBCUTANEOUSLY ONCE A WEEK ondansetron 4 mg tablet,disintegrating 4 mg PO Q8H PRN (Reason: nausea and vomiting) Qty: 10 0RF ibuprofen 800 mg tablet 800 mg PO Q8H PRN (Reason: pain) Qty: 18 0RF Rx Instructions: Please take with food Referrals Follow up/Referrals: Slim Smith MD [Primary Care Provider, Internal Medicine] - See instructions Activity Restrictions/Add. Instructions Additional Instructions/Restrictions: You were seen for suspected STI exposure. Please return here if you have any symptoms. Please see your PCP this week. Clinical Impressions Clinical Impression: Sexually transmitted disease Instructions Patient Instructions: How to Detect and Treat STDs Print Language Print Language: [place] Discharge ED Provider: Lidya Garber General Adult HPI <IAN Low - Last Filed: 08/29/25 19:21> General Chief complaint: Urogenital-Male Stated complaint: needs checked for STD Time Seen by Provider: 08/29/25 19:06 Mode of Arrival: Ambulatory Source of Information: Patient Description of Symptoms (Recalled from ER Triage Doc. by RN): Pt presents to the ED for STD testing. 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 He reports that his now ex-girlfriend thinks she has something . He is unsure of what the symptoms are and the patient has an appointment scheduled with her p 3 armament/ordnance ima technician. The patient denies any discharge, lesions, fever, vomiting. complaint: Possible STI exposure Relieving factors: none Exacerbating factors: none Associated symptoms: denies other symptoms Treatments prior to arrival: none Related Data Home Medications ?Medication ?Instructions ?Recorded ?Confirmed semaglutide 0.25 mg or 0.5 mg (2 mg SQ 11/08/24 mg/3 mL) subcutaneous pen injector (Ozempic) Previous Rx's ?Medication ?Instructions ?Recorded ondansetron 4 mg disintegrating 4 mg PO Q8H PRN nausea and 11/08/24 tablet vomiting #10 tabs ibuprofen 800 mg tablet 800 mg PO Q8H PRN pain #18 t abs 12/06/24 doxycycline monohydrate 100 mg 100 mg PO BID 7 days #1 4 caps 08/29/25 capsule Allergies Allergy/AdvReac Type Severity Reaction Status Date / Time No Known Allergies Allergy Verified 11/08/24 14:36 PFS <IAN Low - Last Filed: 08/29/25 19:21> [facility] Disclaimer: The information contained in this section may have been updated after the patient was seen, as this information can be updated by other users. Medical History (Updated 08/29/25 @ 19:17 by IAN Low) Nausea vomiting and diarrhea Social History Smoking Status: Former smoker tobacco type: smokeless tobacco second hand exposure: No alcohol intake: never current occupational status: employed Travel in the last 8 weeks?: None household members: spouse and children housing: house current occupational exposures/hazards: No Have you lived/traveled outside US in past 30 days?: No Contact w/someone who lives/traveled outside US past 30 days?: No Exposure to someone with infectious disease in past 14 days?: No Do you have a fever (greater than 100.4 F or 38 C)?: No Have you tested positive for COVID-19?: No Exposed to someone with COVID-19 in past 14 days?: No Do you have a sore throat?: No Do you have a cough?: No Do you have any weakness?: No Do you have any diarrhea?: No Are you experiencing any unusual bleeding?: No Do you have any muscle aches/pain?: No Do you have any abdominal pain?: No Are you experiencing loss of taste or smell?: No Other Medical History Have you received the Flu Vaccine for this season: No Have you received the Pneumonia Vaccine: No <IAN Low - Last Filed: 08/29/25 19:21> ROS Obtained: Yes Systems reviewed as appropriate & no additional complaints except as documented Physical Exam <IAN Low - Last Filed: 08/29/25 19:21> General General appearance: alert and in no apparent distress Head Head exam: atraumatic and normocephalic Eye Eye exam: Present normal appearance and EOMI Chest Chest inspection: Present symmetric chest wall rise Respiratory Respiratory exam: Present normal lung sounds bilaterally; Absent wheezes or stridor Cardiovascular Cardiovascular exam: Present regular rate and normal rhythm; Absent systolic murmur Extremities Exam Extremities exam: Present full ROM Neurological Exam Neurological exam: Present alert and oriented X3 Psychiatric Psychiatric exam: Present normal affect and normal mood Skin Skin exam: Present warm, dry and intact Medical Decision Making <IAN Low - Last Filed: 08/29/25 19:21> Medical Records Screening: Per USPSTF and CDC recommendations, given the prevalence of disease in our region, it is our hospital?s policy to screen for HIV and viral Hepatitis for all patients aged 18 and over and those with ongoing risk factors. Jon Inquiry Pt receiving controlled substance: No Vital Signs: 08/29/25 19:09 08/29/25 19:12 Temperature 98.7 F Temperature Source Oral Pulse Rate 76 Pulse Rate [Right] 88 Respiratory Rate 18 16 Blood Pressure 142/103 H Blood Pressure [Right Arm] 142/103 H Blood Pressure Mean [Right Arm] 116 Blood Pressure Source [Right Arm] Automatic Cuff Blood Pressure Position [Right Arm] Sitting 02 Sat by Pulse Oximetry 97 98 Oxygen Delivery Method Room Air Room Air Orders (Tests/Meds): ED MEDICATIONS Discontinued Medications Generic Name Dose Route Start Last Admin Trade Name Freq PRN Reason Stop Dose Admin Ceftriaxone Sodium 1 gm 08/29/25 19:12 08/29/25 19:25 Ceftriaxone 1gm Vial IM 08/29/25 19:13 1 gm ONCE ONE Administration Lidocaine HCl 0 ml 08/29/25 19:12 08/29/25 19:28 Lidocaine 1% 5ml Pf Vial IM 08/29/25 19:13 5 ml ONCE ONE Administration Medical Decision Narrative: In summary patient is a 30-year-old male who presents the emergency department for evaluation of possible STI exposure. Patient is hemodynamically stable upon arrival, afebrile. Unremarkable physical exam. Patient will be treated empirically with Rocephin and doxycycline. Patient given follow-up instructions with his PCP. He is agreeable. <Lidya Garber MD - Last Filed: 08/29/25 19:30> Vital Signs: 08/29/25 19:09 08/29/25 19:12 Temperature 98.7 F Temperature Source Oral Pulse Rate 76 Pulse Rate [Right] 88 Respiratory Rate 18 16 Blood Pressure 142/103 H Blood Pressure [Right Arm] 142/103 H Blood Pressure Mean [Right Arm] 116 Blood Pressure Source [Right Arm] Automatic Cuff Blood Pressure Position [Right Arm] Sitting 02 Sat by Pulse Oximetry 97 98 Oxygen Delivery Method Room Air Room Air Orders (Tests/Meds): ED MEDICATIONS Discontinued Medications Generic Name Dose Route Start Last Admin Trade Name Leonidas PRN Reason Stop Dose Admin Ceftriaxone Sodium 1 gm 08/29/25 19:12 08/29/25 19:25 Ceftriaxone 1gm Vial IM 08/29/25 19:13 1 gm ONCE ONE Administration Lidocaine HCl 0 ml 08/29/25 19:12 08/29/25 19:28 Lidocaine 1% 5ml Pf Vial IM 08/29/25 19:13 5 ml ONCE ONE Administration Medical Decision Narrative: In summary patient is a 30-year-old male who presents the emergency department for evaluation of possible STI exposure. Patient is hemodynamically stable upon arrival, afebrile. Unremarkable physical exam. Patient will be treated empirically with Rocephin and doxycycline. Patient given follow-up instructions with his PCP. He is agreeable. I was consulted by the BARBI, and we discussed the complexity of problems being addressed. I approved the treatment and management plan for this patient's care in the emergency department, thus performing a substantial portion of the medical decision making. Lidya Garber MD Critical Care <IAN Low - Last Filed: 08/29/25 19:21> Critical Care Time Critical Care Time: No
[2025-08-29] MEDS: cefTRIAXone 1GM VIAL 1 GM IM (19:25)
[2025-08-29] MEDS: LIDOCAINE 1% 5ML PF VIAL IM (19:28)
[2025-08-29 19:30] VITALS: BP 140/80; PULSE 85; RESP 16; TEMP 37.1; O2SAT 97
== END 2025-08-29 19:35 | disposition home or self-care (01) ==
PROVIDERS: Emergency Provider Student in an Organized Health Care Education/Training Program; PCP Internal Medicine Adolescent Medicine
DX: Z20.2 Contact with and (suspected) exposure to infections with a predominantly sexual mode of transmission (principal); Z87.891 Personal history of nicotine dependence
CPT/HCPCS: 99283; J0696; J2003